=== PATIENT | female | born 1955 | race Caucasian/White ===

== ENCOUNTER 2018-05-18 17:24 | Emergency (ER) | payer OTHER, SELFPAY ==
[2018-05-18] VITALS (13 sets, daily range): BP systolic 116–145; BP diastolic 52–92; PULSE 64–74; RESP 7–20; TEMP 36.7–37.1; O2SAT 92–98
--- NOTE | 2018-05-18 17:39 | DI.RAD_ITS ---
SYMPTOM/DIAGNOSIS: SOB PA AND LATERAL CHEST: Comparison is made with 04/25/17. Heart size and pulmonary vasculature are within normal limits. The lungs are clear and well expanded. No effusions or pneumothoraces are identified. The bones are intact. IMPRESSION: No acute pulmonary process.
--- NOTE | 2018-05-18 18:01 | W.ED.GENAD ---
Discharge Plan Disposition Patient Disposition: HOME Condition: Improving Discharge Details Chief Complaint: SOB Clinical Impression: Bronchitis, Chronic chest pain, Sinus congestion Primary Care Provider: Bela Navas ED Provider: Maria Eugenia Sheets Home Meds and New Rx's Prescriptions: New prednisone 20 mg tablet 20 mg PO DIRECTED Qty: 12 RF: 0 benzonatate [Tessalon Perles] 100 mg capsule 100 mg PO TID PRN (Reason: cough) Qty: 10 RF: 0 doxycycline hyclate 100 mg capsule 100 mg PO BID 5 Days Qty: 10 RF: 0 Continued atorvastatin 40 MG tablet 40 mg PO DAILY RF: 0 chlorthalidone 25 MG tablet 25 mg PO DAILY Qty: 90 RF: 12 isosorbide mononitrate 30 MG tablet extended release 24 hr 30 mg PO DAILY Qty: 30 RF: 0 Hydralazine HCl 10 MG tablet 10 mg PO BID Qty: 60 RF: 0 amlodipine 2.5 MG tablet 5 mg PO DAILY Qty: 30 RF: 12 epinephrine [EpiPen 2-Jorge] 0.3 MG/0.3 ML auto-injector 0.3 mg IJ DAILY PRN PRNQty: 1 RF: 0 aspirin [Aspir-81] 81 MG tablet,delayed release (DR/EC) 81 mg PO DAILY RF: 0 esomeprazole magnesium 40 MG capsule,delayed release(DR/EC) 40 mg PO DAILY RF: 0 metoprolol tartrate 25 MG tablet 25 mg PO DAILY RF: 0 prednisone 20 MG tablet 40 mg PO DAILY Qty: 6 RF: 0 meclizine [Antivert] 25 MG tablet 25 mg PO TID PRNQty: 12 RF: 0 Discharge Instructions Instructions: Sinusitis (ED), Chronic Pain (ED), Acute Bronchitis (ED) Additional Instructions: Drink plenty of fluids and get plenty of rest. Take the antibiotics until finished. Take the cough medicine and albuterol inhaler as needed for coughing and shortness of breath. If your symptoms do not improve or worsen over the next 2 days, he may start the antibiotics. Follow-up with your primary care doctor in 3 days for reevaluation and for referral for stress test if symptoms persist. Return immediately to the emergency department any worsening or new concerning symptoms. Discharge Data Discharge Date/Time-TO BE ENTERED AT DEPARTURE: 05/18/18 19:47 Discharge Physician: Maria Eugenia Sheets Medical Decision Making 62-year-old female with a history of hypertension and hyperlipidemia and an occasional tobacco smoker who presents for sinus congestion for 3 weeks, intermittent shortness of breath and chest pressure for 2 weeks, and dry cough since last night. Denies fever. Denies chest pressure at present. Mainly complaint is cough and pain in throat and head with coughing. Vitals within normal limits. Afebrile. Normal ENT exam. Diminished breath sounds throughout. No wheezing rales or rhonchi. EKG notes a rate of 65, sinus and no acute ST elevation or depression. Presentation appears more consistent with infectious such as bronchitis. Wells score low. Normal heart rate, blood pressure and oxygen saturation making PE less likely and no PE/DVT risk factors. Due to patient's age and history, will do a cardiac workup. Will give an albuterol, prednisone and Toradol and reassess. 1920 --patient feels much better and she is requesting to go home. Lung sounds improved. Labs reviewed and unremarkable. White blood cell count, hemoglobin, troponin within normal limits. Chest x-ray negative. Discussed with patient that her symptoms are likely infectious, due to bronchitis or sinus infection, but with her age and history, can consider an outpatient stress test. Patient states she would rather discuss this with her primary care doctor on reevaluation next week. Will send home with albuterol inhaler, Tessalon Perles, steroid prescription. We will also send home with prescription for antibiotics to take if symptoms not improve or worsen over the next 2 days. She is instructed to return here immediately with any worsening or new concerning symptoms. Medical Records Medical records reviewed: Yes I reviewed the patient's medical records. Imaging Data Radiologic Study: Radiologist's impression: CXR: negative Lab Data Lab results reviewed: Yes I reviewed the patient's lab results. Laboratory Tests Range/Units 05/18/18 05/18/18 18:15 18:15 WBC (4.4-10.8) k/cumm 5.49 RBC (4.00-5.20) m/cumm 4.42 Hgb (12.0-15.5) g/dL 13.8 Hct (36.0-46.0) % 42.4 MCV (80-95) fL 95.9 H MCH (27.0-33.0) pg 31.2 MCHC (32.0-36.0) g/dL 32.5 RDW (11.7-14.6) % 12.9 Plt Count (130-400) x1000/uL 178 MPV (8.0-11.0) fL 10.0 Immature Gran % 0.2 Neutrophils % 72.5 Lymphocytes % 15.1 Monocytes % 9.8 Eosinophils % 2.0 Basophils % 0.4 Absolute Neutrophils (1.2-6.7) k/cumm 3.98 Absolute Lymphocytes (1.2-3.4) k/cumm 0.83 L Absolute Monocytes (0.11-0.7) k/cumm 0.54 Absolute Eosinophils (0.0-0.7) k/cumm 0.11 Absolute Basophils (0.0-0.2) k/cumm 0.02 Sodium (136-145) mmol/L 143 Potassium (3.5-5.1) mmol/L 4.0 Chloride (98-107) mmol/L 107 Carbon Dioxide (21.0-32.0) mmol/L 26.9 Anion Gap (3-11) mmol/L 9.1 BUN (7-18) mg/dL 19 H Creatinine (0.55-1.02) mg/dL 0.85 Estimated GFR/1.73 m2 (mL/min/1.73m2) >= 60.00 Glucose (70-100) mg/dL 85 Calcium (8.5-10.1) mg/dL 8.8 Magnesium (1.8-2.4) mg/dL 2.0 Total Bilirubin (0.2-1.0) mg/dL 0.6 AST (15-37) U/L 18 ALT (12-78) U/L 30 Alkaline Phosphatase (46-116) U/L 93 Troponin I (0.00-0.06) ng/mL < 0.02 Total Protein (6.4-8.2) g/dL 6.2 L Albumin (3.4-5.0) g/dL 3.4 ECG Data Attestation: I personally reviewed and interpreted this ECG (s) as follows: Interpretation: rate 65, sinus, no acute ST depression or elevation. HPI General Mode of arrival: ambulatory. Date/Time Provider Initiated Documentation: 05/18/18 17:29. Limitations to Documentation: no limitations. Information obtained by: patient. HPI Narrative: 62-year-old female with a history of hypertension and hyperlipidemia and an occasional tobacco smoker who presents for sinus congestion and frontal headache for 3 weeks, intermittent shortness of breath and chest pressure for 2 weeks, and dry cough since last night. She also admits to occasional sore throat with coughing and wheezing. 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 She received the flu shot this season. She has been taking tylenol every 4 hours. Denies fever. She denies chest pressure at present. Her main complaint at this time is cough and pain in throat and head with coughing. Related Data Home Medications Medication Instructions Recorded Confirmed epinephrine [EpiPen 2-Jorge] 0.3 mg IJ DAILY PRN PRN #1 packet 12/09/15 11/05/17 aspirin [Aspir-81] 81 mg PO DAILY 04/25/17 11/05/17 esomeprazole magnesium 40 mg PO DAILY 04/25/17 11/05/17 meclizine [Antivert] 25 mg PO TID PRN #12 tab 06/02/17 11/05/17 atorvastatin 40 mg PO DAILY tab-cap 06/22/17 11/05/17 chlorthalidone 25 mg PO DAILY #90 tab 06/28/17 metoprolol tartrate 25 mg PO DAILY 11/05/17 11/05/17 prednisone 40 mg PO DAILY #6 tablet 11/05/17 isosorbide mononitrate 30 mg PO DAILY #30 tab 11/20/17 amlodipine 5 mg PO DAILY #30 tab-cap 11/21/17 benzonatate [Tessalon Perles] 100 mg PO TID PRN #10 cap 05/18/18 doxycycline hyclate 100 mg PO BID 5 Days #10 cap 05/18/18 prednisone 20 mg PO DIRECTED #12 tab 05/18/18 Previous Rx's Medication Instructions Recorded epinephrine [EpiPen 2-Jorge] 0.3 mg IJ DAILY PRN PRN #1 packet 12/09/15 meclizine [Antivert] 25 mg PO TID PRN #12 tab 06/02/17 chlorthalidone 25 mg PO DAILY #90 tab 06/28/17 prednisone 40 mg PO DAILY #6 tablet 11/05/17 isosorbide mononitrate 30 mg PO DAILY #30 tab 11/20/17 amlodipine 5 mg PO DAILY #30 tab-cap 11/21/17 benzonatate [Tessalon Perles] 100 mg PO TID PRN #10 cap 05/18/18 doxycycline hyclate 100 mg PO BID 5 Days #10 cap 05/18/18 prednisone 20 mg PO DIRECTED #12 tab 05/18/18 Allergies Allergy/AdvReac Type Severity Reaction Status Date / Time venom-honey bee Allergy Severe Anaphylaxsi Unverified 05/18/18 17:43 [bee venom (honey bee)] s amitriptyline AdvReac Intermediate Psychosis Unverified 05/18/18 17:43 morphine AdvReac Intermediate Psychosis Unverified 05/18/18 17:43 oxycodone AdvReac Intermediate Psychosis Unverified 05/18/18 17:43 General Stated Complaint: SOB MORA: 2 Review of Systems Review of Systems All systems reviewed & are unremarkable except as noted in HPI and below Constitutional Reports as per HPI, Denies chills and Denies fever(s) Eyes Denies blurry vision ENT Denies dizziness, Reports sore throat and Denies throat swelling Cardiovascular Reports chest pain and Reports dyspnea Respiratory Reports cough, Reports pain with cough, Reports dyspnea and Reports wheezing Gastrointestinal Denies abdominal pain, Denies diarrhea and Denies vomiting Genitourinary Denies hematuria and Denies dysuria Musculoskeletal Denies back pain and Denies numbness Integumentary/Breasts Denies lesions and Denies rash Neurologic Denies dizziness and Denies numbness Allergic/Immunologic Denies throat swelling and Reports wheezing [facility] Medical History Abdominal pain Adenomatous colon polyp Alcohol abuse, in remission Barretts esophagus Chest pain Depression GERD (gastroesophageal reflux disease) Hyperlipidemia Impaired fasting glucose Left ventricular hypertrophy Migraine headache Tobacco dependence Surgical History History of hysterectomy (Chronic) History of knee surgery (Chronic) Hx of cholecystectomy (Chronic) S/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) Social History Smoking/Tobacco Use Status: Current-Occasional alcohol intake: never substance use type: does not use Exam Const General: cooperative, healthy appearing and no acute distress HENMT Head: normal to inspection Ears: hearing grossly normal bilaterally and TM's normal bilaterally General nose exam: external nose normal Face and sinus: normal facial exam and sinuses nontender Mouth: oral mucosae normal Throat: posterior oropharynx normal Eyes General: appearance normal, both eyes and all related structures Pupils: PERRL EOM: EOM intact bilaterally Neck Neck: normal visual inspection and No submandibular swelling Lymphatic: no lymphadenopathy noted Chest Chest: normal inspection of the chest and no tenderness Resp Effort & Inspection: normal respiratory effort, able to speak in complete sentences and cough Quality of cough: other (hoarse voice noted) Auscultation: diminished lung sounds bilaterally, no rhonchi and no wheezes Cardio Rate: regular rate Rhythm: regular rhythm GI Inspection: normal to inspection Palpation: soft, not firm, not rigid and nontender Auscultation: normal bowel sounds Skin General skin exam: no rashes or lesions noted Neuro General: alert, awake and oriented x3 Cognition: normal cognition Speech: speech normal Motor: muscle tone normal throughout Sensory Exam: no sensory deficits noted Extrem General: normal to inspection, full ROM, normal capillary refill, no calf tenderness bilaterally and no edema Psych Appearance: grossly normal Mental Status: mental status grossly normal Speech and Movement: speech and movement normal Affect: normal affect Course Vital Signs Temperature 98.1 F 05/18/18 17:30 Respiratory Rate 20 05/18/18 17:30 Temperature 98.2 F 05/18/18 17:42 Temperature Source Temporal Artery Scan 05/18/18 17:42 Pulse 68 05/18/18 17:42 Respiratory Rate 10 L 05/18/18 17:43 Respiratory Effort 05/18/18 17:43 Respiratory Depth Deep 05/18/18 17:43 Respiratory Pattern Normal 05/18/18 17:43 Blood Pressure 116/92 H 05/18/18 17:42 Pulse Oximetry 95 05/18/18 17:42 Oxygen Delivery Method Room Air 05/18/18 17:42 Oxygen Flow Rate 0 05/18/18 17:42 Pain Level 8 05/18/18 17:40
[2018-05-18] MEDS: Albuterol/Ipratropium 3 ML UPD VIAL UPD (18:12)
[2018-05-18] MEDS: predniSONE 20 MG TAB 60 MG PO (18:12)
[2018-05-18] MEDS: Ketorolac 60 MG/2 ML VIAL IM (18:18)
[2018-05-18 18:32] LABS: Abs Immature Grans 0.01 k/cumm (0.0-0.09); Absolute Basophil Count 0.02 k/cumm (0.0-0.2); Absolute Eosinophil Count 0.11 k/cumm (0.0-0.7); Absolute Lymphocyte Count 0.83 k/cumm (1.2-3.4); Absolute Monocyte Count 0.54 k/cumm (0.11-0.7); Absolute Neutrophil Count 3.98 k/cumm (1.2-6.7); Basophils % 0.4; HCT 42.4 % (36.0-46.0); HGB 13.8 g/dL (12.0-15.5); Immature Grans % 0.2; Lymphocytes % 15.1; Mean Corp. HGB Concentration 32.5 g/dL (32.0-36.0); Mean Corpuscular Hemoglobin 31.2 pg (27.0-33.0); Mean Corpuscular Volume 95.9 fL (80-95); Monocytes % 9.8; Neutrophils % 72.5; Platelet Count 178 x1000/uL (130-400); RBC 4.42 m/cumm (4.00-5.20); RBC Distribution Width 12.9 % (11.7-14.6); White Blood Cell Count 5.49 k/cumm (4.4-10.8)
[2018-05-18 18:44] LABS: ALT 30 U/L (12-78); AST 18 U/L (15-37); Albumin 3.4 g/dL (3.4-5.0); Alkaline Phosphatase 93 U/L (46-116); Anion Gap 9.1 mmol/L (3-11); BUN 19 mg/dL (7-18); Bilirubin, Total 0.6 mg/dL (0.2-1.0); CO2 26.9 mmol/L (21.0-32.0); CREATININE 0.85 mg/dL (0.55-1.02); Calcium 8.8 mg/dL (8.5-10.1); Chloride 107 mmol/L (98-107); Glucose 85 mg/dL (70-100); Sodium 143 mmol/L (136-145); Total Protein 6.2 g/dL (6.4-8.2); Troponin I < 0.02 ng/mL (0.00-0.06)
--- NOTE | 2018-05-18 18:45 | NUR.NOTE ---
patient returned from DI. Nursing Note:
--- NOTE | 2018-05-18 19:05 | DI.VRAD_ITS ---
EXAM: XR Chest, 2 Views EXAM DATE/TIME: 05/18/2018 5:40 PM CLINICAL HISTORY: 62 years old, female; Signs and symptoms; Shortness of breath TECHNIQUE: XR of the chest, 2 views. COMPARISON: CR CHEST 2 VIEWS PA,LAT 04/25/2017 9:23 AM FINDINGS: Lungs: No consolidation. Pleural space: No pleural effusion. No pneumothorax. Heart/Mediastinum: No cardiomegaly. Upper abdomen: Right upper quadrant clips, probable cholecystectomy. Bones/joints: No acute fracture. IMPRESSION: No acute cardiopulmonary pathology. Dictated and Authenticated by: Roya Burt MD. Ordering:CHINYERE Del Cid MD
[2018-05-18] MEDS: Benzonatate 100 MG CAP PO ×2 (19:40)
[2018-05-18] MEDS: Albuterol HFA 8 GM 60 PUFF INH IH (19:40)
== END 2018-05-18 19:47 | disposition home or self-care (01) ==
PROVIDERS: Emergency Provider Physician Assistant; PCP Family Medicine
DX: J40 Bronchitis, not specified as acute or chronic (principal); R07.9 Chest pain, unspecified; R09.81 Nasal congestion; I10 Essential (primary) hypertension; F17.210 Nicotine dependence, cigarettes, uncomplicated
CPT/HCPCS: 36415; 80053; 93005; 94640; 96372; 99285; 71046; 83735; 84484; 85025; 93010; 99284; J1885; J7512; J7620

== ENCOUNTER 2018-06-26 01:23 | Outpatient (CLI) | payer OTHER, SELFPAY ==
--- NOTE | 2018-06-26 16:01 | DI.CT_ITS ---
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 CT Angiography was performed with intravenous infusion of 100 cc's of Omnipaque 350. The examination is compared with [place] [facility] [place]. Left ICA aneurysm clip again noted as described on previous examinations. A multi-lobulated ACOM region aneurysm is again noted. Comparison with the MR Angiogram of 08/09 shows question of more rounded appearance of inferiorly projecting portion of the aneurysm although maximal aneurysm diameter remains about 4 mm. No other significant change identified. The appearance of the aneurysm is essentially unchanged in comparison with CT Angiogram of 07/25/17. CONCLUSION: No gross interval change in maximum dimensions of previously noted ACOM aneurysm.Question interval change in shape but no change in maximum size 4 mm from 08/09/17 MRI. Little or no interval change in appearance or maximum size from [facility] of 07/25/17. Please see above discussion. Follow up CTA or MRA suggested.
[2018-06-26] MEDS: Omnipaque 350 MG/ML 100 ML BTL IJ (16:07)
== END 2018-06-26 01:43 ==
PROVIDERS: PCP Family Medicine; Visit Provider Family Medicine
DX: I67.1 Cerebral aneurysm, nonruptured (principal)
CPT/HCPCS: 70496; J3490

== ENCOUNTER 2018-12-15 19:40 | Emergency (ER) | payer OTHER, SELFPAY ==
[2018-12-15] VITALS (21 sets, daily range): BP systolic 119–157; BP diastolic 44–99; PULSE 67–85; RESP 14–33; TEMP 36.6; O2SAT 95–97
--- NOTE | 2018-12-15 19:55 | ED.GENADUL_ITS ---
Discharge Plan Disposition Patient Disposition: HOME Condition: Stable Discharge Details Chief Complaint: Allergic Clinical Impression: Anaphylaxis Primary Care Provider: Bela Navas ED Provider: Gerard Renee Home Meds and New Rx's Prescriptions: Continued atorvastatin 40 MG tablet 40 mg PO DAILY RF: 0 chlorthalidone 25 MG tablet 25 mg PO DAILY Qty: 90 RF: 12 isosorbide mononitrate 30 MG tablet extended release 24 hr 30 mg PO DAILY Qty: 30 RF: 0 Hydralazine HCl 10 MG tablet 10 mg PO BID Qty: 60 RF: 0 amlodipine 2.5 MG tablet 5 mg PO DAILY Qty: 30 RF: 12 aspirin [Aspir-81] 81 MG tablet,delayed release (DR/EC) 81 mg PO DAILY RF: 0 esomeprazole magnesium 40 MG capsule,delayed release(DR/EC) 40 mg PO DAILY RF: 0 metoprolol tartrate 25 MG tablet 25 mg PO DAILY RF: 0 prednisone 20 MG tablet 40 mg PO DAILY Qty: 6 RF: 0 prednisone 20 mg tablet 20 mg PO DIRECTED Qty: 12 RF: 0 benzonatate [Tessalon Perles] 100 mg capsule 100 mg PO TID PRN (Reason: cough) Qty: 10 RF: 0 epinephrine [EpiPen 2-Jorge] 0.3 MG/0.3 ML auto-injector 0.3 mg IJ DAILY PRN PRNQty: 1 RF: 0 meclizine [Antivert] 25 MG tablet 25 mg PO TID PRNQty: 12 RF: 0 Discharge Instructions Instructions: Anaphylaxis (ED) Additional Instructions: take benadryl as needed for itching and rash, follow dosing on instructions if you have a rash with difficulty breathing, chest pain/pressure, abdominal pain or vomit return to the emergency department after using your epi pen Medical Decision Making 63 yo female who states she has a hx of anaphylaxis to bee stings and was stung by multiple bees just prior to arrival. She has no rash on my exam but states she feels short of breath. She is in no distress speaking in full sentences. Given her hx and symptoms will tx as possible anaphylaxis with IM epi, steroids, benadryl and h2 blockers and monitor pt feeling better, sob improving and remains stable. pt contineus to be stable and no longer having sob. She has pain in the epigastric region and states it feels like her prior gastritis symptoms, she ahs a soft abdomen with no tenderness other than very mild epigastric pain. Will tx with gi cocktail and reaasses pt ambulating without symptoms or respiratory distress. She is requesting d/c and feel this is reasonable given no return of symptoms. Will d/c home Differential Diagnosis allergic reaction, anaphylaxis HPI General Mode of arrival: ambulatory . Date/Time Provider Initiated Documentation: 12/15/18 19:45 . Limitations to Documentation: no limitations . Information obtained by: patient . History of Present Illness 63 year old F presents to the emergency department with the chief complaint of bee stings, described as moderate, Patient started experiencing this hour(s) (1) and it has been constant. No relieving factors improve symptom(s), No exacerbating factors reported . Related Data Home Medications Medication Instructions Recorded Confirmed aspirin [Aspir-81] 81 mg PO DAILY 04/25/17 11/05/17 esomeprazole magnesium 40 mg PO DAILY 04/25/17 11/05/17 meclizine [Antivert] 25 mg PO TID PRN #12 tab 06/02/17 11/05/17 atorvastatin 40 mg PO DAILY tab-cap 06/22/17 11/05/17 chlorthalidone 25 mg PO DAILY #90 tab 06/28/17 metoprolol tartrate 25 mg PO DAILY 11/05/17 11/05/17 prednisone 40 mg PO DAILY #6 tablet 11/05/17 isosorbide mononitrate 30 mg PO DAILY #30 tab 11/20/17 amlodipine 5 mg PO DAILY #30 tab-cap 11/21/17 benzonatate [Tessalon Perles] 100 mg PO TID PRN #10 cap 05/18/18 prednisone 20 mg PO DIRECTED #12 tab 05/18/18 epinephrine [EpiPen 2-Jorge] 0.3 mg IJ DAILY PRN PRN #1 packet 12/15/18 Previous Rx's Medication Instructions Recorded meclizine [Antivert] 25 mg PO TID PRN #12 tab 06/02/17 chlorthalidone 25 mg PO DAILY #90 tab 06/28/17 prednisone 40 mg PO DAILY #6 tablet 11/05/17 isosorbide mononitrate 30 mg PO DAILY #30 tab 11/20/17 amlodipine 5 mg PO DAILY #30 tab-cap 11/21/17 benzonatate [Tessalon Perles] 100 mg PO TID PRN #10 cap 05/18/18 prednisone 20 mg PO DIRECTED #12 tab 05/18/18 epinephrine [EpiPen 2-Jorge] 0.3 mg IJ DAILY PRN PRN #1 packet 12/15/18 Allergies Allergy/AdvReac Type Severity Reaction Status Date / Time venom-honey bee Allergy Severe Anaphylaxsi Unverified 05/18/18 17:43 [bee venom (honey bee)] s amitriptyline AdvReac Intermediate Psychosis Unverified 05/18/18 17:43 morphine AdvReac Intermediate Psychosis Unverified 05/18/18 17:43 oxycodone AdvReac Intermediate Psychosis Unverified 05/18/18 17:43 General Stated Complaint: Allergic MORA: 2 Review of Systems Review of Systems All systems reviewed & are unremarkable except as noted in HPI and below Constitutional Denies chills, Denies fever(s) and Denies weakness Eyes Denies loss of vision ENT Denies change in voice Cardiovascular Denies chest pain Respiratory Denies cough Gastrointestinal Denies abdominal pain, Denies nausea and Denies vomiting Neurologic Denies loss of vision and Denies weakness Psychiatric Denies depression [facility] Medical History Abdominal pain Adenomatous colon polyp Alcohol abuse, in remission Barretts esophagus Chest pain Depression GERD (gastroesophageal reflux disease) Hyperlipidemia Impaired fasting glucose Left ventricular hypertrophy Migraine headache Tobacco dependence Surgical History (Updated 05/21/18 @ 11:07 by Maria Eugenia Sheets DO) History of hysterectomy (Chronic) History of knee surgery (Chronic) Hx of cholecystectomy (Chronic) S/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) Social History Smoking/Tobacco Use Status: Current every day Tobacco Type: cigarettes Smoking cigarettes per day: 3 Alcohol Intake: never Drug use: Never Substance use type: does not use Do you feel safe at home: Yes Do you feel safe in your relationship?: Yes Exam Const General: no acute distress Orientation: alert HENMT Head: normal to inspection Ears: external ears normal General nose exam: external nose normal Mouth: moist mucous membranes Eyes General: appearance normal, both eyes and all related structures Neck Neck: normal visual inspection Resp Effort & Inspection: normal respiratory effort and able to speak in complete sentences Cardio Rate: regular rate Skin General skin exam: no rashes or lesions noted Neuro General: alert and oriented x3 Extrem General: normal to inspection Psych Mental Status: mental status grossly normal Course Vital Signs Temperature 36.6 C 12/15/18 19:42 Pulse 80 12/15/18 19:42 Respiratory Rate 22 12/15/18 19:42 Blood Pressure 138/81 12/15/18 19:42 Pulse Oximetry 96 12/15/18 19:42 Temperature 36.6 C 12/15/18 19:42 Temperature Source Tympanic 12/15/18 19:42 Pulse 80 12/15/18 19:42 Respiratory Rate 22 12/15/18 19:42 Blood Pressure 138/81 12/15/18 19:42 Pulse Oximetry 96 12/15/18 19:42 Oxygen Delivery Method Room Air 12/15/18 19:42 Oxygen Flow Rate 0 12/15/18 19:42 Pain Level 5 12/15/18 19:42 Critical Care Time Critical Care Time: Yes Total Critical Care Time: 45 (minutes) Attestation: time spent monitoring hemodynamics, frequent reassessments and administering IM epi in patient anaphylaxis and potential to deteriorate at any time
[2018-12-15] MEDS: EPINEPHrine 1 MG/ML AMP pres-free 0.3 MG IM (20:01)
[2018-12-15] MEDS: methylPREDNISolone SUCC 125 MG VIAL IVP (20:04)
[2018-12-15] MEDS: Normal Saline 1,000 ML 1000 ML IV (20:09)
== END 2018-12-15 22:05 | disposition home or self-care (01) ==
PROVIDERS: Emergency Provider Emergency Medicine; PCP Family Medicine
DX: R06.02 Shortness of breath (principal); R10.13 Epigastric pain; Z91.030 Bee allergy status
CPT/HCPCS: 36415; 96361; 96365; 96372; 96375; 99284; J0171; J2930

== ENCOUNTER 2019-01-17 10:05 | Outpatient (CLI) | payer OTHER, SELFPAY ==
--- NOTE | 2019-01-17 12:40 | DI.RAD_ITS ---
SYMPTOMS/DIAGNOSIS: RT KNEE PAIN BILATERAL LOWER EXTREMITIES AND LATERAL VIEW RIGHT KNEE: AP images of both lower extremities and a lateral of the right knee are interpreted in conjunction. The AP views of the lower extremities were obtained for leg length determination. There are mild degenerative changes of both hips. There is degenerative changes of the cartilaginous joint space of the medial tibiofemoral joint on the right. Mild hypertrophic spurring noted involving the bones of the right knee. 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
== END 2019-01-17 10:25 ==
PROVIDERS: PCP Family Medicine; Visit Provider Physician Assistant
DX: M25.561 Pain in right knee (principal); M17.11 Unilateral primary osteoarthritis, right knee
CPT/HCPCS: 73560; 77073

== ENCOUNTER 2019-04-09 08:50 | Outpatient (CLI) | payer OTHER, SELFPAY ==
[2019-04-09 15:32] LABS: HCT 43.1 % (36.0-46.0); Mean Corp. HGB Concentration 32.5 g/dL (32.0-36.0); Mean Corpuscular Hemoglobin 30.9 pg (27.0-33.0); Mean Corpuscular Volume 95.1 fL (80-95); Mean Platelet Volume 9.2 fL (8.0-11.0); Platelet Count 320 x1000/uL (130-400); RBC 4.53 m/cumm (4.00-5.20); RBC Distribution Width 12.9 % (11.7-14.6); White Blood Cell Count 12.52 k/cumm (4.4-10.8)
[2019-04-09 16:23] LABS: Anion Gap 8.8 mmol/L (3-11); BUN 20 mg/dL (7-18); CO2 32.2 mmol/L (21.0-32.0); CREATININE 0.81 mg/dL (0.55-1.02); Calcium 9.8 mg/dL (8.5-10.1); Chloride 105 mmol/L (98-107); Glucose 79 mg/dL (74-106); Potassium 4.4 mmol/L (3.5-5.1); Sodium 146 mmol/L (136-145)
--- NOTE | 2019-04-10 10:25 | HPE_ITS ---
Date of service: 04/09/19 Assessment and Plan Assessment and plan (1) Primary osteoarthritis of right knee: Status: Acute Assessment and plan: Right total knee replacement Detaiils of surgery were discussed with patient as well as risks and pertinent anatomy. All questions were answered. History of Present Illness History of Present Illness Chief Complaint: Right knee pain Narrative: Lindsey is a 63 year old female who comes in today for a preop history and physical for a right total knee replacement. She has been dealing with right knee pain for a few years now, and it gets worse when she is ambulating up or down stairs. She also has pain whenever she has to weight bear for a prolong period of time. Uneven ground also increases her pain if she has to navigate it for any length of time. She has tried injection therapy with multiple types of injections, all of which only give her temporary relief. She has had previous surgery on this knee a few years ago, and really has been dealing with pain since the most recent one. X-rays confirm OA with joint space narrowing in both the medial and lateral compartments, as well as bone spurring throughout the knee. She was offered a right total knee replacement, and is anxious to proceed. Pertinent Surgical Information Lindsey has a history of two cerebral aneurism surgeries with coil placement in 2018 and 2019. She has been cleared by her neurologist for her TKA as per a letter scanned into the chart. She has stopped her ASA 325 one week prior to surgery, and will resume after. Patient denies history of NC, angina, asthma, COPD, renal or liver disorders, hepatitis, bleeding disorders, diabetes, immune or thyroid disorders. No complications from anesthesia. Review of Systems Constitutional Constitutional: Denies fever(s) ENT Ears, Nose, Mouth, and Throat: Denies dizziness and Denies sore throat Cardiovascular Cardiovascular: Denies chest pain, Denies palpitations and Denies dyspnea Respiratory Respiratory: Denies cough and Denies dyspnea Gastrointestinal Gastrointestinal: Denies abdominal pain, Denies melena, Denies hematochezia, Denies diarrhea, Denies nausea and Denies vomiting Genitourinary Genitourinary: Denies hematuria and Denies dysuria Neurologic Neurologic: Denies dizziness Endocrine Endocrine: Denies palpitations [facility] Medical History (Updated 04/10/19 @ 10:42 by KRYSTINA Freitas) Abdominal pain Adenomatous colon polyp Alcohol abuse, in remission Barretts esophagus Chest pain Depression GERD (gastroesophageal reflux disease) Hiatal hernia (Chronic) Hyperlipidemia Impaired fasting glucose Left ventricular hypertrophy Migraine headache Tobacco dependence Surgical History History of hysterectomy (Chronic) History of knee surgery (Chronic) Right knee arthroscopy x 2 2015; ~2012 Hx of cholecystectomy (Chronic) S/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) [place] [facility] [place] Social History (Updated 04/10/19 @ 10:45 by KRYSTINA Freitas) Smoking/Tobacco Use Status: Current every day Tobacco Type: cigarettes Alcohol Intake: former Year quit: 1985 Drug use: Never Substance use type: does not use Do you feel safe at home: Yes Do you feel safe in your relationship?: Yes Meds Home Medications and Allergies Home Medications Medication Instructions Recorded Confirmed Type esomeprazole magnesium 40 mg PO DAILY 04/25/17 04/09/19 History atorvastatin 40 mg PO HS tab-cap 06/22/17 04/09/19 History metoprolol tartrate 25 mg PO BID 11/05/17 04/09/19 History epinephrine [EpiPen 2-Jorge] 0.3 mg IJ DAILY PRN PRN #1 packet 12/15/18 04/09/19 Rx amlodipine 2.5 mg PO HS 04/09/19 04/09/19 History aspirin 325 mg tablet 325 mg PO DAILY 04/09/19 04/09/19 History Allergies Allergy/AdvReac Type Severity Reaction Status Date / Time venom-honey bee Allergy Severe Anaphylaxsi Verified 04/09/19 09:02 [bee venom (honey bee)] s amitriptyline AdvReac Intermediate Psychosis Verified 04/09/19 09:02 morphine AdvReac Intermediate Psychosis Verified 04/09/19 09:02 oxycodone AdvReac Intermediate Psychosis Verified 04/09/19 09:02 Exam HENMT Head: normocephalic and atraumatic General nose exam: no nasal discharge Throat: uvula midline and no uvular edema Other: soft palate rises symmetrically, no erythema Eyes Conjunctivae: conjunctivae normal Sclera: sclerae normal Pupils: PERRL Resp Effort & Inspection: normal respiratory effort Auscultation: clear to auscultation bilaterally and no wheezes Cardio Rate: regular rate Rhythm: regular rhythm Heart Sounds: S1 normal, S2 normal and no murmurs GI Palpation: soft, no hepatosplenomegaly and nontender Auscultation: normal bowel sounds Results Labs Result diagrams: 04/09/19 15:05 04/09/19 15:05 Labs: Laboratory Results - last 24 hr 04/09/19 04/09/19 15:05 15:05 WBC 12.52 H RBC 4.53 Hgb 14.0 Hct 43.1 MCV 95.1 H MCH 30.9 MCHC 32.5 RDW 12.9 Plt Count 320 MPV 9.2 Sodium 146 H Potassium 4.4 Chloride 105 Carbon Dioxide 32.2 H Anion Gap 8.8 BUN 20 H Creatinine 0.81 Estimated GFR/1.73 m2 >= 60.00 Glucose 79 Calcium 9.8
== END 2019-04-09 09:10 ==
PROVIDERS: PCP Family Medicine; Visit Provider Student in an Organized Health Care Education/Training Program
DX: M25.561 Pain in right knee (principal); M17.11 Unilateral primary osteoarthritis, right knee; Z01.818 Encounter for other preprocedural examination; Z01.812 Encounter for preprocedural laboratory examination
CPT/HCPCS: 80048; 85027; NC

== ENCOUNTER 2019-04-16 05:55 | Inpatient (IN) | payer OTHER, SELFPAY ==
[2019-04-16] VITALS (13 sets, daily range): BP systolic 94–117; BP diastolic 46–63; PULSE 66–79; RESP 13–18; TEMP 36.3–37.1; O2SAT 92–99
[2019-04-16] MEDS: Celecoxib 200 MG CAP 400 MG PO (06:31)
[2019-04-16] MEDS: Lactated Ringers 1,000 ML 80 ML IV ×3 (06:31→22:21)
[2019-04-16] MEDS: Acetaminophen 500 MG TAB 1000 MG PO ×3 (06:31→19:20)
[2019-04-16] MEDS: Gabapentin 300 MG CAP PO ×2 (06:32→22:13)
[2019-04-16] MEDS: Bupivacaine 0.25% Pres-Free 30 ML VIAL ×2 (07:22→08:55)
[2019-04-16] MEDS: ceFAZolin 2 GM/50 ML BAG IVPB (07:43)
[2019-04-16] MEDS: Ketorolac 30 MG/ML VIAL (08:51)
[2019-04-16] MEDS: Bupivacaine 0.25% Pres-Free 10 ML VIAL (08:53)
[2019-04-16] MEDS: Normal Saline 20 ML VIAL (08:56)
[2019-04-16] MEDS: Bupivacaine LIPOSOME/PF 133 MG/10 ML VIAL IJ ×2 (08:58→09:02)
--- NOTE | 2019-04-16 11:53 | NUR.NOTE ---
Nursing Note: 1058: pt arrives from pacu via pt bed to room 227. pt is alert/oriented x 3. pt has cryo cuff in place, prema wrap dressing with mepilex intact; no s/s of drainage. pt has +pp's bilaterally. pt has giordano draining clear dark yellow urine. pt has patent IV in RH with LR @ 80 cc/hr. pt HR regular, LS clear anterior and posteriorly, positive bowel sounds. pt oriented to call alba/tv remote. pt tolerating crackers and gingerale at this time. SCD to LLE. pillow placed behind pt's right heel. continue to monitor.
[2019-04-16] MEDS: ceFAZolin 1 GM/50 ML BAG IVPB ×2 (12:54→19:19)
--- NOTE | 2019-04-16 13:42 | W.PM.OP ---
Date of service: 04/16/19 Time of Service: 09:42 Operative Note Operative Note DATE OF PROCEDURE: 04/16/19 PRE-OP DIAGNOSIS: Right Knee Osteoarthritis POST-OP DIAGNOSIS: same PROCEDURE: Right Total Knee Replacement SURGEON: Donald Olson PHOTOGRAMMETRIC COMPILATION SPECIALIST: Terri Horton ANESTHESIA: regional and spinal ESTIMATED BLOOD LOSS: 50 PATHOLOGY: none sent TOURNIQUET TIME: 34 COMPLICATIONS: None Patient was transported to: PACU Patient's condition: stable Implants: 1. Depuy Attune Posterior Stabilized Femoral Component, Size 5 narrow 2. Depuy Attune Fixed Platform Tibial Component, Size 3 3. Depuy Attune 5 x 7 fixed, Stabilized Poly 4. Depuy Attune Patellar Component, Size 35 mm Indications: I have seen Lindsey in clinic for symptoms of RIGHT knee arthritis, confirmed with radiographic findings. Lindsey has exhausted nonoperative methods and was having significant limitations in daily function and desired better function and less pain. I discussed the technical details of a knee replacement. I explained the risks of the procedure to include, but not limited to, bleeding, infection, pain, stiffness, fracture, damage to nerves and vessels, damage to muscles and tendons, loosening, need for repeat procedure, blood clot and cardiopulmonary demise. Despite these risks, Lindsey elected to proceed. Findings: There was notable signs of arthritis throughout the knee, focus mostly on the medial tibia and medial, posterior femur. Procedure Description: Lindsey was greeted in the preoperative holding area where the correct side was identified and marked. The consent was reviewed with the patient and signed. The history and physical was updated. All questions were answered. Preoperative mediacations were administered: Acetaminophen 1000mg, Celebrex 400mg, and Gabapentin 300mg. An adductor canal block was then administered by the anesthesia team in the PACU. Lindsey was taken back to the operating room. A spinal anesthestic was then administered. The patient was placed into the supine position on the operating room table. A nonsterile tourniquet was placed high onto the leg but only used for cementing. Posts were placed for positioning during the procedure. All bony prominences were well padded. Prophylactic antibiotics in the form of cefazolin were administered. 1g of Tranxemic Acid was given intravenously within 30 minutes of incision. The right leg was then prepped with Chloraprep and draped in a standard fashion with impervious stockinette. A second prep with Chloraprep was performed prior to application of Iodine impregnated skin protection. A timeout to confirm correct identity, side and site, procedure, allergies, anesthesia, and medical concerns was performed. With the knee in some flexion, a midline incision was made overlying the knee. Full thickness skin flaps were raised once the extensor mechanism was encountered. These were raised medially and laterally. Any bleeding was controlled with electrocautery. Once the extensor mechanism was fully exposed, a medial parapatellar arthrotomy was performed in a flexed position. All bleeding from the arthrotomy and the geniculate arteries was coagulated. A medial subperiosteal peel was performed with electrocautery to the midcoronal plane. The fat pad was removed while keeping the patellar tendon protected. The anterior distal femur synovium was removed for later visualization. The ACL and PCL were resected and the anterior horn of the lateral meniscus was transected. The knee was then flexed with the patella everted. Using a step drill, and based on preoperative templating, the femoral canal was entered. This was done with a step drill without any difficulty. The intramedullary distal femoral cut guide was inserted, set to a 5 degree valgus cut and 9mm cut thickness. The distal femoral cut guide was then held in position and pinned. With the soft tissues protected, the distal cut was performed. This was passed over a few times to ensure a planar cut. I then turned attention to the tibia. The extramedullary guide was placed onto the leg. The distal aspect was slid medial to adjust for position of center of ankle and stay in line with shaft of the tibia. Approximately 3-5 degrees of posterior slope was kept in the proximal cutting guide. The center of the guide was aligned with the PCL. The stylus was used to assess cut thickness. The medial side, most involved side, was set for a 4mm cut. This was then held in position and pinned into place with 2 additional pins and a cross pin for stability. The medial and lateral collateral ligaments were protected and the cut was performed. With this completed, it was assessed and noted to be of appropriate dimensions. The guide was removed. A spacer block was inserted and the knee was brought into extension. The 6mm spacer block provided full extension, without hyperextension and with stability of both the medial and lateral collateral ligaments was assessed. The pins from the femur and the tibia were then removed. The distal femur was then sized. The anterior stylus was placed onto the lateral ridge of the anterior femur. This indicated a size 5 narrow femur. The external rotation of the guide was adjusted to 5 degrees to match the epicondylar axis, perpendicular to Dickinson?s line. The 4-in-1 cutting guide was the placed. The posterior medial femur cut was evaluated and appeared of good thickness. The spacer block was inserted underneath the cutting guide and stability was confirmed in 90 degrees of flexion. An caesar wing was used to confirm appropriate position of the anterior cut to avoid notching. This cutting guide was ensured to be flush on the cut surface and then pinned into place with headed pins. While protecting the soft tissues, quad tendon, and collateral ligaments, the anterior and posterior cuts were performed with a saw. The central two pins were removed and the posterior and anterior chamfers were cut next. The notch-cutting guide was placed. This was pinned to lateralize the femoral component as much as possible while keeping it flush on the cut surface. This was then pinned into position. A reciprocating saw was used to make the notch cut. A rasp smoothed the cut surfaces. A trial posterior stabilized femoral component was then inserted, impacted down to the cut surfaces, and the lug holes were drilled. A provisional trial tibial component was placed and the knee was brought through range of motion. The polyethylene was trialed until there was good flexion and extension with excellent stability to the medial and lateral collaterals. The patella was tracking without thumbs. The tibial cut surface was fully exposed. The medial and lateral menisci were removed. The tibia was then sized as a 3. The tibia had been previously marked during trialing to correspond to the center of the tibial component to help with rotation. The trial was aligned to this floyd, approximately rotated to the medial 1/3rd of the tibial tubercle. The trial was pinned into place. The tibia was prepared with a reamer and a keel punch. The knee was then brought into extension and the patella was measured as 25 mm. Using the patellar clamp and cut guide, this was resected to a flat surface with at least 13mm of thickness remaining. The size 35 patella fit the best. This was oriented and then clamped into position. The lugs were drilled. The trial components were removed. The final components, except for the polyethylene were opened on the back table. The periosteal and capsular tissues, especially posteriorly, around the knee were then systematically injected with a periarticular cocktail consisting of 50cc 0.25% Marcaine, 30mg Ketorolac, 20cc of Exparal and 50cc of injectable saline. The tourniquet was then inflated to 275mmHg. The knee was thoroughly irrigated with a pulse lavage and dried. On the back table, with the implants opened, the cement was mixed. 2 batches of antibiotic laden cement were prepared with vacuum assistance. After the cement was ready a small amount was placed on to the back side of the tibial component at the keel. A small amount was placed onto the posterior flange of the femur. Cement was manual pressurized and impregnated into the cut surface of the tibia. The tibial component was then inserted into the cut surface and impacted into position. Excess cement was removed and the component was reimpacted. Again, excess cement was removed and our attention was then turned to the femur. The femoral cut surface was once again dried and cement was manually impacted into the cut surface. The femoral component was lined with the lug holes and impacted. Excess cement was removed. It was ensured to be down against the cut surface. The trial polyethylene was then inserted and the leg was brought out into full extension for the duration of the cement curing process, approximately 15min. Cement was lastly manually impacted into the cut surface of the patella and the patellar button was clamped into position and held. During this process attention was turned to the gutters of the knee and for all interfaces for any excess cement. While the cement was hardening, the knee was irrigated with Irrisept chlorhexadine solution. This was allowed to sit in the knee for 3 minutes. After the cement had finally cured, approximately 18min, the clamp was removed from the patella and the knee was taken through range of motion. A size 7 mm polyethylene component provided the best range of motion and stability with less than 2mm gapping with medial and lateral stress and full extension without significant hyperextension. The patella was tracking with a no-thumbs technique. The trial poly was removed and once again the knee was checked for any loose, excess, or errant cement. The poly component was then inserted and impacted into position after cleaning and drying the tibial tray. The capsule was then reapproximated with a No. 1 Vicryl at multiple locations. The capsule was finally closed with a No. 2 Stratafix, barbed suture. The tourniquet was then released and the arthrotomy appeared watertight without significant bleeding. The second dosing of 1g TXA was started. Deep tissues were then reapproximated with 0 Vicryl and 2-0 Vicryl. The skin was closed with a running 3-0 Monocryl in a subcuticular fashion. This was reinforced with skin glue. A Mepilex silver dressing was applied along with a [id number] MARLEE wrap. A CryoCuff was applied. Lindsey was transferred to the hospital bed without difficulty an suffering no apparent complication. Lindsey has a good prognosis. Physical therapy will start today and without restrictions, weight-bearing as tolerated. Aspirin 325 mg daily, her home regimen, will be used for DVT prophylaxis.
--- NOTE | 2019-04-16 14:04 | IN_ITS ---
Date of service: 04/16/19 Time of Service: 12:58 PT Notes Visit Reasons: RIGHT KNEE DJD Physical Therapy Inpatient Initial Evaluation Date: 04/16/2019 Referring Doctor: Donald Olson MD PT Orders: PT CONSULT: Status post Ortho surgery. Status post right TKA. Precautions: Fall. Standard. WBAT on right LE. Patient Profile/Admitting Diagnosis: Patient is a 63-year-old female who is status post right total knee arthroplasty on POD 0 due to primary unilateral osteoarthritis of right knee. PMHX: Medical History (Updated 04/10/19 @ 10:42 by KRYSTINA Freitas) Abdominal pain Adenomatous colon polyp Alcohol abuse, in remission Barretts esophagus Chest pain Depression GERD (gastroesophageal reflux disease) Hiatal hernia (Chronic) Hyperlipidemia Impaired fasting glucose Left ventricular hypertrophy Migraine headache Tobacco dependence Surgical History History of hysterectomy (Chronic) History of knee surgery (Chronic) Right knee arthroscopy x 2 2015; ~2012 Hx of cholecystectomy (Chronic) S/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) July 2017 - [facility] [place] October [place] - [place] Social History/Home Situation: Patient lives alone in a 2 floor house with 5 steps to enter and rails on both side. She has a set of stairs to the basement and another set to the second floor of the house. She states however that she she has planned on staying on the main floor of the house which she has previously set up before the surgery. She has 28 cats. 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 She still drives. She is independent with all aspects of ADLs [employer] WORK[employer]. Equipment Owned/DME: Front-wheeled walker, SPC, Subjective: Patient is agreeable to a PT consult. She reports tightness on the back of her right knee at rest 10 with movement. She reports no pain on the surgery site even with ambulation activity. She complained about being mildly lightheaded upon sitting up on the edge of the bed but patient was able to tolerate level surface ambulation without undue difficulty. Objective: General Observation: Patient seen resting in bed. Cryo/Cuff on right knee. Bowen wraps her right knee. TEDS on left leg. IV in right UE. Anti-thromboembolic pumps on left leg. Mental Status: Alert and oriented x4 Pain: 0/10 ROM: Right Upper Extremity: Shoulder Flexion WFL. Shoulder abduction WFL. Elbow flexion WFL. Wrist flexion WFL. Opening and closing of hand WFL. Left Upper Extremity: Shoulder Flexion WFL. Shoulder abduction WFL. Elbow flexion WFL. Wrist flexion WFL. Opening and closing of hand WFL. Right Lower Extremity: Hip flexion WFL. Hip abduction WFL. Knee flexion 0-105. Knee extension -15 degrees. Ankle dorsiflexion WFL. Ankle plantarflexion WFL. Left Lower Extremity: Hip flexion WFL. Hip abduction WFL. Knee flexion WFL. Ankle dorsiflexion WFL. Ankle plantarflexion WFL. Strength: Right Upper Extremity: Shoulder flexors 5/5. Shoulder abductors 5/5. Elbow flexors 5/5. Elbow extensors 5/5. Hogshead Hand strong. Left Upper Extremity: Shoulder flexors 5/5. Shoulder abductors 5/5. Elbow flexors 5/5. Elbow extensors 5/5. Hogshead Hand strong. Right Lower Extremity: Hip flexors 4/5. Hip abductors 4/5. Knee flexors 35. Knee extensors 3-/5. Ankle dorsiflexors 5/5. Ankle plantarflexors 5/5. Left Lower Extremity:Hip flexors 5/5. Hip abductors 5/5. Knee flexors 5/5. Knee extensors 5/5. Ankle dorsiflexors 5/5. Ankle plantarflexors 5/5. Sensation: Intact as to pain and pressure on bilateral lower extremities. Bed Mobility/Transfers: Rolling supervision Supine to sit supervision Sit to supine supervision Sit to stand CGA Stand to sit CGA CGA Bed to chair CGA Chair to bed CGA Gait: Patient tolerated level surface ambulation of 80 feet using front wheeled walker with CGA and wheelchair follow of PT and SBA as well as IV pole manag ement of MANAGER PSYCHOLOGY initially using a step to gait pattern but was able to tolerate step through gait pattern towards the end of the walk. Patient denied any dizziness, chest pain, and headache throughout gait activity. R LE in good alignment. Balance: Static Sitting: Normal Dynamic Sitting: Normal Static Standing: Fair Dynamic Standing: Fair Special Tests: Mobility Limitations Standardized Measure [facility] AM-PAC 6 clicks Basic Mobility Inpatient Short Form: Raw Score: 20 CMS Score: 36% deficit Informed Consent/Education: Patient instructed in purpose of PT consult and plan of care. Education and training provided for hourly performance of gluteal and quadriceps setting exercises x10 as well as ankle pumping exercises x 20 by patient. Assessment: Patient is a 63-year-old female who is status post right total knee arthroplasty on POD 0 due to primary unilateral osteoarthritis of right knee. Patient is pleasant and cooperative. She is motivated to return to her prior level of function and would like to work back full-time whenever medically permissible. Her prognosis for regaining her prior level of function is good. Patient presents with clinical signs and symptoms consistent with current/admitting diagnoses that have resulted to mobility limitations, gait instability, generalized weakness, and impairment of motor control as demonstrated by the following impairment level findings: 1. Decreased strength to R LE major muscle groups 2. Impaired standing balance 3. Impaired activity tolerance 4. Limitation of joint range of motion in right knee Impairments are contributing to the following functional limitations: 1. Increased dependence with transfers 2. Inability to safely ambulate without assistive device and physical assistance 3. Increase completion time for mobility ADL performance 4. Increased fall risk 5. Inability to negotiate steps alone safely Patient is assessed as a 22260 moderate complexity based on the following: History: Patient is a 63-year-old female who is status post right total knee arthroplasty on POD 0 due to primary unilateral osteoarthritis of right knee. Examination: Demonstrable impairment in strength, balance, and range of motion with underlying impairments and functional limitations as documented above Presentation:Evolving Decision Makin moderate complexity Goals: Goals X1 week 1. Supine-Sit independent 2. Sit-Supine independent 3. Sit-Stand independent 4. Stand-Sit independent 5. Bed-Chair independent 6. Chair-Bed independent 7. Independent gait on level surface with use of least restrictive device for at least 300 feet without report of pain nor dyspnea 8. Independent stair negotiation while holding onto bilateral rails for at least 5 steps without report of pain nor dyspnea 9. Independent with home exercise program 10. Good static and dynamic standing balance/tolerance Plan of Care/Treatment Plan: 1-2x/day, 7 days/week x 1 week. Plan of care has been reviewed with the [employer] ST[employer] WORKER providing the service under Physical Therapy direction. Initiate Physical Therapy intervention for strengthening, bed mobility, transfers, gait, stairs, balance training, use of assistive device. DISCHARGE RECOMMENDATIONS: May benefit from skilled physical therapy services according to orthopedic surgeon's timeline recommendations. Patient will be educated and trained on home exercise program per TKA exercise protocol in preparation for outpatient physical therapy services. TREATMENT CODE/TIME: 77785 x 30 minutes, 35799 x 18 minutes beginning at 12:58 PM Thank you very much for this referral. Marsha Armendariz PT, DPT, CLT [facility]
[2019-04-16] MEDS: traMADol 50 MG TAB PO (14:18)
--- NOTE | 2019-04-16 14:30 | CHAPLAIN ---
Lindsey was resting in bed when I visited, and told me about her knee surgery. 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 She had a friend visiting while I was there. I explained my role and offered support.
[2019-04-16] MEDS: HYDROmorphone 2 MG/ML VIAL 0.5 MG IVP ×2 (15:55→22:20)
[2019-04-16] MEDS: Normal Saline Flush 10 ML SYR IV ×2 (15:56→22:21)
[2019-04-16] MEDS: Celecoxib 200 MG CAP PO (19:20)
[2019-04-16] MEDS: Metoprolol 25 MG TAB PO (19:20)
[2019-04-16] MEDS: Atorvastatin 40 MG TAB PO (22:13)
[2019-04-16] MEDS: Aspirin 325 MG TAB PO (22:13)
[2019-04-16] MEDS: amLODIPine 2.5 MG TAB PO (22:14)
[2019-04-17 00:13] VITALS: BP 113/58; PULSE 79; RESP 17; TEMP 36.2; O2SAT 94
[2019-04-17] MEDS: Calcium Carbonate *TUMS* 500 MG CHEW PO (02:04)
[2019-04-17 04:00] VITALS: BP 105/81; PULSE 61; RESP 18; TEMP 36.6; O2SAT 95
[2019-04-17] MEDS: ceFAZolin 1 GM/50 ML BAG IVPB (04:07)
[2019-04-17] MEDS: HYDROmorphone 2 MG/ML VIAL 0.5 MG IVP (07:06)
[2019-04-17] MEDS: Normal Saline Flush 10 ML SYR IV (07:07)
--- NOTE | 2019-04-17 07:19 | DSE_ITS ---
Date of service: 04/17/19 Time of Service: 07:19 DS: Diagnosis Discharge Diagnosis (1) Primary osteoarthritis of right knee: Status: Acute Discharge Plan Disposition Patient Disposition: HOME Condition: Good Discharge Details Reason For Visit: RIGHT KNEE DJD Admit Date/Time: 04/16/19 05:55 Admit Provider: Donald Olson Attending Provider: Donald Olson Primary Care Provider: Bela Navas [facility] Course Hospital Course: Patient was admitted to the medical/surgical floor following the procedure. It was tolerated well without any notable medical, surgical, or anesthetic complications. Mobilization began postoperatively. The giordano catheter was removed and voiding spontaneously. Vitals were stable. Pain medications were trialed until appropriate response without side effects. Physical therapy worked with the patient and was cleared for discharge home. No acute medical issues. Home Meds and New Rx's Prescriptions: New celecoxib 200 mg capsule 200 mg PO BID PRN (Reason: pain) Qty: 60 RF: 1 acetaminophen 500 mg tablet 500 mg PO Q6H PRN PRN (Reason: pain) Qty: 90 RF: 3 gabapentin 300 mg capsule 300 mg PO QHS Qty: 7 RF: 0 hydrocodone-acetaminophen 7.5-325 mg tablet 1 tab PO Q6H PRN (Reason: pain) Qty: 12 RF: 0 Continued aspirin 325 mg tablet 325 mg PO DAILY RF: 0 atorvastatin 40 MG tablet 40 mg PO HS RF: 0 esomeprazole magnesium 40 MG capsule,delayed release(DR/EC) 40 mg PO DAILY RF: 0 metoprolol tartrate 25 MG tablet 25 mg PO BID RF: 0 epinephrine [EpiPen 2-Jorge] 0.3 MG/0.3 ML auto-injector 0.3 mg IJ DAILY PRN PRNQty: 1 RF: 0 amlodipine 2.5 MG tablet 2.5 mg PO HS RF: 0 Discharge Instructions Additional Instructions: Dr. Olson?s Total Knee Discharge Instructions Activity: The most important activity is to walk. You should try to take short walks a few times a day. It is important that when resting you work on keeping the knee straight. Avoid putting a pillow behind the knee as this will encourage flexion. Work on range of motion exercises as provided by Physical Therapy. - Start outpatient physical therapy within 2 weeks. - You should wear the PATTI hose on both legs for 2 weeks. Dressing: Keep the surgical dressing in place for at least one week. After the first week it may be removed and replace with light gauze and tape or nothing. It may get wet after 3 days but avoid soaking the dressing. If it gets wet, ju st lightly pat dry. Medications: - You should take Tylenol and anti-inflammatory Celebrex as your primary pain control medications - You have been prescribed a stronger pain medication Hydrocodone for breakthrough pain, take as needed as prescribed. - You should continue your stomach acid reduction agent Esomeprazole to help reduce stomach acid and reflux. - You will be taking Aspirin 325mg daily for DVT prevention unless instructed otherwise. - If you have constipation you should take Colace or Miralax (both [id number]). It takes most people 3-4 days to have a bowel movement. Follow-up: 2 weeks Referrals: Donald Olson MD [ [facility] STAFF PHYSICIAN] - Activity:: Activity as Tolerated Equipment/Supplies:: Walker Diet:: As Tolerated Discharge Orders Discharge Orders: Discharge Order (Routine); Ordered 04/17/19 Ordered By: Donald Olson DS: Summary Status at Discharge Functional status at discharge: uses cane/walker Overall status at discharge: patient is progressing back to baseline Mental Status: mental status grossly normal Speech and Movement: speech and movement normal Mood: congruent mood Affect: normal affect Exam Psych Mental Status: mental status grossly normal Speech and Movement: speech and movement normal Mood: congruent mood Affect: normal affect DS: Data Vitals/I&O Vitals and I&O: Vital Signs Temperature 36.6 C 04/17/19 04:00 Temperature Source Skin 04/17/19 04:00 Pulse 61 04/17/19 04:00 Pulse Rhythm Regular 04/17/19 04:00 Respiratory Rate 18 04/17/19 04:00 Respiratory Effort Non-Labored 04/17/19 04:00 Respiratory Depth Normal 04/17/19 04:00 Respiratory Pattern Normal 04/17/19 04:00 Blood Pressure 105/81 04/17/19 04:00 Pulse Oximetry 95 04/17/19 04:00 Respiratory End-tidal CO2 33 04/16/19 10:50 Oxygen Delivery Method Room Air 04/17/19 04:00 Oxygen Flow Rate 0 04/17/19 04:00 Pain Level 6 04/17/19 07:06 Comment 04/16/19 11:10 Intake & Output 04/16/19 04/16/19 04/17/19 11:59 23:59 11:59 Intake Total 954 / 2231.333 1277.333 / 2231.333 360 / 360 Output Total 50 / 1200 1150 / 1200 600 / 600 Balance 904 / 1031.333 127.333 / 1031.333 -240 / -240 Weight 63.3 kg Intake: IV 954 / 6641.669 1853.333 / 1990.333 Oral 240 / 240 360 / 360 Output: Urine 50 / 1200 1150 / 1200 600 / 600 Other: Urine Color Light Lakisha Yellow Pale Yellow Urine Appearance Clear Clear Clear Comment urine flow increasing into giordano at this time. pt states she still feels dry. Emesis Description None [facility] Medical History Abdominal pain Adenomatous colon polyp Alcohol abuse, in remission Barretts esophagus Chest pain Depression GERD (gastroesophageal reflux disease) Hiatal hernia (Chronic) Hyperlipidemia Impaired fasting glucose Left ventricular hypertrophy Migraine headache Tobacco dependence Surgical History History of hysterectomy (Chronic) History of knee surgery (Chronic) Right knee arthroscopy x 2 2015; ~2012 Hx of cholecystectomy (Chronic) S/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) July 2017 - [facility] [place] October 2018 - [place] Social History Smoking/Tobacco Use Status: Current every day Tobacco Type: cigarettes Alcohol Intake: former Year quit: 1985 Drug use: Never Substance use type: does not use Do you feel safe at home: Yes Do you feel safe in your relationship?: Yes
[2019-04-17 08:04] VITALS: BP 144/72; PULSE 73; RESP 16; TEMP 36.9; O2SAT 93
[2019-04-17] MEDS: Docusate Sodium 100 MG CAP PO (08:28)
[2019-04-17] MEDS: Acetaminophen 500 MG TAB PO (08:28)
[2019-04-17] MEDS: Metoprolol 25 MG TAB PO (08:28)
[2019-04-17] MEDS: Esomeprazole 40 MG CAPCR PO (08:29)
[2019-04-17] MEDS: Celecoxib 200 MG CAP PO (08:29)
--- NOTE | 2019-04-17 08:51 | PT.INTREAT ---
Date of service: 04/17/19 Time of Service: 08:51 PT Notes Visit Reasons: RIGHT KNEE DJD Inpatient Physical Therapy Treatment Note [facility] Date: 04/17/19 PRECAUTIONS: Fall, WBAT R SUBJECTIVE: Lindsey is agreeable to participating in PT. She states that she has some R knee stiffness and minimal pain at this point. She states that she would like to go home today. OBJECTIVE: PAIN: Patient c/o R knee stiffness BED MOBILITY/TRANSFERS Supine-sit: I with HOB flat Sit-stand: I Stand-sit: I GAIT Assistive Device: FWW Weight bearing: WBAT R Assist: S Distance: 150' Deviation: Step-through THEREX: Patient completed a LE strengthening and stabilization program, in a supine position, as per flow sheet. Patient ends with crypcuff to R knee. STAIRS: Up/down 3x4 and 2x6 using B rails and a step-to pattern, independently; up/down 3x4 and 2x6 using 1 axillary crutch and a step-to pattern with SBA ASSESSMENT: Patient tolerated session well, with minimal c/o R knee pain. She was able to tolerate a progression in gait distance with FWW support and supervision, utilizing a [id number] gait pattern. PLAN: As per primary PT TREATMENT CODE/TIME: 30 minutes; 29301, 60632
--- NOTE | 2019-04-18 09:41 | PT.INDS ---
Date of service: 04/18/19 Time of Service: 09:42 PT Notes Visit Reasons: RIGHT KNEE DJD Inpatient Physical Therapy Discharge Summary Dates: 04/18/2019 Dates of Service: 04/16/2019 and 04/17/2019 This is a clinical summary of care provided on the duration of dates listed above. No charge was made in the completion of this documentation. Referring Doctor: Donald Olson MD PT Orders: PT CONSULT: Status post Ortho surgery. Status post right TKA. Precautions: Fall. Standard. WBAT on right LE. Patient Profile/Admitting Diagnosis: Patient is a 63-year-old female who is status post right total knee arthroplasty on POD 0 due to primary unilateral osteoarthritis of right knee. PMHX: Medical History (Updated 04/10/19 @ 10:42 by KRYSTINA Freitas) Abdominal pain Adenomatous colon polyp Alcohol abuse, in remission Barretts esophagus Chest pain Depression GERD (gastroesophageal reflux disease) Hiatal hernia (Chronic) Hyperlipidemia Impaired fasting glucose Left ventricular hypertrophy Migraine headache Tobacco dependence Surgical History History of hysterectomy (Chronic) History of knee surgery (Chronic) Right knee arthroscopy x 2 2015; ~2012 Hx of cholecystectomy (Chronic) S/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) July 2017 - [facility] [place] Social History/Home Situation: Patient lives alone in a 2 floor house with 5 steps to enter and rails on both side. She has a set of stairs to the basement and another set to the second floor of the house. She states however that she she has planned on staying on the main floor of the house which she has previously set up before the surgery. She has 28 cats. 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 She still drives. She is independent with all aspects of ADLs [employer]. Equipment Owned/DME: Front-wheeled walker, SPC, Subjective: NT. Objective: General Observation: NT Mental Status: NT Pain: NT ROM: Right Upper Extremity: Shoulder Flexion WFL. Shoulder abduction WFL. Elbow flexion WFL. Wrist flexion WFL. Opening and closing of hand WFL. Left Upper Extremity: Shoulder Flexion WFL. Shoulder abduction WFL. Elbow flexion WFL. Wrist flexion WFL. Opening and closing of hand WFL. Right Lower Extremity: Hip flexion WFL. Hip abduction WFL. Knee flexion 0-105. Knee extension -15 degrees. Ankle dorsiflexion WFL. Ankle plantarflexion WFL. Left Lower Extremity: Hip flexion WFL. Hip abduction WFL. Knee flexion WFL. Ankle dorsiflexion WFL. Ankle plantarflexion WFL. Strength: Right Upper Extremity: Shoulder flexors 5/5. Shoulder abductors 5/5. Elbow flexors 5/5. Elbow extensors 5/5. Route Vending Machine Servicer strong. Left Upper Extremity: Shoulder flexors 5/5. Shoulder abductors 5/5. Elbow flexors 5/5. Elbow extensors 5/5. Route Vending Machine Servicer strong. Right Lower Extremity: Hip flexors 4/5. Hip abductors 4/5. Knee flexors 35. Knee extensors 3-/5. Ankle dorsiflexors 5/5. Ankle plantarflexors 5/5. Left Lower Extremity:Hip flexors 5/5. Hip abductors 5/5. Knee flexors 5/5. Knee extensors 5/5. Ankle dorsiflexors 5/5. Ankle plantarflexors 5/5. Sensation: Intact as to pain and pressure on bilateral lower extremities. Bed Mobility/Transfers: Rolling independent Supine to sit independent Sit to supine independent Sit to stand independent Stand to sit independent Bed to chair independent Chair to bed independent Gait: Patient tolerated level surface ambulation of 150 feet using front wheeled walker with supervision with step through pattern. Patient was tammy to tolerate up and down three 4-inch steps and two 6-inch steps with step-to [id number] pattern while holding onto bilateral rails with SBA. Home patient denied any dizziness, chest pain, and headache throughout gait activity. R LE in good alignment. Balance: Static Sitting: Normal Dynamic Sitting: Normal Static Standing: Fair Dynamic Standing: Fair Assessment: Patient is a 63-year-old female who is status post right total knee arthroplasty on POD 0 due to primary unilateral osteoarthritis of right knee. Patient is pleasant and cooperative. She is motivated to return to her prior level of function and would like to work back full-time whenever medically permissible. Her prognosis for regaining her prior level of function is good. Patient continues to present with clinical signs and symptoms consistent with current/admitting diagnoses that have resulted to mobility limitations, gait instability, generalized weakness, and impairment of motor control as demonstrated by the following impairment level findings: 1. Decreased strength to R LE major muscle groups 2. Impaired standing balance 3. Impaired activity tolerance 4. Limitation of joint range of motion in right knee Impairments continuing to contribute to the following functional limitations: 1. Increased dependence with transfers 2. Inability to safely ambulate without assistive device and physical assistance 3. Increase completion time for mobility ADL performance 4. Increased fall risk 5. Inability to negotiate steps alone safely Goals: Goals X1 week 1. Supine-Sit independent MET 2. Sit-Supine independent MET 3. Sit-Stand independent MET 4. Stand-Sit independent MET 5. Bed-Chair independent MET 6. Chair-Bed independent MET 7. Independent gait on level surface with use of least restrictive device for at least 300 feet without report of pain nor dyspnea NOT MET 8. Independent stair negotiation while holding onto bilateral rails for at least 5 steps without report of pain nor dyspnea NOT MET 9. Independent with home exercise program NOT MET 10. Good static and dynamic standing balance/tolerance NOT MET DISCHARGE RECOMMENDATIONS: May benefit from skilled physical therapy services according to orthopedic surgeon's timeline recommendations. Patient will be educated and trained on home exercise program per TKA exercise protocol in preparation for outpatient physical therapy services. TREATMENT CODE/TIME: AL. Thank you very much for this referral. Marsha Armendariz PT, DPT, CLT [facility]
== END 2019-04-17 13:46 | disposition home or self-care (01) | DRG 470 ==
LOC: PDS 05:56 → MS 11:17
PROVIDERS: Admitting Provider Student in an Organized Health Care Education/Training Program; PCP Family Medicine; Visit Provider Student in an Organized Health Care Education/Training Program
PROC: 0SRC0J9 Replacement of Right Knee Joint with Synthetic Substitute, Cemented, Open Approach (ICD-10-PCS; CPT 27447; principal; 2019-04-16 07:30)
DX: M17.11 Unilateral primary osteoarthritis, right knee (principal); M25.561 Pain in right knee; Z96.651 Presence of right artificial knee joint; G89.18 Other acute postprocedural pain; K21.9 Gastro-esophageal reflux disease without esophagitis; E78.5 Hyperlipidemia, unspecified; F32.9 Major depressive disorder, single episode, unspecified; F17.210 Nicotine dependence, cigarettes, uncomplicated
CPT/HCPCS: 27447; 76942; 97110; 97162; 97530; NC; J0690; J1100; J1885; J2250; J2405; J3010

== ENCOUNTER 2019-05-02 11:43 | Outpatient (CLI) | payer OTHER, SELFPAY ==
--- NOTE | 2019-05-02 11:53 | DI.RAD_ITS ---
EXAM: XR STANDING ALIGNMENT CLINICAL HISTORY: 1ST POST OP COMPARISON: XR standing alignment from 01/17/2019 FINDINGS: Bilateral AP views of the lower extremities were obtained using standing alignment protocol. There a re mild degenerative changes of both hips. There is a total knee joint replacement in position on th e right. Moderate degenerative changes of medial tibiofemoral joint noted on the left.
--- NOTE | 2019-05-02 11:57 | DI.RAD_ITS ---
EXAM: XR KNEE RT 1V CLINICAL HISTORY: 1ST POST OP TECHNIQUE: COMPARISON: XR knee RT 2V AP,lat from 01/17/2019 FINDINGS: A single view was obtained and shows a total knee joint replacement in position. No other significan t abnormality seen. IMPRESSION:
== END 2019-05-02 12:03 ==
PROVIDERS: PCP Family Medicine; Visit Provider Student in an Organized Health Care Education/Training Program
DX: Z96.651 Presence of right artificial knee joint (principal); Z47.1 Aftercare following joint replacement surgery; M16.0 Bilateral primary osteoarthritis of hip; M17.12 Unilateral primary osteoarthritis, left knee
CPT/HCPCS: 73560; 77073

== ENCOUNTER 2019-05-03 03:10 | Outpatient (CLI) | payer OTHER, SELFPAY ==
--- NOTE | 2019-05-03 12:52 | DI.US_ITS ---
EXAM: US LOWER EXTREMITY VENOUS RT CLINICAL HISTORY: PAIN ? DVT, S/P RT TKR, Z96.651 TECHNIQUE: Ultrasound performed using standard protocol. COMPARISON: US OR ANESTHESIA from 04/16/2019 FINDINGS: Duplex venous ultrasound was performed according to the usual protocol. The deep veins are freely co mpressible throughout and there is normal flow augmentation with manual calf compression. 2D and Dop pler evaluation are unremarkable. IMPRESSION: No evidence of deep venous thrombosis of the lower extremity
== END 2019-05-03 03:30 ==
PROVIDERS: PCP Family Medicine; Visit Provider Student in an Organized Health Care Education/Training Program
DX: M79.661 Pain in right lower leg (principal); Z96.651 Presence of right artificial knee joint
CPT/HCPCS: 93971

== ENCOUNTER 2019-09-27 03:44 | Outpatient (CLI) | payer OTHER, SELFPAY ==
--- NOTE | 2019-09-27 | DI.MAMMO_ITS ---
EXAM: MG MAMMO SCREENING CLINICAL HISTORY: SCREENING, [facility],Z00.00 TECHNIQUE: Mammograms were interpreted according to the usual protocol including computer analysis w [facility] CAD system, tomosynthesis and C-view imaging. COMPARISON: FINDINGS: Breasts are heterogeneously dense. No dominant mass or clumped microcalcification is identified in e ither breast. The current examination is compared with previous examinations including February 2017 and there has been no gross interval change in appearance in comparison with previous studies. IMPRESSION: No specific evidence of malignancy at this time. Routine screening examinations are suggested at yea rly intervals due to the family history of breast carcinoma. Category: BI-RADS Cat 1 - Negative Breast Density - Category C - Heterogeneously dense
== END 2019-09-27 04:04 ==
PROVIDERS: PCP Family Medicine; Visit Provider Family Medicine
DX: Z12.31 Encounter for screening mammogram for malignant neoplasm of breast (principal); Z00.00 Encounter for general adult medical examination without abnormal findings; Z80.3 Family history of malignant neoplasm of breast
CPT/HCPCS: 77063; 77067

== ENCOUNTER 2020-01-01 10:03 | Outpatient (CLI) | payer MEDICARE, SELFPAY ==
--- NOTE | 2020-01-01 | DI.CT_ITS ---
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 TECHNIQUE: Imaging Protocol: Axial CT angiography was performed with multi-slice acquisition and mu lti-planar and/or 3D reconstructions. CONTRAST MATERIAL: Intravenous: Omnipaque 350 Contrast volume:structured data in ml COMPARISON: CT CT BRAIN CTA from 06/26/2018 FINDINGS: The patient is status post coiling of the previously noted anterior communicating artery aneurysm. A coil is also seen in the left middle cerebral artery aneurysm. The coils create streak artifact. N o new aneurysms are identified. There is no evidence of acute hemorrhage, mass or infarct. No signi ficant vascular stenosis is seen. The ventricles are normal in size. There is no evidence of skull fracture. There is a small mucous retention cyst in left maxillary sinus. The mastoid air cells felecia ear clear. IMPRESSION: Status post anterior communicating artery and left MCA aneurysm coiling. No new aneurysm or signific ant vascular stenosis. RADIATION DOSE DELIVERED: 733.45mGy.cm Total DLP DATA REPOSITORY: All CT scans at this facility are submitted to the National Radiology Data Registry (NRDR) Dose Index Registry (DIR) with the [employer] (ACR). RADIATION OPTIMIZATION: All CT scans at this facility use at least one of these dose optimization te chniques: automated exposure control; mA and/or kV adjustment per patient size (includes targeted exa ms where dose is matched to clinical indication); or iterative reconstruction.
[2020-01-01 18:25] LABS: HCT 46.9 % (36.0-46.0); HGB 14.9 g/dL (11.2-15.7); MCH 30.8 pg (27.0-33.0); MCHC 31.8 % (32.0-36.0); MCV 96.9 fL (80-95); Platelet Count 244 10^3/uL (130-400); RBC 4.84 10^6/uL (3.93-5.22); RDW 12.5 % (11.7-14.6); RDW-SD 44.7 fL; WBC 10.54 10^3/uL (4.4-10.8)
[2020-01-01 18:39] LABS: ALT 31 U/L (14-59); AST 20 U/L (15-37); Albumin 4.1 g/dL (3.4-5.0); Alkaline Phosphatase 95 U/L (46-116); Anion Gap 9.3 mmol/L (3-11); BUN 20 mg/dL (7-18); Bilirubin, Total 0.6 mg/dL (0.2-1.0); CO2 27.7 mmol/L (21.0-32.0); CREATININE 0.82 mg/dL (0.55-1.02); Calcium 9.6 mg/dL (8.5-10.1); Chloride 106 mmol/L (98-107); Glucose 90 mg/dL (74-106); Potassium 4.2 mmol/L (3.5-5.1); Sodium 143 mmol/L (136-145); Total Protein 7.3 g/dL (6.4-8.2)
[2020-01-01] MEDS: Normal Saline - Diluent 50 ML VIAL IV (18:55)
[2020-01-01] MEDS: Omnipaque 350 MG/ML 100 ML BTL IJ (18:56)
--- NOTE | 2020-01-01 19:29 | DI.VRAD_ITS ---
PROCEDURE INFORMATION: Exam: CT Angiography Head Without And With Contrast Exam date and time: 01/01/2020 5:10 PM Age: 64 years old Clinical indication: Pain; Prior surgery; Surgery date: 6+ months; Surgery type: Aneurysm of [place] of [place]-rt anterior communicating artery x2 years ago. ; Patient HX: Headache x 1 week, PT sts hit head about a week and a half ago. TECHNIQUE: Imaging protocol: Computed tomographic angiography of the head without and with intravenous contrast. 3D rendering (Not supervised by radiologist): MIP and/or 3D reconstructed images were created by the technologist. Radiation optimization: All CT scans at this facility use at least one of these dose optimization techniques: automated exposure control; mA and/or kV adjustment per patient size (includes targeted exams where dose is matched to clinical indication); or iterative reconstruction. Contrast material: OMNIPAQUE 350; Contrast volume: 85 ml; Contrast route: INTRAVENOUS (IV); COMPARISON: CT BRAIN CTA 06/26/2018 3:37 PM FINDINGS: ANTERIOR CIRCULATION: Right internal carotid artery: Intracranial segment is patent with no significant stenosis or occlusion. No aneurysm. Right middle cerebral artery: No occlusion or significant stenosis. No aneurysm. Right anterior cerebral artery: No occlusion or significant stenosis. No aneurysm. Left internal carotid artery: Intracranial segment is patent with no significant stenosis. No aneurysm. Left middle cerebral artery: Left MCA aneurysm coil is again noted. 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 POSTERIOR CIRCULATION: Right vertebral artery: No occlusion or significant stenosis. No aneurysm. Left vertebral artery: No occlusion or significant stenosis. No aneurysm. Basilar artery: No occlusion or significant stenosis. No aneurysm. Right posterior cerebral artery: No occlusion or significant stenosis. No aneurysm. Left posterior cerebral artery: No occlusion or significant stenosis. No aneurysm. HEAD: Brain: Age-related involutional changes and chronic microvascular ischemic disease. No evidence for acute transcortical infarct. No mass effect or midline shift. No extra-axial collection. No acute intracranial hemorrhage. Basal cisterns are patent. Cerebral ventricles: Normal. No ventriculomegaly. Bones/joints: Unremarkable. No acute fracture. Paranasal sinuses: Small polyp versus retention cyst within the left maxillary sinus. Mastoid air cells: Visualized mastoids are normal. No mastoid effusion. Soft tissues: Unremarkable. IMPRESSION: 1. Interval coiling of the anterior communicating artery aneurysm. Left MCA aneurysm coil is again noted. 2. No hydrocephalus, acute intracranial hemorrhage, or mass effect. 3. No significant stenosis or aneurysm. Dictated and Authenticated by: Tony Sidhu MD. Ordering:KACEY Mcneal MD
[2020-01-01 19:37] LABS: Hemoglobin A1C 5.9 % (3.8-5.6)
[2020-01-02 04:29] LABS: Vitamin D 25 Total 32.4 ng/ml (30-100)
== END 2020-01-01 10:23 ==
PROVIDERS: PCP Family Medicine; Visit Provider Nurse Practitioner Family
DX: I67.1 Cerebral aneurysm, nonruptured (principal); Z95.828 Presence of other vascular implants and grafts; R42 Dizziness and giddiness; R73.03 Prediabetes; E55.9 Vitamin D deficiency, unspecified
CPT/HCPCS: 70496; 80053; 82306; 85027; 83036; J3490

== ENCOUNTER 2020-01-01 16:25 | Outpatient (REF) | payer MEDICARE, SELFPAY ==
[2020-01-02 17:38] LABS: COVID-19 RT-PCR Result NEGATIVE (Negative)
== END 2020-01-01 16:45 ==
LOC: NCHCN 16:25
PROVIDERS: PCP Family Medicine; Visit Provider Nurse Practitioner Family
DX: I67.1 Cerebral aneurysm, nonruptured (principal); Z20.828 Contact with and (suspected) exposure to other viral communicable diseases
CPT/HCPCS: U0003

== ENCOUNTER 2020-03-12 16:00 | Emergency (ER) | payer MEDICARE, SELFPAY ==
[2020-03-12 16:10] VITALS: BP 172/74; PULSE 66; RESP 16; TEMP 36.7; O2SAT 97
--- NOTE | 2020-03-12 16:30 | DI.CT_ITS ---
EXAM: CT BRAIN NECK CTA CLINICAL HISTORY: headache, prior aneurysm coil, nausea, dizzy. TECHNIQUE: Imaging Protocol: Axial CT angiography was performed with multi-slice acquisition and mu lti-planar and/or 3D reconstructions. CONTRAST MATERIAL: Intravenous: Omnipaque 350 Contrast volume:structured data in ml COMPARISON: CT CT BRAIN CTA from 01/01/2020 FINDINGS: CT angiography of the cervical cranial region was performed according to the usual protocol with intr avenous infusion of 100 cc of Omnipaque 350.. Initial noncontrast scanning of the head is unremarkable except for prior aneurysm clips at the anter ior communicating artery in the left middle cerebral artery. There is no evidence of acute hemorrhag e.. Visualized lung apices are clear. Visualized portions of thoracic aorta and pulmonary arterial circul ation are unremarkable. There is no evidence of a cervical mass or adenopathy. The tracheal laryngeal structures appear intact. There is an approximately 50-70 percent luminal diameter stenosis of the proximal left internal carot id artery calcified plaque at this site. Otherwise the common, internal, and external carotid arteri es are within normal limits in the cervical region with no evidence of aneurysm, stenosis, or dissect ion. The vertebral arteries are unremarkable in appearance in the cervical region with no evidence of aneu rysm, stenosis, or dissection. Intracranial portions of the internal carotid arteries appear normal with no evidence of aneurysm, st enosis, or dissection. Intracranial vertebral arteries appear normal with no evidence of aneurysm, stenosis or dissection. There is mild dilatation of the superior-most aspect of the basilar artery, maximal diameter 3-4 mill imeters, this appears to represent a small aneurysm of the tip of the basilar, no significant interva l change in appearance comparison with examination of December 31. No aneurysm identified in the region of the [id number]. The anterior, middle, and posterior cer ebral arteries and major branches appear intact with no evidence of aneurysm, stenosis, or dissection . No enhancing brain lesion identified. IMPRESSION: No evidence of acute intracranial hemorrhage. Prior aneurysm clips at anterior communicating artery and left MCA. 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 RADIATION DOSE DELIVERED: 1,126.19mGy.cmTotal DLP 1,126.19mGy.cm Total DLP DATA REPOSITORY: All CT scans at this facility are submitted to the National Radiology Data Registry (NRDR) Dose Index Registry (DIR) with the [employer] (ACR). RADIATION OPTIMIZATION: All CT scans at this facility use at least one of these dose optimization te chniques: automated exposure control; mA and/or kV adjustment per patient size (includes targeted exa ms where dose is matched to clinical indication); or iterative reconstruction.
--- NOTE | 2020-03-12 16:38 | W.ED.GENAD ---
Discharge Plan Disposition Patient Disposition: HOME Condition: Stable Discharge Details Clinical Impression: Elevated blood pressure reading, Headache Primary Care Provider: Bela Navas ED Provider: Elieser Kirk Home Meds and New Rx's Prescriptions: Continued aspirin 325 mg tablet 325 mg PO DAILY RF: 0 atorvastatin 40 MG tablet 40 mg PO HS RF: 0 esomeprazole magnesium 40 MG capsule,delayed release(DR/EC) 40 mg PO DAILY RF: 0 metoprolol tartrate 25 MG tablet 25 mg PO BID RF: 0 epinephrine [EpiPen 2-Jorge] 0.3 MG/0.3 ML auto-injector 0.3 mg IJ DAILY PRN PRNQty: 1 RF: 0 acetaminophen 500 mg tablet 1,000 mg PO Q6H PRN PRN (Reason: pain) RF: 0 amoxicillin 500 mg capsule 500 mg PO TID RF: 0 amlodipine 2.5 MG tablet 2.5 mg PO HS RF: 0 Discharge Instructions Instructions: General Headache (ED) Additional Instructions: Monitor your blood pressure daily. . Please follow-up with your primary care physician and neurolic specialist - call tomorrow. Return to the ER immediately for worsening or new concerning symptoms. Referrals: Bela Navas MD [Primary Care Provider] - Discharge Data Discharge Date/Time-TO BE ENTERED AT DEPARTURE: 03/12/20 21:02 Medical Decision Making 64-year-old female with history of cerebral aneurysm status post remote coiling, here with generally not feeling well, headache today, elevated blood pressure. Patient is hypertensive on arrival. Patient did have recent dental extraction. Patient neurologically intact. No signs of infectious process. Headache is moderate but consider leaking intracranial aneurysm. CTA of the head interpreted by radiology: IMPRESSION: 1. No intracranial arterial occlusion or significant stenosis, or evidence of recurrent aneurysm. 2. No acute findings on non-contrast Head CT images. ASPECTS score 10. HEAD: Chronic postoperative changes compatible with prior coiling of anterior communicating artery and anterior left posterior communicating artery aneurysms. No intracranial hemorrhage or extra-axial fluid collection. No evidence of mass effect or midline shift. Del Valle-white matter differentiation is intact. No ventriculomegaly. CTA of the neck interpreted by radiology: IMPRESSION: 1. No occlusion or severe stenosis in the arteries of the neck. 2. Approximately 55% stenosis of the proximal left ICA. Labs reviewed and nondiagnostic. Troponin negative. Screening ECG was reviewed and interpreted by me: Please see report, nondiagnostic. Patient was given Tylenol and she was reassessed. Patient remains neurologically intact and feeling better. Blood pressure improved. Disposition decision was made weighing the risks and benefits of hospitalization versus outpatient treatment, the risk for further decompensation, and the patient's wishes. The patient was stable and requested discharge. Prior to discharge, my usual and customary return precautions were reviewed with her - this included follow-up instructions and reason to return to the emergency department if condition worsens, does not improve as expected, or other new concerns arise. Lab Data Lab results reviewed: Yes I reviewed the patient's lab results. HPI General Mode of arrival: ambulatory. Date/Time Provider Initiated Documentation: 03/12/20 16:10. Limitations to Documentation: no limitations. Information obtained by: patient. HPI Narrative: 64-year-old female with history of hypertension, intracranial aneurysm status post coil embolization x2, here with chief complaint of headache. Patient notes that she had a dental extraction performed a few days ago. Mouth has been healing well but she does continue to have some discomfort post extraction. She states that over the past day she generally has been feeling well. She states that she was sweaty at home and developed headache. Headache is frontal, moderate, gradual onset and persistent since this morning. No focal numbness or weakness. No visual changes. No loss of consciousness. Related Data Home Medications Medication Instructions Recorded Confirmed esomeprazole magnesium 40 mg PO DAILY 04/25/17 03/12/20 atorvastatin 40 mg PO HS tab-cap 06/22/17 03/12/20 metoprolol tartrate 25 mg PO BID 11/05/17 03/12/20 epinephrine [EpiPen 2-Jorge] 0.3 mg IJ DAILY PRN PRN #1 packet 12/15/18 03/12/20 amlodipine 2.5 mg PO HS 04/09/19 03/12/20 aspirin 325 mg tablet 325 mg PO DAILY 04/09/19 03/12/20 acetaminophen 1,000 mg PO Q6H PRN PRN 03/12/20 03/12/20 amoxicillin 500 mg PO TID 03/12/20 03/12/20 Previous Rx's Medication Instructions Recorded epinephrine [EpiPen 2-Jorge] 0.3 mg IJ DAILY PRN PRN #1 packet 12/15/18 Allergies Allergy/AdvReac Type Severity Reaction Status Date / Time venom-honey bee Allergy Severe Anaphylaxsi Verified 03/12/20 16:15 [bee venom (honey bee)] s amitriptyline AdvReac Intermediate Psychosis Verified 03/12/20 16:15 morphine AdvReac Intermediate Psychosis Verified 03/12/20 16:15 oxycodone AdvReac Intermediate Psychosis Verified 03/12/20 16:15 General Stated Complaint: GenMedical MORA: 3 Review of Systems All systems reviewed & are unremarkable except as noted in HPI and below Constitutional Constitutional: Reports body ache(s) (Low back pain) and Denies fever(s) Respiratory Respiratory: Denies cough Gastrointestinal Gastrointestinal: Denies abdominal pain and Denies vomiting [facility] Medical History Abdominal pain Adenomatous colon polyp Alcohol abuse, in remission Barretts esophagus Chest pain Depression GERD (gastroesophageal reflux disease) Hiatal hernia Hyperlipidemia Impaired fasting glucose Left ventricular hypertrophy Migraine headache Tobacco dependence Trochanteric bursitis, right hip Injection: 07/08/2019 Surgical History History of hysterectomy History of knee surgery Right knee arthroscopy x 2 2015; ~2012 Hx of cholecystectomy S/P coil embolization of cerebral aneurysm July 2017 - [facility] [place] October 2018 - [place] Status post total right knee replacement (04/16/19) Social History Smoking/Tobacco Use Status: Current every day Tobacco Type: cigarettes Smoking risk assessment performed?: Yes Alcohol Intake: former Year quit: 1985 Drug use: Never Substance use type: does not use Current gender identity: female Do you feel safe at home: Yes Do you feel safe in your relationship?: Yes Exam Const General: cooperative and no acute distress [facility] Head: normocephalic and atraumatic Mouth: moist mucous membranes Eyes Conjunctivae: normal conjunctivae Sclera: normal sclerae EOM: EOM intact bilaterally Neck Neck: full ROM, trachea midline and supple Resp Auscultation: clear to auscultation bilaterally, no rales, no rhonchi and no wheezes Cardio Jugular venous pressure: no JVD Rate: regular rate and not tachycardic Rhythm: regular rhythm GI Palpation: soft, not firm, no guarding, no masses, not rigid and nontender Skin General skin exam: no rashes or lesions noted Neuro General: patient alert, patient awake, patient oriented x3 and tone normal Extrem General: no edema Psych Appearance: grossly normal Mental Status: mental status grossly normal Speech and Movement: speech and movement normal Course Vital Signs Vital signs: Vital Signs Temperature 36.7 C 03/12/20 16:10 Pulse 66 03/12/20 16:10 Respiratory Rate 16 03/12/20 16:10 Blood Pressure 172/74 H 03/12/20 16:10 Pulse Oximetry 97 03/12/20 16:10 Temperature 36.7 C 03/12/20 16:10 Temperature Source Skin 03/12/20 16:10 Pulse 66 03/12/20 16:10 Respiratory Rate 16 03/12/20 16:10 Respiratory Effort 03/12/20 16:16 Blood Pressure 172/74 H 03/12/20 16:10 Blood Pressure Position Sitting 03/12/20 16:10 Pulse Oximetry 97 03/12/20 16:10 Oxygen Delivery Method Room Air 03/12/20 16:10 Oxygen Flow Rate 0 03/12/20 16:10 Pain Level 7 03/12/20 16:10 Comment hx HTN - takes medication 03/12/20 16:10
--- NOTE | 2020-03-12 17:00 | RT.EKG_ITS ---
APPROVED REPORT Exam: Resting ECG Patient Location: E HR:55 bpm ECG Measurements Heart Rate 55 AXIS GA 142 P 57 QRSd 75 QRS 24 QT 427 T 54 QTc 410 Conclusion Sinus bradycardia...rate< 60 no stemi
[2020-03-12 17:06] LABS: Abs Immature Grans 0.03 10^3/uL (0.0-0.06); Absolute Basophil Count 0.02 10^3/uL (0.0-0.2); Absolute Eosinophil Count 0.14 10^3/uL (0.0-0.7); Absolute Lymphocyte Count 1.89 10^3/uL (1.2-3.4); Absolute Monocyte Count 0.81 10^3/uL (0.1-0.8); Basophils % 0.2; Eosinophils % 1.5; HCT 43.4 % (36.0-46.0); HGB 14.2 g/dL (11.2-15.7); Immature Grans % 0.3; Lymphocytes % 20.8; MCH 31.1 pg (27.0-33.0); MCHC 32.7 % (32.0-36.0); MCV 95.2 fL (80-95); MPV 9.9 fL (8.0-11.0); Monocytes % 8.9; Neutrophils % 68.3; Nucleated RBC 0 %; Platelet Count 212 10^3/uL (130-400); RBC 4.56 10^6/uL (3.93-5.22); RDW 12.9 % (11.7-14.6); RDW-SD 45.5 fL; WBC 9.09 10^3/uL (4.4-10.8)
[2020-03-12 17:10] LABS: Bilirubin Negative (Negative); Blood Negative (Negative); Clarity Clear (Clear); Glucose Negative (Negative); Ketones Negative (Negative); Leukocyte Esterase Negative (Negative); Nitrite Negative (Negative); Specific Gravity 1.025 (1.005-1.025); Urobilinogen 0.2 EU/dL (Up TO 0.2)
[2020-03-12 17:24] LABS: ALT 32 U/L (14-59); AST 22 U/L (15-37); Albumin 3.8 g/dL (3.4-5.0); Alkaline Phosphatase 96 U/L (46-116); Anion Gap 6.1 mmol/L (3-11); BUN 25 mg/dL (7-18); Bilirubin, Total 0.5 mg/dL (0.2-1.0); CO2 28.9 mmol/L (21.0-32.0); Calcium 9.8 mg/dL (8.5-10.1); Chloride 105 mmol/L (98-107); Glucose 96 mg/dL (74-106); Potassium 4.1 mmol/L (3.5-5.1); Sodium 140 mmol/L (136-145); Total Protein 7.1 g/dL (6.4-8.2)
[2020-03-12 17:28] LABS: Troponin I < 0.05 ng/mL (<0.06)
[2020-03-12] MEDS: Omnipaque 350 MG/ML 100 ML BTL IJ (17:41)
[2020-03-12] MEDS: Normal Saline - Diluent 50 ML VIAL IV (17:41)
--- NOTE | 2020-03-12 18:16 | DI.VRAD_ITS ---
PROCEDURE INFORMATION: Exam: CT Angiography Head Without And With Contrast Exam date and time: 03/12/2020 4:38 PM Age: 64 years old Clinical indication: Headache; Prior surgery TECHNIQUE: Imaging protocol: Computed tomographic angiography of the head without and with intravenous contrast. 3D rendering (Not supervised by radiologist): MIP and/or 3D reconstructed images were created by the technologist. COMPARISON: CT BRAIN CTA 01/01/2020 6:56 PM FINDINGS: ANTERIOR CIRCULATION: Right internal carotid artery: Intracranial segment is patent with no evidence of hemodynamically significant stenosis. No aneurysm. Right middle cerebral artery: No occlusion or significant stenosis. No aneurysm. Right anterior cerebral artery: No occlusion or significant stenosis. No aneurysm. Anterior communicating artery: Left internal carotid artery: Intracranial segment is patent with no evidence of hemodynamically significant stenosis. No aneurysm. Left middle cerebral artery: No occlusion or significant stenosis. No aneurysm. Left anterior cerebral artery: No occlusion or significant stenosis. No aneurysm. POSTERIOR CIRCULATION: Right vertebral artery: No occlusion or significant stenosis. No aneurysm. Left vertebral artery: No occlusion or significant stenosis. No aneurysm. Basilar artery: No occlusion or significant stenosis. No aneurysm. Right posterior cerebral artery: No occlusion or significant stenosis. No aneurysm. Left posterior cerebral artery: No occlusion or significant stenosis. No aneurysm. HEAD: Chronic postoperative changes compatible with prior coiling of anterior communicating artery and anterior left posterior communicating artery aneurysms. No intracranial hemorrhage or extra-axial fluid collection. No evidence of mass effect or midline shift. Del Valle-white matter differentiation is intact. No ventriculomegaly. IMPRESSION: 1. No intracranial arterial occlusion or significant stenosis, or evidence of recurrent aneurysm. 2. No acute findings on non-contrast Head CT images. ASPECTS score 10. PROCEDURE INFORMATION: Exam: CT Angiography Neck With Contrast Exam date and time: 03/12/2020 4:38 PM Age: 64 years old Clinical indication: Headache; Prior surgery TECHNIQUE: Imaging protocol: Computed tomography angiography of the neck with intravenous contrast. 3D rendering (Not supervised by radiologist): MIP and/or 3D reconstructed images were created by the technologist. COMPARISON: CT BRAIN CTA 01/01/2020 6:56 PM FINDINGS: Right common carotid artery: No significant stenosis. No dissection or occlusion. Right internal carotid artery: Atherosclerotic plaques involving the proximal extracranial right internal carotid artery without evidence of hemodynamically significant stenosis (0% stenosis by NASCET criteria). Right external carotid artery: No occlusion or significant stenosis. Right vertebral artery: No significant stenosis. No dissection or occlusion. Left common carotid artery: No significant stenosis. No dissection or occlusion. Left internal carotid artery: Atherosclerotic plaques within the proximal extracranial left internal carotid artery cause approximately 55 % stenosis by NASCET criteria. Remaining portions of the extracranial left ICA are patent. Left external carotid artery: No occlusion or significant stenosis. Left vertebral artery: No significant stenosis. No dissection or occlusion. Bones/joints: No acute fracture. Soft tissues: Unremarkable. IMPRESSION: 1. No occlusion or severe stenosis in the arteries of the neck. 2. Approximately 55% stenosis of the proximal left ICA. REFERENCES: NASCET CRITERIA. The degree of internal carotid artery stenosis is based on NASCET criteria. Normal is no stenosis. Mild is less than 50% stenosis. Moderate is 50-69% stenosis. Severe is 70% to 99% stenosis. Total occlusion is no detectable patent lumen. Dictated and Authenticated by: Franco Aguilar MD. Ordering:THEO Mon MD
[2020-03-12 18:25] VITALS: RESP 18
--- NOTE | 2020-03-12 19:15 | RT.EKG_ITS ---
APPROVED REPORT Exam: Resting ECG Patient Location: E HR:60 bpm ECG Measurements Heart Rate 60 AXIS NC 152 P 70 QRSd 80 QRS 40 QT 422 T 61 QTc 421 Conclusion Sinus rhythm...normal P axis, V-rate 60- 99
[2020-03-12 19:40] VITALS: BP 123/61; PULSE 59; RESP 16; O2SAT 96
[2020-03-12] MEDS: Acetaminophen 325 MG TAB 650 MG PO (20:05)
[2020-03-12 20:06] LABS: Troponin I < 0.05 ng/mL (<0.06)
[2020-03-12 20:40] VITALS: BP 144/60; PULSE 61; RESP 14; TEMP 36.5; O2SAT 97
== END 2020-03-12 21:02 | disposition home or self-care (01) ==
PROVIDERS: Emergency Provider Student in an Organized Health Care Education/Training Program; PCP Family Medicine
DX: R03.0 Elevated blood-pressure reading, without diagnosis of hypertension (principal); R51.9 Headache, unspecified; Z98.818 Other dental procedure status; Z86.79 Personal history of other diseases of the circulatory system
CPT/HCPCS: 70496; 70498; 80053; 93005; 99285; 81003; 84484; 85025; 93010; 99284; J3490

== ENCOUNTER 2020-03-26 01:25 | Outpatient (CLI) | payer MEDICARE, SELFPAY ==
--- NOTE | 2020-03-26 | DI.DEXA_ITS ---
EXAM: XR DEXA BONE DENSITY W/WO JOANNA CLINICAL HISTORY: SCREENING FOR OSTEOPOROSIS,Z13.820,OSTEOPOROSIS, M81.0 TECHNIQUE: COMPARISON: No exams were available for comparison FINDINGS: Lateral Spine Image: Unremarkable. No compression deformities identified. Left hip: Total T-Score: -0.7 Total Z-Score: 0.6 T- and Z-scores: Within normal limits. Lumbar Spine: Total T-Score: 0.6 Total Z-Score: 2.5 T- and Z-scores: Within normal limits. IMPRESSION: No evidence of osteoporosis.
== END 2020-03-26 01:45 ==
PROVIDERS: PCP Family Medicine; Visit Provider Family Medicine
DX: M81.0 Age-related osteoporosis without current pathological fracture
CPT/HCPCS: 77080

== ENCOUNTER 2020-04-20 13:05 | Outpatient (CLI) | payer MEDICARE, SELFPAY ==
--- NOTE | 2020-04-20 13:00 | DI.RAD_ITS ---
EXAM: XR KNEE RT 2V AP,LAT CLINICAL HISTORY: annual f/u. TECHNIQUE: 2D digital imaging was performed. COMPARISON: CR XR KNEE RT 1V from 05/02/2019 FINDINGS: Component of the prosthesis remain stable position alignment. No fracture or loosening. No radiogra phic evidence of osteomyelitis. IMPRESSION: Satisfactory appearance. DATA REPOSITORY: RADIATION DOSE DELIVERED:
== END 2020-04-20 13:25 ==
PROVIDERS: PCP Family Medicine; Referring Provider Family Medicine; Visit Provider Student in an Organized Health Care Education/Training Program
DX: Z96.651 Presence of right artificial knee joint; Z47.1 Aftercare following joint replacement surgery
CPT/HCPCS: 99213; 73560

== ENCOUNTER 2020-08-01 03:13 | Emergency (ER) | payer MEDICARE, SELFPAY ==
[2020-08-01 03:26] VITALS: BP 145/73; PULSE 57; RESP 16; TEMP 36.7; O2SAT 97
--- NOTE | 2020-08-01 03:35 | W.ED.GENAD ---
Discharge Plan Disposition Patient Disposition: HOME Condition: Stable Discharge Details Clinical Impression: Fall down stairs, Hematoma of frontal scalp, Contusion of hand, right, Neck strain Primary Care Provider: Bela Navas ED Provider: Elieser Kirk Home Meds and New Rx's Prescriptions: Continued aspirin 325 mg tablet 325 mg PO DAILY RF: 0 atorvastatin 40 MG tablet 40 mg PO HS RF: 0 esomeprazole magnesium 40 MG capsule,delayed release(DR/EC) 40 mg PO DAILY RF: 0 metoprolol tartrate 25 MG tablet 25 mg PO BID RF: 0 epinephrine [EpiPen 2-Jorge] 0.3 MG/0.3 ML auto-injector 0.3 mg IJ DAILY PRN PRNQty: 1 RF: 0 acetaminophen 500 mg tablet 1,000 mg PO Q6H PRN PRN (Reason: pain) RF: 0 amlodipine 2.5 MG tablet 2.5 mg PO HS RF: 0 Discharge Instructions Instructions: Cervical Strain (ED), Contusion in Adults (ED), Fall Prevention (ED), Hematoma (ED) Additional Instructions: Please take acetaminophen (tylenol) - 650mg every 6 hours by mouth as needed for pain. Please contact your primary care physician to arrange follow-up. Return to the ER for any worsening or new concerning symptoms. Referrals: eBla Navas MD [Primary Care Provider] - Medical Decision Making 3:40 AM??65-year-old female presents with an hour and a half after stumbled and fell down 8 stairs hitting her head, has persistent headache, dizziness and nausea with left frontal hematoma. Lungs clear to auscultation with no chest pain. Abdominal exam benign. Patient also with some left lateral cervical tenderness, no midline tenderness or deformity, left low back tenderness and discomfort, and tenderness right second MCP. Plan to obtain CT of the head to assess for acute traumatic hemorrhage, CT of the cervical spine to assess for fracture, x-ray of the hand to assess for fracture, and screening pelvic x-ray. C-collar was placed to protect her neck while awaiting imaging. 5:05 AM --CT the head was interpreted by radiology:IMPRESSION: 1. Minimal left lateral forehead soft tissue swelling. 2. No acute intracranial finding. CT of the cervical spine was interpreted by radiology: No acute process X-ray of the pelvis was interpreted by radiology: No fracture X-ray of the right hand was interpreted by radiology: No fracture Patient was reassessed and has remained stable here. C-spine was cleared and collar removed. Patient was provided Tylenol 650 mg p.o. for discomfort. All results were discussed with the patient. Usual customary discharge instructions were reviewed with the patient. I did provide specific instructions on fall prevention. HPI General Mode of arrival: ambulatory. Date/Time Provider Initiated Documentation: 08/01/20 03:22. Limitations to Documentation: no limitations. Information obtained by: patient. HPI Narrative: 65-year-old female presents with chief complaint of headache. Patient notes she got up to go the bathroom and she tumbled down about 8 steps. She hit her head during the fall. She has moderate headache with associated dizziness and nausea. Fall happened about an hour and a half ago when symptoms have persisted. She notes that she generally feels achy all over. She has some associated pain in her left lower back. No abdominal pain. No chest pain or shortness of breath. Patient is not sure if she lost consciousness during the fall. Related Data Home Medications Medication Instructions Recorded Confirmed esomeprazole magnesium 40 mg PO DAILY 04/25/17 08/01/20 atorvastatin 40 mg PO HS tab-cap 06/22/17 08/01/20 metoprolol tartrate 25 mg PO BID 11/05/17 08/01/20 epinephrine [EpiPen 2-Jorge] 0.3 mg IJ DAILY PRN PRN #1 packet 12/15/18 08/01/20 amlodipine 2.5 mg PO HS 04/09/19 08/01/20 aspirin 325 mg tablet 325 mg PO DAILY 04/09/19 08/01/20 acetaminophen 1,000 mg PO Q6H PRN PRN 03/12/20 08/01/20 Previous Rx's Medication Instructions Recorded epinephrine [EpiPen 2-Jorge] 0.3 mg IJ DAILY PRN PRN #1 packet 12/15/18 Allergies Allergy/AdvReac Type Severity Reaction Status Date / Time venom-honey bee Allergy Severe Anaphylaxsi Verified 06/24/20 13:57 [bee venom (honey bee)] s amitriptyline AdvReac Intermediate Psychosis Verified 06/24/20 13:57 morphine AdvReac Intermediate Psychosis Verified 06/24/20 13:57 oxycodone AdvReac Intermediate Psychosis Verified 06/24/20 13:57 General MORA: 3 Review of Systems All systems reviewed & are unremarkable except as noted in HPI and below Cardiovascular Cardiovascular: Denies chest pain Neurologic Neurologic: Reports as per HPI [facility] Medical History Abdominal pain Adenomatous colon polyp Alcohol abuse, in remission Barretts esophagus Chest pain Depression GERD (gastroesophageal reflux disease) Hiatal hernia Hyperlipidemia Impaired fasting glucose Left ventricular hypertrophy Migraine headache Tobacco dependence Trochanteric bursitis, right hip Injection: 07/08/2019 Surgical History History of hysterectomy History of knee surgery Right knee arthroscopy x 2 2015; ~2012 Hx of cholecystectomy S/P coil embolization of cerebral aneurysm July 2017 - [facility] [place] October 2018 - [employer] Status post total right knee replacement (04/16/19) Social History Smoking/Tobacco Use Status: Current every day Tobacco Type: cigarettes Smoking risk assessment performed?: Yes Alcohol Intake: former Year quit: 1985 Drug use: Never Substance use type: does not use Current gender identity: female Do you feel safe at home: Yes Do you feel safe in your relationship?: Yes Exam Const General: cooperative and no acute distress HENMT Head: hematoma left frontal, no lacerations, no raccoon eyes and No periorbital ecchymosis Ears: external ears normal and TM's normal bilaterally General nose exam: external nose normal Face and sinus: normal facial exam Mouth: moist mucous membranes Eyes Pupils: PERRL EOM: EOM intact bilaterally Neck Neck: trachea midline and supple Resp Auscultation: clear to auscultation bilaterally, no rales, no rhonchi and no wheezes Cardio Rate: regular rate and not tachycardic Rhythm: regular rhythm GI Palpation: soft, not firm, no guarding, no masses, not rigid and nontender Back/Spine/Pelvis Cervical Spine: cervical muscular tenderness (Left posterior), pain with cervical ROM (Left posterior neck), No cervical spinal tenderness and No step off deformity Thoracic/Lumbar Spine: No thoracic spinal tenderness and No lumbar spinal tenderness Pelvis: no unilateral elevation of iliac crest Other: Mild tenderness left lower back over illium, no bruising or deformity Skin General skin exam: no rashes or lesions noted Neuro General: patient alert, patient awake, patient oriented x3 and tone normal Extrem General: no edema Right upper extremity: wrist Details: normal to inspection and hand Details: neurosensory exam normal and tenderness Location: of the 2nd digit Location: at the MCP joint Psych Appearance: grossly normal Mental Status: mental status grossly normal Speech and Movement: speech and movement normal
--- NOTE | 2020-08-01 04:03 | DI.RAD_ITS ---
EXAM: XR PELVIS AP CLINICAL HISTORY: fall down stairs, pain left posterior. TECHNIQUE: 2D digital imaging was performed. COMPARISON: CR PELVIS AP from 10/05/2016 FINDINGS: There is no evidence of pelvic nor hip fractures. Sacroiliac joints and symphysis pubis appear unrem arkable. No obvious degenerative changes in the hips. IMPRESSION: No fracture evident DATA REPOSITORY: RADIATION DOSE DELIVERED:
--- NOTE | 2020-08-01 04:03 | DI.RAD_ITS ---
EXAM: XR HAND RT COMPLETE CLINICAL HISTORY: fall down stairs, pain 2nd mcp. TECHNIQUE: 2D digital imaging was performed. COMPARISON: CR LEFT HAND COMPLETE from 01/08/2013 FINDINGS: There is no evidence of acute fracture or dislocation. 1 millimeter calcific density seen off the me dial aspect of the proximal interphalangeal joint of the middle-3rd finger. This apparently not the area of tenderness. Incidental finding. No other significant focal findings. No radiopaque foreign body. IMPRESSION: DATA REPOSITORY: RADIATION DOSE DELIVERED:
--- NOTE | 2020-08-01 04:12 | DI.CT_ITS ---
EXAM: CT HEAD CERVICAL SPINE WO CLINICAL HISTORY: fall down stairs, BUCK, left frontal hematoma, dizzy. TECHNIQUE: Imaging Protocol: Axial computed tomography images with coronal and sagittal reformatted images were created and reviewed COMPARISON: CT CT BRAIN NECK CTA from 03/12/2020 FINDINGS: BRAIN: There is a left lateral forehead hematoma. No subjacent fracture. There are no skull fractures nor fluid in the visualized paranasal sinuses. Small post inflammatory retention cysts seen in the posterior aspect of the left maxillary sinus, not associated with fluid l evel. There are again noted aneurysm clips at the level of the anterior communicating artery and left MCA, unchanged position from the prior CT scan of 03/12/2020 There is no evidence of intracranial hemorrhage, mass effect, or shift of midline structures. There are no extra-axial fluid collections. The ventricles are not enlarged or shifted and there is no blo od within the ventricular system nor within the basal cisterns. CERVICAL SPINE: There is no evidence of fracture nor listhesis. No significant prevertebral soft tissue swelling. T here is chronic degenerative disc space narrowing at C5-6 and C6-7 levels. Also bilateral Luschka jaren int osteophytes at C5-6 and C6-7 levels, larger at C5-6. There are degenerative changes in the facet joints but no facet malalignment evident. No significant osseous lesions evident. IMPRESSION: No acute intracranial findings on this noninfused CT scan of the brain.Two aneurysm clips again noted which are not changed position from prior study listed above. No evidence of cervical spine fracture, malalignment, nor acute compromise of the cervical spinal can al. Multilevel chronic degenerative disc disease and degenerative facet joint arthropathy is noted. RADIATION DOSE DELIVERED: 1,406.28mGy.cm Total DLP DATA REPOSITORY: All CT scans at this facility are submitted to the National Radiology Data Registry (NRDR) Dose Index Registry (DIR) with the [employer] ([employer]). RADIATION OPTIMIZATION: All CT scans at this facility use at least one of these dose optimization te chniques: automated exposure control; mA and/or kV adjustment per patient size (includes targeted exa ms where dose is matched to clinical indication); or iterative reconstruction.
--- NOTE | 2020-08-01 04:31 | DI.VRAD_ITS ---
PROCEDURE INFORMATION: Exam: XR Pelvis Exam date and time: 08/01/2020 4:03 AM Age: 65 years old Clinical indication: Injury or trauma; Blunt trauma (contusions or hematomas); Bilateral; Pelvic region; Injury date: 08/01/20; Injury details: Fall down stairs, pain, left posterior TECHNIQUE: Imaging protocol: XR pelvis. Views: 1 or 2 view. COMPARISON: CT ABD PELVIS WITH CONTRAST 05/01/2017 10:10 AM FINDINGS: Bones/joints: Unremarkable. No acute fracture. Soft tissues: Unremarkable. IMPRESSION: No acute findings. Dictated and Authenticated by: Gerard Bernard MD. Ordering:THEO Mon MD
--- NOTE | 2020-08-01 04:33 | DI.VRAD_ITS ---
PROCEDURE INFORMATION: Exam: XR Right Hand Exam date and time: 08/01/2020 4:03 AM Age: 65 years old Clinical indication: Injury or trauma; Blunt trauma (contusions or hematomas); Hand; Right; Injury date: 08/01/20; Injury details: Fall down stairs, pain 2nd mcp TECHNIQUE: Imaging protocol: XR Right hand. Views: 3 or more views. COMPARISON: No relevant prior studies available. FINDINGS: Bones/joints: No acute fracture. Soft tissues: Normal. IMPRESSION: No acute findings. Dictated and Authenticated by: Gerard Bernard MD. Ordering:THEO Mon MD
--- NOTE | 2020-08-01 04:34 | DI.VRAD_ITS ---
PROCEDURE INFORMATION: Exam: CT Head Without Contrast Exam date and time: 08/01/2020 4:12 AM Age: 65 years old Clinical indication: Injury or trauma; Blunt trauma (contusions or hematomas); Consciousness not specified; Injury date: 08/01/20; Injury details: Fall down stairs, BUCK, left frontal hematoma, dizzy. HX aneurysm x2 a couple years ago TECHNIQUE: Imaging protocol: Computed tomography of the head without contrast. Radiation optimization: All CT scans at this facility use at least one of these dose optimization techniques: automated exposure control; mA and/or kV adjustment per patient size (includes targeted exams where dose is matched to clinical indication); or iterative reconstruction. COMPARISON: CT BRAIN NECK CTA 03/12/2020 5:42 PM FINDINGS: Brain: Normal. No hemorrhage. Unremarkable white matter. No mass effect. Cerebral ventricles: No ventriculomegaly. Bones/joints: Unremarkable. No acute fracture. Paranasal sinuses: Visualized sinuses are unremarkable. No fluid levels. Mastoid air cells: Visualized mastoid air cells are well aerated. Soft tissues: Minimal left lateral forehead soft tissue swelling. IMPRESSION: 1. Minimal left lateral forehead soft tissue swelling. 2. No acute intracranial finding. PROCEDURE INFORMATION: Exam: CT Cervical Spine Without Contrast Exam date and time: 08/01/2020 4:12 AM Age: 65 years old Clinical indication: Injury or trauma; Blunt trauma (contusions or hematomas); Consciousness not specified; Injury date: 08/01/20; Injury details: Fall down stairs, BUCK, left frontal hematoma, dizzy. HX aneurysm x2 a couple years ago TECHNIQUE: Imaging protocol: Computed tomography images of the cervical spine without contrast. Radiation optimization: All CT scans at this facility use at least one of these dose optimization techniques: automated exposure control; mA and/or kV adjustment per patient size (includes targeted exams where dose is matched to clinical indication); or iterative reconstruction. COMPARISON: CT BRAIN NECK CTA 03/12/2020 5:42 PM FINDINGS: Vertebrae: No acute fracture. Normal alignment. Multilevel degenerative disk disease and facet arthropathy with neuroforaminal and canal stenosis.. Soft tissues: Unremarkable. Lungs: Lung apices are normal. IMPRESSION: No acute findings. Dictated and Authenticated by: Gerard Bernard MD. Ordering:THEO Mon MD
--- NOTE | 2020-08-01 04:55 | NUR.NOTE ---
Nursing Note: C-Collar removed by Dr. Kirk.
[2020-08-01] MEDS: Acetaminophen 325 MG TAB 650 MG PO (05:03)
== END 2020-08-01 05:20 | disposition home or self-care (01) ==
PROVIDERS: Emergency Provider Student in an Organized Health Care Education/Training Program; PCP Family Medicine
DX: S00.03XA Contusion of scalp, initial encounter (principal); S60.221A Contusion of right hand, initial encounter; S16.1XXA Strain of muscle, fascia and tendon at neck level, initial encounter; R51.9 Headache, unspecified; M54.5 Low back pain; W10.8XXA Fall (on) (from) other stairs and steps, initial encounter
CPT/HCPCS: 99284; 70450; 72125; 72170; 73130; 99285

== ENCOUNTER 2020-11-13 13:54 | Outpatient (REF) | payer MEDICARE, SELFPAY ==
[2020-11-13 20:58] LABS: Anion Gap 9.2 mmol/L (3-11); BUN 16 mg/dL (7-18); CO2 27.8 mmol/L (21.0-32.0); Calcium 9.7 mg/dL (8.5-10.1); Chloride 105 mmol/L (98-107); Glucose 118 mg/dL (74-106); Potassium 4.6 mmol/L (3.5-5.1); Sodium 142 mmol/L (136-145)
[2020-11-14 01:18] LABS: COVID-19 RT-PCR UVMMC Result Negative (Negative)
== END 2020-11-13 13:55 | disposition home or self-care (01) ==
LOC: NCHCN 13:54
PROVIDERS: PCP Family Medicine; Visit Provider Physician Assistant Medical
DX: J06.9 Acute upper respiratory infection, unspecified; Z20.822 Contact with and (suspected) exposure to COVID-19
CPT/HCPCS: 80048; U0003; U0005; 87086

== ENCOUNTER 2020-11-20 10:58 | Outpatient (CLI) | payer MEDICARE, SELFPAY ==
--- NOTE | 2020-11-20 10:30 | DI.RAD_ITS ---
Exam(s) XR SHOULDER LT COMPLETE 2+V EXAM: XR SHOULDER LT COMPLETE 2+V CLINICAL HISTORY: L shoulder injury. TECHNIQUE: 2D digital imaging was performed. COMPARISON: No exams were available for comparison FINDINGS: BONES: No acute fracture is present. No bony destructive lesion is seen. JOINTS: No dislocation present. Mild spurring AC joint and glenoid. Glenohumeral joint space well m aintained. SOFT TISSUE: Normal. IMPRESSION: Mild degenerative changes. DATA REPOSITORY: RADIATION DOSE DELIVERED:
== END 2020-11-20 10:59 | disposition home or self-care (01) ==
LOC: DIORS 10:58
PROVIDERS: PCP Family Medicine; Referring Provider Family Medicine; Visit Provider Student in an Organized Health Care Education/Training Program
DX: M75.82 Other shoulder lesions, left shoulder (principal); S49.92XA Unspecified injury of left shoulder and upper arm, initial encounter; M54.5 Low back pain; W10.8XXA Fall (on) (from) other stairs and steps, initial encounter
CPT/HCPCS: 20610; 99213; 73030; J1040

== ENCOUNTER → 2021-01-05 12:53 | Outpatient (BNVA) | payer MEDICARE, SELFPAY | PROVIDERS: PCP Family Medicine; Referring Provider Family Medicine; Visit Provider Surgery | DX: K22.70 Barrett's esophagus without dysplasia (principal); Z12.11 Encounter for screening for malignant neoplasm of colon; Z86.010 Personal history of colon polyps | CPT/HCPCS: 99202; 99213 ==

== ENCOUNTER 2021-01-22 03:18 | Outpatient (CLI) | payer MEDICARE, SELFPAY | END 2021-01-22 03:19 | disposition home or self-care (01) | LOC: LBO 03:19 | PROVIDERS: PCP Family Medicine; Visit Provider Surgery | DX: Z20.822 Contact with and (suspected) exposure to COVID-19 (principal) | CPT/HCPCS: 87635 ==

== ENCOUNTER 2021-01-25 08:25 | Day surgery (SDC) | payer MEDICARE, SELFPAY ==
[2021-01-22 11:42] LABS: Source Nasal/Nares
[2021-01-22 15:14] LABS: COVID-19 PCR Negative (Negative)
--- NOTE | 2021-01-25 06:44 | ENDO_ITS ---
Date of service: 01/25/21 Time of Service: 09:44 Endoscopy Report DATE OF PROCEDURE: 01/25/21 PRE-OP DIAGNOSIS: Hx of polyps and Leo's POST-OP DIAGNOSIS: same (polyps, hiatal hernia and gastritis) PROCEDURE: 1. EGD with biopsies 2. Colonoscopy with polypectomy SURGEON: Abida Alvarado ANESTHESIA TYPE: General:No Airway (Tad Hadley, EDGAR) ESTIMATED BLOOD LOSS: 5 PATHOLOGY: other (duodenal bx, antrum bx, GE junction bx, ascending colon polyps x2) COMPLICATIONS: None DISPOSITION: same day INDICATIONS: Ms Lo is a pleasant 65-year-old female who is here today to discuss a screening colonoscopy. Her last colonoscopy was in 2014 at [facility] at which point she was noted to have a tubular adenoma. She has had some constipation over the last 3 to 4 months as well as some unintentional weight loss. She denies any melena or hematochezia or family history of colon cancer. We discussed the colonoscopy in detail as well as its risks and complications. Risks, benefits and complications have been reviewed. Complications include but are not limited to bleeding, pain, perforation, missed small lesion/polyp, sore throat, aspiration and adverse reaction to the medications. Questions were entertained and answered to their satisfaction and they wished to proceed. No guarantees were given or implied. Colonoscopy under sedation (2) Leo's esophagus determined by endoscopy: Ms Lo is a 65-year-old female with a history of Leo's esophagitis. She has recently had to change her reflux medication from Nexium 40 mg daily to [id number] omeprazole 20 mg daily. This unfortunately has not controlled her reflux and she has had episodes of vomiting acid. She is also now having some dysphagia issues. I will order some 40 mg of omeprazole daily hopefully Medicare will pay for this. If not we will do a preop. In the meantime she can take to the [id number] ones. Because of her history of Leo's she is due for another upper endoscopy. We reviewed the procedure as well as its risks and benefits. Risks, benefits and complications have been reviewed. Complications include but are not limited to bleeding, pain, perforation, sore throat, aspiration, and adverse reaction to the medications. Questions were entertained and answered to their satisfaction and they wished to proceed. No guarantees were given or implied. Proceed with EGD under sedation PREP: Miralax/Dulcolax PROCEDURE START TIME: 09:44 PROCEDURE END TIME: 10:12 COLONOSCOPY RETRACTION TIME: 10 minutes FINDINGS: Inflammation of the small bowel and stomach, Hiatal hernia and Leo's 2 sessile polyps PROCEDURE DESCRIPTION: After informed consent was obtained the patient was take to the procedure room and placed in a supine position. Monitors were applied and a time out was done. The patients name, date of , procedure type, allergies to medications and metal in their body was reviewed. A bite block was placed and the patient was sedated. Once sedated and comfortable the gastroscope was advanced through the oropharynx which was grossly normal into the esophagus. The proximal and mid- esophagus were normal. In the distal esophagus there was inflammation noted. The scope was advanced into the stomach and through the pylorus into the 3rd portion of the duodenum. The 2nd and 3rd portion of the duodenum was noted to be normal. There was mild inflammation in the 1st portion of the duodenum and biopsies were done. The scope was retracted back into the stomach. There was mild inflammation noted in the antrum. Biopsies were done to rule out H. pylori. There were no ulcers. The scope was retro-flexed. The cardia and fundus were noted to be normal. There was a 5 cm hiatal hernia noted. The scope was retracted back into the esophagus and biopsies were done of the GE junction to rule out Leo's. The Z line was regular. The GE junction was at 30 cm. While the patient was still sedated they were placed in a left decubitous position. A rectal exam was done. External exam was normal. Internal exam revealed a decreased sphincter tone and no palpable masses. The scope was then introduced and retro-flexed. No internal hemorrhoids, masses or polyps were identified on retroflexion. The scope was then advanced to the cecum without difficulty. The ileocecal valve and appendiceal orifice were identified. The prep was good. The scope was then slowly retracted over 10 minutes back into the rectum. Polyps were removed with hot snare in the ascending colon and with cold forceps in the ascending colon. There was no diverticulosis noted. The scope was removed and the patient was woken up and taken back to Same day surgery in stable condition. The patient tolerated the procedure well and there were no immediate complications. Follow up: 3-5 years
--- NOTE | 2021-01-25 06:45 | W.PM.DSUDISC ---
Discharge Plan Disposition Patient Disposition: HOME Condition: Good Discharge Details Reason For Visit: Gilbert/EGD Attending Provider: Abida Alvarado Primary Care Provider: Bela Navas Home Meds and New Rx's Prescriptions: Continued aspirin 325 mg tablet 325 mg PO DAILY RF: 0 omeprazole 40 mg capsule,delayed release(DR/EC) 40 mg PO DAILY Qty: 30 RF: 0 atorvastatin 40 MG tablet 40 mg PO HS RF: 0 metoprolol tartrate 25 MG tablet 25 mg PO BID RF: 0 epinephrine [EpiPen 2-Jorge] 0.3 MG/0.3 ML auto-injector 0.3 mg IJ DAILY PRN PRNQty: 1 RF: 0 acetaminophen 500 mg tablet 1,000 mg PO Q6H PRN PRN (Reason: pain) RF: 0 amlodipine 2.5 MG tablet 2.5 mg PO HS RF: 0 Discontinued polyethylene glycol 3350 17 gram powder in packet 255 g PO DAILY Qty: 15 RF: 0 bisacodyl [Dulcolax (bisacodyl)] 5 mg tablet,delayed release (DR/EC) 5 mg PO ONCE Qty: 4 RF: 0 Discharge Instructions Instructions: Colorectal Polyps (DC), Diet for Stomach Ulcers and Gastritis (ED), Gastritis (DC), Hiatal Hernia (DC) Additional Instructions: Findings: Small Hiatal Hernia Inflammation of the stomach and esophagus Colorectal polyps Follow up: 3-5 years Please call if you develop: fevers >101.5 Nausea or Vomiting Abdominal pain that is not transient Rectal bleeding that is more then a tbsp A hard abdomen and inability to pass gas DAY SURGERY UNIT POST ENDOSCOPY INSTRUCTIONS Instructions for everyone who is given Anesthesia: For your safety, please do the following for the next 24 Hours: a. Do not drive or operate dangerous equipment b. Do not drink alcohol beverages or use any recreational drugs for the first 24 hours or while taking pain medications. The medications in your body may have a reaction that can be dangerous. c. Do not make any important decisions or sign any important papers 1. Generally there are no restrictions on your activity after a day or so has gone by, but you may feel a bit fatigued for a few days. 2. After you arrive home you may have a light meal and return to a normal diet as you can tolerate it without feeling sick to your stomach. 3. After surgery, you may feel pain or discomfort. This should be only transient, but if it persists please contact your doctor. 4. If there are any questions regarding the findings of your procedure, please feel free to contact your doctor. 6. If you are unable to contact your doctor with a problem, contact the hospital at [phone]. 7. Continue all your regular medications unless directed otherwise. I understand the above instructions and have no questions. Signature of Patient or Responsible Adult Escort Date/Time Name of Responsible Adult Escort Signature of Nurse Date/Time Activity:: Activity as Tolerated Diet:: As Tolerated Discharge Orders Discharge Orders: Discharge Order (Routine); Ordered 01/25/21 Ordered By: Abida Alvarado
[2021-01-25 08:40] VITALS: BP 129/80; PULSE 82; RESP 16; TEMP 36.6; O2SAT 98
--- NOTE | 2021-01-25 08:57 | W.ANESPRE ---
General Info Date of Service Date Performed: 01/25/21 Height: 5 ft 2 in Weight: 58.2 kg Body Mass Index (BMI): 23.4 Surgical Procedure: Operation Date: 01/25/21 09:50 Proposed Procedures Side Surgeon p Colonoscopy/Gastroscopy Abida Alvarado MD Meds Allergies and Home Medications Allergies Allergy/AdvReac Type Severity Reaction Status Date / Time venom-honey bee Allergy Severe Anaphylaxsi Verified 01/25/21 08:45 [bee venom (honey bee)] s losartan Allergy Intermediate facial Verified 01/25/21 08:45 swelling isosorbide AdvReac Severe headaches Verified 01/25/21 08:45 amitriptyline AdvReac Intermediate Psychosis Verified 01/25/21 08:45 morphine AdvReac Intermediate Psychosis Verified 01/25/21 08:45 oxycodone AdvReac Intermediate Psychosis Verified 01/25/21 08:45 Home Medication Medication Instructions Recorded atorvastatin 40 mg PO HS tab-cap 06/22/17 metoprolol tartrate 25 mg PO BID 11/05/17 epinephrine [EpiPen 2-Jorge] 0.3 mg IJ DAILY PRN PRN #1 packet 12/15/18 amlodipine 2.5 mg PO HS 04/09/19 aspirin 325 mg tablet 325 mg PO DAILY 04/09/19 acetaminophen 1,000 mg PO Q6H PRN PRN 03/12/20 bisacodyl 5 mg tablet,delayed 5 mg PO ONCE #4 tab 01/05/21 release omeprazole 40 mg capsule,delayed 40 mg PO DAILY #30 cap 01/05/21 release polyethylene glycol 3350 17 gram 255 g PO DAILY #15 ea 01/05/21 oral powder packet Current Visit Medications: Current Medications Generic Name Dose Route Start Last Admin Trade Name Freq PRN Reason Stop Dose Admin Hyoscyamine Sulfate 0.125 mg 01/25/21 06:46 Hyoscyamine 0.125 Mg Sl/Oral/Chew SL DIRECTED PRN Ringer's Solution 1,000 mls @ 80 mls/hr 01/25/21 06:00 IV 02/21/21 23:59 INFUSION [facility] [place] IV Miscellaneous Supplies 1 each 01/25/21 06:00 Iv Access IV 02/21/21 23:59 DIRECTED CHANDAN Ondansetron HCl 4 mg 01/25/21 06:46 Ondansetron 4 Mg/2 Ml Vial IVP Q4H PRN PRN Nausea / Vomiting Sodium Chloride 0 ml 01/25/21 06:00 Normal Saline Flush 10 Ml Syr IV 02/21/21 23:59 PRN PRN Sodium Chloride 0 ml 01/25/21 06:00 Normal Saline 10 Ml Vial IJ 02/21/21 23:59 DIRECTED PRN Sterile Water 0 ml 01/25/21 06:00 Water,Injection,Sterile 10 Ml Vial IJ 02/21/21 23:59 DIRECTED PRN PFSH Active Problems Active Problems: Problem Status Onset Code cp HTN (hypertension) I10 Smoker F17.200 Hyperlipidemia E78.5 gerd Vertigo R42 Jaw pain R68.84 Discharge planning issues Z02.9 Tobacco abuse Z72.0 Encounter for screening for other viral diseases Z11.59 Fall down stairs W10.8XXA Hematoma of frontal scalp S00.03XA Contusion of hand, right S60.221A Neck strain S16.1XXA Screening for colon cancer Z12.11 Leo's esophagus determined by endoscopy K22.70 Prediabetes R73.03 Osteoarthritis M19.90 Decreased hearing of left ear H91.92 Tendonitis of left rotator cuff M75.82 Trochanteric bursitis, right hip M70.61 Status post total right knee replacement 04/16/19 Z96.651 S/P coil embolization of cerebral aneurysm Z98.890 Medical History Medical History Abdominal pain Adenomatous colon polyp Alcohol abuse, in remission [place] [facility] [place] 08[place]2013 Chest pain pt. states 3+ years ago-resolved Decreased hearing of left ear Depression GERD (gastroesophageal reflux disease) Hiatal hernia Hyperlipidemia Impaired fasting glucose Left ventricular hypertrophy pt. is unaware of this. Migraine headache Osteoarthritis Prediabetes Tendonitis of left rotator cuff Subacromial steroid injection: 11/20/2020 Tobacco dependence Trochanteric bursitis, right hip Injection: 07/08/2019 Surgical History Surgical History History of hysterectomy History of knee surgery Right knee arthroscopy x 2 2015; ~2012 Hx of cholecystectomy S/P [place] of [place] [facility] [place] Status post total right knee replacement (04/16/19) Tobacco Smoking/Tobacco Use Status: Current every day Tobacco Type: cigarettes Smoking cigarettes per day: 5 Alcohol Alcohol Intake: former Year quit: 1985 Substance Use Substance use: Never Substance use type: does not use Vital Signs and Lab Results Vital Signs Most Recent Vital Signs in EMR: Most Recent Vital Signs Temp Pulse Resp BP Pulse Ox 36.6 C 82 16 129/80 98 01/25/21 08:40 01/25/21 08:40 01/25/21 08:40 01/25/21 08:40 01/25/21 08:40 Lab Results Blood Type / Crossmatch: No Data to Display Complete Blood Count: No Data to Display Complete Metabolic Panel: No Data to Display Liver Function Panel: No Data to Display Coagulation Panel: No Data to Display Cardiac Panel: No Data to Display Arterial Blood Gas: No Data to Display Venous Blood Gas: No Data to Display Pancreas Panel: No Data to Display Thyroid Panel: No Data to Display Infectious Disease: Coronavirus (COVID-19)(PCR) Negative (Negative) 01/22/21 08:40 01/22/21 Coronavirus 2019 Source Nasal/Nares 01/22/21 08:40 01/22/21 Blood Cultures: No Data to Display Toxicology Panel: No Data to Display Anesthesia Assessment and Plan Anesthesia History Personal History: No History of Anesthesia Complications Family History: No Family History of Anesthesia Complications Exercise Tolerance Exercise Tolerance: Metabolic Equivalents>4 Cardiac & Pulmonary Exam Cardiac Exam: Normal S1/S2 Heart Sounds Pulmonary Exam: Clear Bilateral Breath Sounds Airway Exam Known Difficult Airway: No Mallampati Class: 2 Mouth Opening: Normal (> 3cm) Thyromental Distance: Greater than 3 cm Neck Range of Motion: Full ROM Neck Circumference: Normal Teeth Condition: Normal Dentition ASA Classification ASA Score: ASA 2 Emergency Case?: No NPO Status NPO Status: NPO Clears >2 hours, Solids >8 hours Anesthesia Plan Resuscitation Status: Full Code Anesthesia Technique: General Anesthesia Airway Planned: Natural Airway Monitors Used: Standard Monitors Preoperative Comments:: 65 yo female for colo/egd for screening and hx of tubular adenoma and hx of barretts. Sig PMHX: somker, barretts/GERD, MCA/CHALINO coiling. Previous mac 3 grade 1.
[2021-01-25] MEDS: Lactated Ringers 1,000 ML 80 ML IV (09:00)
[2021-01-25 09:03] VITALS: BMI 23.4
--- NOTE | 2021-01-25 09:47 | BOWEL_PTH ---
PATIENT: Lindsey Lo LOC: [facility] U#:[id number] AGE/SX: 65/F ROOM: RE01/25/[address]: Abida Alvarado MD : 1955 BED: DIS: 01/25/2021 SPEC #: [id number] RECD: 01/25/21 12:50 STATUS: RADHA REQ #: [id number] DAMIAN: 01/25/21 09:[address]: Abida Alvarado DEPT: Surgical Specimen RECD BY: Deborah Rivero ENTERED: 01/25/21 12:53 SP TYPE: Bowel OTHR DR: Bela Navas Tissues: 1 - BIOPSY BOWEL 2 - STOMACH BIOPSY 3 - ESOPHAGUS BIOPSY 4 - BIOPSY BOWEL 5 - BIOPSY BOWEL Procedures: GROSS AND MICRO LEVEL 4 Comments: [id number]
[2021-01-25 10:21] VITALS: BP 122/68; PULSE 61; RESP 16; TEMP 36; O2SAT 97
[2021-01-25 10:51] VITALS: BP 138/73; PULSE 60; RESP 16; TEMP 36.2; O2SAT 99
--- NOTE | 2021-01-25 11:14 | W.ANESPOSTOP ---
Postoperative Evaluation Date, Time and Location Date Performed: 01/25/21 Time Performed: 11:15 Patient Location: Day Surgery Unit Vital Signs Most Recent Imported Vital Signs: Most Recent Vital Signs Temp Pulse Resp BP Pulse Ox 36.6 C 82 16 129/80 98 01/25/21 08:40 01/25/21 08:40 01/25/21 08:40 01/25/21 08:40 01/25/21 08:40 Pain Score Most Recent Pain Score: Most Recent Pain Score Pain Level 0 01/25/21 08:40 Assessment Mental Status: Awake (Alert & Oriented to Patient Baseline) Airway and Respiratory Function: Patent airway with normal (patient baseline) respiratory exam Cardiovascular Function: Hemodynamically Stable Hydration Status: Adequately Hydrated Nausea & Vomiting: No Nausea or Vomiting Pain: Pt. Denies Any Pain Peripheral Nerve Block: Patient did not receive a nerve block
== END 2021-01-25 11:05 | disposition home or self-care (01) ==
LOC: SUR 08:25
PROVIDERS: PCP Family Medicine; Visit Provider Surgery
PROC: (CPT 45385; principal; 2021-01-25 09:45)
DX: Z12.11 Encounter for screening for malignant neoplasm of colon (principal); K22.711 Barrett's esophagus with high grade dysplasia; K29.70 Gastritis, unspecified, without bleeding; K31.89 Other diseases of stomach and duodenum; D12.2 Benign neoplasm of ascending colon; K21.00 Gastro-esophageal reflux disease with esophagitis, without bleeding; K44.9 Diaphragmatic hernia without obstruction or gangrene; Z86.010 Personal history of colon polyps
CPT/HCPCS: 45385; 45380; 43239; 88305; J2001

== ENCOUNTER 2021-02-01 16:20 | Outpatient (REF) | payer MEDICARE, SELFPAY ==
[2021-02-01 14:35] LABS: Abs Immature Grans 0.07 10^3/uL (0.0-0.06); Absolute Basophil Count 0.04 10^3/uL (0.0-0.2); Absolute Eosinophil Count 0.36 10^3/uL (0.0-0.7); Absolute Lymphocyte Count 2.65 10^3/uL (1.2-3.4); Absolute Monocyte Count 0.61 10^3/uL (0.1-0.8); Absolute Neutrophil Count 6.69 10^3/uL (1.2-6.7); Basophils % 0.4; Eosinophils % 3.5; HCT 47.7 % (36.0-46.0); Immature Grans % 0.7; Lymphocytes % 25.4; MCH 31.1 pg (27.0-33.0); MCHC 31.4 % (32.0-36.0); MCV 98.8 fL (80-95); MPV 10.5 fL (8.0-11.0); Monocytes % 5.9; Neutrophils % 64.1; Nucleated RBC 0 %; Platelet Count 237 10^3/uL (130-400); RBC 4.83 10^6/uL (3.93-5.22); RDW 12.6 % (11.7-14.6); RDW-SD 45.6 fL; WBC 10.42 10^3/uL (4.4-10.8)
[2021-02-01 14:59] LABS: Anion Gap 9.2 mmol/L (3-11); BUN 20 mg/dL (7-18); CO2 29.8 mmol/L (21.0-32.0); CREATININE 0.9 mg/dL (0.55-1.02); Calcium 9.9 mg/dL (8.5-10.1); Calculated LDL 117 mg/dL (<100); Chloride 107 mmol/L (98-107); Cholesterol 215 mg/dL (<200); Glucose 103 mg/dL (74-106); HDL Cholesterol 75 mg/dL (40-60); Potassium 5.6 mmol/L (3.5-5.1); Sodium 146 mmol/L (136-145); TSH (W/Ref FT4) 0.97 uIU/mL (0.36-3.74); Triglyceride 116 mg/dL (<150)
[2021-02-01 15:20] LABS: Vitamin D 25 Total 24.3 ng/mL (30-100)
== END 2021-02-01 16:21 | disposition home or self-care (01) ==
LOC: NCHCN 16:20
PROVIDERS: PCP Family Medicine; Referring Provider Family Medicine; Visit Provider Family Medicine
DX: E55.9 Vitamin D deficiency, unspecified (principal); R73.03 Prediabetes; E78.5 Hyperlipidemia, unspecified; R53.83 Other fatigue; I10 Essential (primary) hypertension
CPT/HCPCS: 36415; 80048; 80061; 82306; 83036; 84443; 85025

== ENCOUNTER 2021-03-22 03:27 | Outpatient (CLI) | payer MEDICARE, SELFPAY ==
[2021-03-22 10:29] LABS: Source Nasal/Nares
[2021-03-22 13:39] LABS: COVID-19 PCR Negative (Negative)
== END 2021-03-22 03:28 | disposition home or self-care (01) ==
LOC: LBO 03:27
PROVIDERS: PCP Family Medicine; Visit Provider Physician Assistant Surgical
DX: Z20.822 Contact with and (suspected) exposure to COVID-19 (principal); Z01.818 Encounter for other preprocedural examination
CPT/HCPCS: 87635

== ENCOUNTER 2021-07-28 19:00 | Outpatient (REF) | payer MEDICARE, SELFPAY ==
[2021-07-28 15:02] LABS: BUN 32 mg/dL (7-18); CREATININE 1.3 mg/dL (0.55-1.02); Calcium 9.2 mg/dL (8.5-10.1); Estimated GFR 40.73 (mL/min/1.73m2); Glucose 152 mg/dL (74-106)
[2021-07-28 15:03] LABS: Anion Gap 8.3 mmol/L (3-11); CO2 25.7 mmol/L (21.0-32.0); Chloride 105 mmol/L (98-107); Potassium 3.9 mmol/L (3.5-5.1); Sodium 139 mmol/L (136-145)
== END 2021-07-28 19:01 | disposition home or self-care (01) ==
LOC: NCHCN 19:00
PROVIDERS: PCP Family Medicine; Visit Provider Family Medicine
DX: E87.5 Hyperkalemia (principal); E87.0 Hyperosmolality and hypernatremia
CPT/HCPCS: 80048

== ENCOUNTER 2021-08-26 14:02 | Emergency (ER) | payer MEDICARE, SELFPAY ==
[2021-08-26] VITALS (26 sets, daily range): BP systolic 131–154; BP diastolic 56–82; PULSE 57–77; RESP 15–28; TEMP 37; O2SAT 91–98
--- NOTE | 2021-08-26 14:00 | RT.EKG_ITS ---
APPROVED REPORT Exam: Resting ECG Reason for Exam: CHEST PAIN Patient Location: E HR:62 bpm ECG Measurements Heart Rate 62 AXIS NJ 144 P 57 QRSd 74 QRS 26 QT 406 T 41 QTc 414 Conclusion Sinus rhythm...normal P axis, V-rate 60- 99 Low voltage, extremity leads...all extremity leads <0.5mV. Sinus. Normal axis. No STEMI. I have reviewed and interpreted ECG and agree with software generated interpretation.
--- NOTE | 2021-08-26 14:00 | RT.EKG_ITS ---
APPROVED REPORT Exam: Resting ECG Reason for Exam: CHEST PAIN Patient Location: E HR:61 bpm ECG Measurements Heart Rate 61 AXIS ND 140 P 51 QRSd 75 QRS 25 QT 407 T 38 QTc 410 Conclusion Sinus rhythm...normal P axis, V-rate 60- 99 sinus rhythm, normal axis, normal intervals, non ischemic
--- NOTE | 2021-08-26 14:30 | DI.CT_ITS ---
Exam(s) CT CHEST/ABD/PEL W EXAM: CT CHEST/ABD/PEL W CLINICAL HISTORY: S/P Endoscopy, Chest Pain, R/O Perforation TECHNIQUE: CT examination of the chest, abdomen, and pelvis was performed with intravenous infusion of 100 cc of Omnipaque 350. COMPARISON: CT CT BRAIN CTA from 08/26/2021 FINDINGS: The lungs are clear. There is no pleural effusion seen. There is no mediastinal or hilar adenopathy. Pulmonary arteries are unremarkable with no evidence of pulmonary embolic disease. Thoracic aorta and major branches appear intact with no evidence of aneurysm or dissection. No bony abnormality seen in the thorax. Patient reportedly had endoscopy today. There is moderate-sized hiatal hernia. There is probable mi ld wall thickening distal esophagus with probable folds of the distal esophagus, small quantity of in tramural gas cannot be excluded. There is no extra esophageal gas in the mediastinum to suggest a pe rforation. No free air in the peritoneal cavity. Unremarkable appearance stomach, small bowel, and colon with n o evidence of obstruction. The liver is normal appearance. Gallbladder has been surgically removed, bile ducts are CT normal. No abnormality seen involving the spleen. Pancreas appears intact. The adrenals are unremarkable in appearance. The kidneys appear intact with no evidence of hydroneph rosis or nephrolithiasis. Abdominal aorta and major visceral branches appear intact. No significant abdominal wall hernia seen. No significant abdominal or pelvic adenopathy. No focal bowel pathology. No evidence of appendicitis or diverticulitis. IMPRESSION: No evidence of visceral perforation in a patient who is reportedly post endoscopy.. Deformity of the visualized gas-filled lumen of the esophagus is noted, probably folding of the dista l esophagus, however the possibility of a contained mural tear is not excluded. Please correlate wit h endoscopic findings. RADIATION DOSE DELIVERED: 1,010.55mGy.cm Total DLP 1,010.55mGy.cm Total DLP !Error CTDIvol
--- NOTE | 2021-08-26 14:42 | ED.GENADUL_ITS ---
Discharge Plan Disposition Patient Disposition: HOME Condition: Stable Discharge Details Clinical Impression: Acute epigastric pain Primary Care Provider: Bela Navas ED Provider: Deborah Luo Home Meds and New Rx's Prescriptions: New sucralfate [Carafate] 1 gram tablet 1 g PO BID Qty: 30 0RF famotidine [Pepcid AC] 20 mg tablet 20 mg PO BID Qty: 14 0RF No Action aspirin 325 mg tablet 325 mg PO DAILY 0RF Label Comments: 04/09/19 Pt states she takes 12pm (works 3-11pm) PG atorvastatin 40 MG tablet 40 mg PO HS 0RF Label Comments: 04/09/19 Pt states she takes 12am (works 3-11pm) PG metoprolol tartrate 25 MG tablet 25 mg PO BID 0RF Label Comments: 04/09/19 Pt states she takes 12pm, 12am (works 3-11pm) PG 7/10/18- 25mg PO BID per . epinephrine [EpiPen 2-Jorge] 0.3 MG/0.3 ML auto-injector 0.3 mg IJ DAILY PRN PRNQty: 1 0RF acetaminophen 500 mg tablet 1,000 mg PO Q6H PRN PRN (Reason: pain) 0RF omeprazole 40 mg capsule,delayed release(DR/EC) 40 mg PO BID 0RF amlodipine 2.5 MG tablet 2.5 mg PO HS 0RF Label Comments: 04/09/19 Pt states she takes 12am (works 3-11pm) PG Discharge Instructions Additional Instructions: return to ER with fever, chills worsening pain begin new medications follow-up with GI tomorrow with persistent pain Referrals: Bela Navas MD [Primary Care Provider] - Discharge Data Discharge Date/Time-TO BE ENTERED AT DEPARTURE: 08/26/21 18:59 Medical Decision Making 66-year-old female presents to the ER with chief complaint of midepigastric abdominal/chest pain. Patient is status post endoscopy for Leo's esophagus with [place] [facility] [place] Marie occurred yesterday. She reports that since this morning she has had spasming type midepigastric abdominal pain, nausea, headache. She reports that she called and spoke with Dr. Marie's nurse who was going to call in some sort of lozenges to decrease the pain. She also did call her PCP who instructed her to be evaluated in the ER. Patient has a past medical history of hiatal hernia, TIA,cerebral aneurysms with coil embolization, Leo's esophagus, hyperlipidemia, hypertension, smoker. Cardiac work-up ordered. CT head, CT chest abdomen pelvis to rule out perforation, GI cocktail ordered. Slight leukocytosis white blood cell count of 15.04, absolute neutrophils 11.26, CMP largely within normal limits. Glucose 109 initial troponin within normal limits. EKG was reviewed by [Dr. Maria Eugenia Sheets ER attending, please see her official report. Care is to be handed off to oncoming provider Deborah Luo pending CT head chest abdomen pelvis rule out perforation or CVA. Patient alert and oriented hemodynamically stable at the time of this dictation. Discussed patient case and details with her she verbalizes understanding. If initial work-up negative no need for serial troponin, may consider prescri montse GI cocktail as a prescription. LB 1600 [facility] scan and reassessment CT scan shows possible mural tear, this was discussed with gastroenterology on- call for [facility], they do not see any concerning abnormalities on CT and agree with conservative management with Pepcid, Carafate, continuing Protonix Patient is resting comfortably in room at time of reassessment and feels comfortable discharge home She is given a small amount of opiate analgesia to take should she need it She is asked to call GI at [facility] should her symptoms worsen, however the on- call wet sander did not believe that her symptoms were necessarily related to incidental finding on patient CT scan and her symptoms are likely related to the recent ablation secondary to Leo's esophagus on her endoscopy Patient feels comfortable discharge home at this time She appears symptomatically improved and is resting comfortably at time of reassessment She is given low threshold to return should she have new or worsening complaints We did recheck a troponin and EKG both of which were negative and did not show acute abnormality Patient's exam would be a very atypical presentation for coronary artery disease and my suspicion is quite low for this finding other pain is mostly in the epigastrium and reproducible in nature She will need close outpatient follow-up regardless, she is instructed to call her PCP tomorrow and [facility] GI tomorrow Medical Records Medical records reviewed: Yes I reviewed the patient's medical records. Lab Data Lab results reviewed: Yes I reviewed the patient's lab results. HPI General Mode of arrival: ambulatory . Date/Time Provider Initiated Documentation: 08/26/21 14:05 . Limitations to Documentation: no limitations . Information obtained by: patient, RN notes reviewed and old records reviewed . HPI Narrative: 66-year-old female presents to the ER with chief complaint of midepigastric abdominal/chest pain. Patient is status post endoscopy for Leo's esophagus with biopsies [place] [facility] [place]. Marie occurred yesterday. She reports that since this morning she has had spasming type midepigastric abdominal pain, nausea, headache. She reports that she called and spoke with Dr. Marie's nurse who was going to call in some sort of lozenges to decrease the pain. She also did call her PCP who instructed her to be evaluated in the ER. Patient has a past medical history of hiatal hernia, TIA,cerebral aneurysms with coil embolization, Leo's esophagus, hyperlipidemia, hypertension, smoker. Related Data Home Medications Medication Instructions Recorded Confirmed atorvastatin 40 mg tablet 40 mg PO HS tab-cap 06/22/17 08/26/21 metoprolol tartrate 25 mg tablet 25 mg PO BID 11/05/17 08/26/21 epinephrine 0.3 mg/0.3 mL 0.3 mg (0.3 mL) IJ DAILY PRN PRN 12/15/18 08/26/21 injection, auto-injector (EpiPen #1 packet 2-Jorge) amlodipine 2.5 mg tablet 2.5 mg PO HS 04/09/19 08/26/21 aspirin 325 mg tablet 325 mg PO DAILY 04/09/19 08/26/21 acetaminophen 500 mg tablet 1,000 mg PO Q6H PRN PRN 03/12/20 08/26/21 famotidine 20 mg tablet (Pepcid AC) 20 mg PO BID #14 tab 08/26/21 omeprazole 40 mg capsule,delayed 40 mg PO BID 08/26/21 08/26/21 release sucralfate 1 gram tablet (Carafate) 1 g PO BID #30 tab 08/26/21 Previous Rx's Medication Instructions Recorded epinephrine 0.3 mg/0.3 mL 0.3 mg (0.3 mL) IJ DAILY PRN PRN 12/15/18 injection, auto-injector (EpiPen #1 packet 2-Jorge) famotidine 20 mg tablet (Pepcid AC) 20 mg PO BID #14 tab 08/26/21 sucralfate 1 gram tablet (Carafate) 1 g PO BID #30 tab 08/26/21 Allergies Allergy/AdvReac Type Severity Reaction Status Date / Time venom-honey bee Allergy Severe Anaphylaxsi Verified 08/26/21 15:36 [bee venom (honey bee)] s losartan Allergy Intermediate facial Verified 08/26/21 15:36 swelling isosorbide AdvReac Severe headaches Verified 08/26/21 15:36 amitriptyline AdvReac Intermediate Psychosis Verified 08/26/21 15:36 morphine AdvReac Intermediate Psychosis Verified 08/26/21 15:36 oxycodone AdvReac Intermediate Psychosis Verified 08/26/21 15:36 General Stated Complaint: Chest Pain MORA: 3 Review of Systems All systems reviewed & are unremarkable except as noted in HPI and below Constitutional Constitutional: Denies fever(s), Reports headache(s) and Reports poor appetite ENT Ears, Nose, Mouth, and Throat: Reports headache(s) Cardiovascular Cardiovascular: Reports chest pain Gastrointestinal Gastrointestinal: Reports as per HPI, Reports abdominal pain, Denies melena, Denies hematochezia, Denies coffee ground emesis and Reports nausea Neurologic Neurologic: Reports headache(s) PFSH All Active Problems Acute epigastric pain (Acute) Leo's esophagus with high grade dysplasia (Acute) Tubular adenoma of colon (Acute) cp (Acute) HTN (hypertension) (Acute) Smoker (Acute) Hyperlipidemia (Acute) gerd (Acute) Vertigo (Acute) Jaw pain (Acute) Discharge planning issues (Acute) Tobacco abuse (Acute) Encounter for screening for other viral diseases (Acute) Fall down stairs (Acute) Hematoma of frontal scalp (Acute) Contusion of hand, right (Acute) Neck strain (Acute) Screening for colon cancer (Acute) Leo's esophagus determined by endoscopy (Acute) Prediabetes (Acute) Osteoarthritis (Chronic) Decreased hearing of left ear (Acute) Tendonitis of left rotator cuff (Acute) Subacromial steroid injection: 11/20/2020 Status post total right knee replacement (Chronic 04/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 states 3+ years ago-resolved Depression GERD (gastroesophageal reflux disease) Hiatal hernia Hyperlipidemia Impaired fasting glucose Left ventricular hypertrophy pt. is unaware of this. Migraine headache Tobacco dependence Surgical History History of colonoscopy (~01/2021) History of esophagogastroduodenoscopy (EGD) (~01/2021) History of hysterectomy History of knee surgery Right knee arthroscopy x 2 2015; ~2012 Hx of cholecystectomy Social History Smoking/Tobacco Use Status: Current every day Tobacco Type: cigarettes Smoking risk assessment performed?: Yes Alcohol Intake: former Year quit: 1985 Drug use: Never Substance use type: does not use Current gender identity: female Do you feel safe at home: Yes Do you feel safe in your relationship?: Yes Exam Narrative Exam Narrative: Constitutional: Alert and oriented x3. Appears stated age. Normal body habitus. Head: Normocephalic, no trauma. Eyes: Pupils PERRL, Red reflex noted, EOM's intact. Eyelids symmetrical without lesions, discharge, or swelling. ENT: Bilateral TM's WNL, External ear normal to inspection, no mastoid TTP, swelling, or erythema, Nasal turbinates WNL, no nasal discharge. Normal dentition, Posterior pharynx WNL, no exudate. Chest: RRR, Normal S1, S2, distal pulses intact. Resp: Lungs clear to auscultation bilaterally, no wheezes, rales, or rhonchi. Abdomen: Soft, non-distended, Normoactive bowel sounds all 4 quads. Colicky intermittent and epigastric pain. Musculoskeletal: Normal gait, 5/5 strength to all four extremities. Skin: No suspicious rashes or lesions. Capillary refill less than 2 sec. Neurologic: Cranial nerves II-XII intact. Alert and oriented x 3. Motor: No deficits noted. Sensory: Intact bilaterally all 4 extremities. Reflexes: DTR's intact bilaterally.. Hematologic/Lymphatic: No ecchymosis, no lymphadenopathy. Const General: cooperative, comfortable and no acute distress Eyes Sclera: sclerae normal Resp Effort & Inspection: normal respiratory effort Auscultation: clear to auscultation bilaterally Cardio Rate: regular rate Rhythm: regular rhythm Course Vital Signs Vital signs: Vital Signs Temperature 37 C 08/26/21 14:15 Pulse 61 08/26/21 14:15 Respiratory Rate 18 08/26/21 14:15 Blood Pressure 150/67 H 08/26/21 14:15 Pulse Oximetry 97 08/26/21 14:15 Temperature 37 C 08/26/21 14:15 Temperature Source Temporal Artery Scan 08/26/21 14:15 Pulse 61 08/26/21 14:15 Respiratory Rate 18 08/26/21 14:15 Blood Pressure 150/67 H 08/26/21 14:15 Pulse Oximetry 97 08/26/21 14:15 Oxygen Delivery Method Room Air 08/26/21 14:15 Oxygen Flow Rate 0 08/26/21 14:15 Sign Out Sign Out Data: Sign Out Comment: Pending CTA Head, Chest Abd Pelvis. Was given GI cocktail. Status post endoscopy and biopsy for Leo's esophagus with Dr. Tyler [place] [facility] [place]. Last updated by Nadine Morgan at 08/26/21 15:45
[2021-08-26 15:17] LABS: Abs Immature Grans 0.06 10^3/uL (0.0-0.06); Absolute Basophil Count 0.05 10^3/uL (0.0-0.2); Absolute Eosinophil Count 0.18 10^3/uL (0.0-0.7); Absolute Lymphocyte Count 2.47 10^3/uL (1.2-3.4); Absolute Monocyte Count 1.02 10^3/uL (0.1-0.8); Absolute Neutrophil Count 11.26 10^3/uL (1.2-6.7); Basophils % 0.3; Eosinophils % 1.2; HCT 43.6 % (36.0-46.0); HGB 14.4 g/dL (11.2-15.7); Immature Grans % 0.4; Lymphocytes % 16.4; MCH 31.5 pg (27.0-33.0); MCV 95.4 fL (80-95); MPV 9.8 fL (8.0-11.0); Monocytes % 6.8; Neutrophils % 74.9; Platelet Count 209 10^3/uL (130-400); RBC 4.57 10^6/uL (3.93-5.22); RDW 12.4 % (11.7-14.6); RDW-SD 44.4 fL; WBC 15.04 10^3/uL (4.4-10.8)
[2021-08-26] MEDS: Normal Saline Flush 10 ML SYR IVP ×3 (15:17→17:41)
--- NOTE | 2021-08-26 15:30 | DI.CT_ITS ---
Exam(s) CT BRAIN CTA EXAM: CT BRAIN CTA CLINICAL HISTORY: Hx Aneurysyms TECHNIQUE: COMPARISON: CT CT BRAIN NECK CTA from 03/12/[address] HEAD CERVICAL SPINE WO from 08/01/2020 FINDINGS: Preliminary noncontrast CT of the head shows no evidence of intracranial hemorrhage, mass effect, or midline shift. Following intravenous infusion of 100 cc of Omnipaque 350, the imaging of the intracr anial circulation again shows aneurysm clips at CHALINO and left middle cerebral artery. No change in ap pearance comparison with prior examination. There is mild fusiform dilatation at the junction of bas ilar and posterior cerebral arteries, maximal diameter about 4 millimeters, unchanged from prior exam inations. This has an appearance consistent with tip of the basilar and aneurysm. No new aneurysm, stenosis, or occlusion in the intracranial circulation. Post contrast 5 minutes delayed imaging shows no evidence of enhancing lesion or mass lesion. IMPRESSION: Stable appearance of intracranial circulation post aneurysm clipping. 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 No evidence of acute intracranial hemorrhage RADIATION DOSE DELIVERED: 801.36 mGy.cm Total DLP !Error CTDIvol RADIATION OPTIMIZATION: All CT scans at this facility use at least one of these dose optimization te chniques: automated exposure control; mA and/or kV adjustment per patient size (includes targeted exa ms where dose is matched to clinical indication); or iterative reconstruction.
[2021-08-26 15:33] LABS: ALT 28 U/L (14-59); AST 16 U/L (15-37); Albumin 3.6 g/dL (3.4-5.0); Alkaline Phosphatase 101 U/L (46-116); Anion Gap 9.6 mmol/L (3-11); BUN 15 mg/dL (7-18); Bilirubin, Total 0.7 mg/dL (0.2-1.0); CO2 25.4 mmol/L (21.0-32.0); CREATININE 0.7 mg/dL (0.55-1.02); Calcium 9.2 mg/dL (8.5-10.1); Chloride 105 mmol/L (98-107); Glucose 109 mg/dL (74-106); Magnesium 2.1 mg/dL (1.8-2.4); Potassium 3.9 mmol/L (3.5-5.1); Sodium 140 mmol/L (136-145); Troponin I < 50 ng/L (<or=60)
[2021-08-26] MEDS: Omnipaque 350 MG/ML 100 ML BTL IJ ×2 (16:14→16:38)
[2021-08-26] MEDS: Famotidine 20 MG/2 ML VIAL IVP (17:21)
[2021-08-26] MEDS: Sucralfate 1 GM TAB PO (17:21)
[2021-08-26] MEDS: Normal Saline 50 ML 200 ML (17:22)
--- NOTE | 2021-08-26 17:30 | RT.EKG_ITS ---
APPROVED REPORT Exam: Resting ECG Reason for Exam: CHEST PAIN Patient Location: E HR:62 bpm ECG Measurements Heart Rate 62 AXIS TX 144 P 57 QRSd 74 QRS 26 QT 406 T 41 QTc 414 Conclusion Sinus rhythm...normal P axis, V-rate 60- 99 Low voltage, extremity leads...all extremity leads <0.5mV. Sinus. Normal axis. No STEMI. I have reviewed and interpreted ECG and agree with software generated interpretation.
[2021-08-26 17:39] LABS: Troponin I < 50 ng/L (<or=60)
[2021-08-26] MEDS: fentaNYL 100 MCG/2 ML VIAL 50 MCG IVP (17:41)
== END 2021-08-26 18:59 | disposition home or self-care (01) ==
PROVIDERS: Registered Nurse Emergency; Emergency Provider Physician Assistant; PCP Family Medicine
DX: R10.13 Epigastric pain (principal); R07.89 Other chest pain; R51.9 Headache, unspecified; Z86.79 Personal history of other diseases of the circulatory system; F17.210 Nicotine dependence, cigarettes, uncomplicated
CPT/HCPCS: 36415; 70496; 74177; 80053; 93005; 96374; 96375; 99285; 71260; 83735; 84484; 85025; 85610; 93010; 99284; J3010; J3490

== ENCOUNTER → 2021-12-08 15:36 | Outpatient (CLI) | payer MEDICARE, SELFPAY ==
--- NOTE | 2021-12-08 | DI.RAD_ITS ---
Exam(s) XR SHOULDER RT COMPLETE 2+V EXAM: XR SHOULDER RT COMPLETE 2+V CLINICAL HISTORY: PAIN RT SHOULDER M25.511. TECHNIQUE: 2D digital imaging was performed of the right shoulder. Five images were obtained. AP, Grashey, Y-view and axillary views were obtained. COMPARISON: CR RIGHT SHOULDER COMPLETE from 09/17/2009 FINDINGS: BONES: No acute fracture is present. No bony destructive lesion is seen. JOINTS: No dislocation present. SOFT TISSUE: Normal. IMPRESSION: Unremarkable radiographs of the right shoulder. DATA REPOSITORY: RADIATION DOSE DELIVERED:
--- NOTE | 2021-12-08 16:13 | DI.VRAD_ITS ---
PROCEDURE INFORMATION: Exam: XR Right Shoulder Exam date and time: 12/08/2021 3:34 PM Age: 66 years old Clinical indication: Other: RT shoulder pain TECHNIQUE: Imaging protocol: Radiologic exam of the Right shoulder. Views: 2 or more views. COMPARISON: CT CHEST/ABD/PEL W 08/26/2021 4:37 PM FINDINGS: Bones/joints: No acute fracture or malalignment. No significant degenerative change of the right shoulder. Degenerative change of the included portions of the cervical and thoracic spine. Small subchondral cyst of the humeral head, better visualized on the August 26, [address] No agressive bone destruction. Soft tissues: Unremarkable. IMPRESSION: 1. No acute findings. 2. If clinical concern for occult fracture, consider followup radiographs in 7-10 days. Dictated and Authenticated by: Luana Coleman MD. Ordering:PAVAN Landin MD
== END ==
PROVIDERS: PCP Family Medicine; Visit Provider Physician Assistant Medical
DX: M25.511 Pain in right shoulder (principal)
CPT/HCPCS: 73030

== ENCOUNTER 2021-12-24 15:02 | Outpatient (REF) | payer MEDICARE, SELFPAY ==
[2021-12-24 14:12] LABS: Abs Immature Grans 0.05 10^3/uL (0.0-0.06); Absolute Basophil Count 0.04 10^3/uL (0.0-0.2); Absolute Lymphocyte Count 2.47 10^3/uL (1.2-3.4); Absolute Monocyte Count 0.57 10^3/uL (0.1-0.8); Absolute Neutrophil Count 5.12 10^3/uL (1.2-6.7); Basophils % 0.5; Eosinophils % 2.4; HCT 46.3 % (36.0-46.0); HGB 15.1 g/dL (11.2-15.7); Immature Grans % 0.6; Lymphocytes % 29.2; MCH 31.3 pg (27.0-33.0); MCHC 32.6 % (32.0-36.0); MCV 96 fL (80-95); MPV 10.2 fL (8.0-11.0); Monocytes % 6.7; Neutrophils % 60.6; Platelet Count 222 10^3/uL (130-400); RBC 4.83 10^6/uL (3.93-5.22); RDW 12.8 % (11.7-14.6); RDW-SD 45.9 fL; WBC 8.45 10^3/uL (4.4-10.8)
[2021-12-24 14:23] LABS: ALT 40 U/L (14-59); AST 27 U/L (15-37); Albumin 3.9 g/dL (3.4-5.0); Alkaline Phosphatase 103 U/L (46-116); Anion Gap 8.1 mmol/L (3-11); BUN 15 mg/dL (7-18); Bilirubin, Total 0.7 mg/dL (0.2-1.0); CO2 29.9 mmol/L (21.0-32.0); CREATININE 0.8 mg/dL (0.55-1.02); Calcium 9.5 mg/dL (8.5-10.1); Chloride 106 mmol/L (98-107); Glucose 101 mg/dL (74-106); Potassium 4.7 mmol/L (3.5-5.1); Sodium 144 mmol/L (136-145); Total Protein 6.9 g/dL (6.4-8.2)
[2021-12-24 14:38] LABS: Troponin I < 50 ng/L (<or=60)
== END 2021-12-24 15:03 | disposition home or self-care (01) ==
LOC: LBN 15:02
PROVIDERS: PCP Family Medicine; Visit Provider Physician Assistant
DX: I10 Essential (primary) hypertension (principal); R07.9 Chest pain, unspecified
CPT/HCPCS: 80053; 84484; 85025

== ENCOUNTER 2022-02-01 22:21 | Outpatient (REF) | payer MEDICARE, SELFPAY ==
[2022-02-01 19:32] LABS: Hemoglobin A1C 6.2 % (<5.7)
[2022-02-01 19:36] LABS: Anion Gap 7.8 mmol/L (3-11); BUN 13 mg/dL (7-18); CO2 30.2 mmol/L (21.0-32.0); CREATININE 0.9 mg/dL (0.55-1.02); Calcium 9.8 mg/dL (8.5-10.1); Chloride 103 mmol/L (98-107); Estimated GFR 69.64 (mL/min/1.73m2); Glucose 89 mg/dL (74-106); Potassium 4.3 mmol/L (3.5-5.1); Sodium 141 mmol/L (136-145)
[2022-02-02 17:48] LABS: Albumin, Ur < 0.6 mg/dL (See Note); Creatinine, Ur 43.4 mg/dL (See Note)
== END 2022-02-01 22:22 | disposition home or self-care (01) ==
LOC: NCHCN 22:21
PROVIDERS: PCP Family Medicine; Visit Provider Family Medicine
DX: R73.03 Prediabetes (principal); I10 Essential (primary) hypertension
CPT/HCPCS: 80048; 82043; 82570; 83036

== ENCOUNTER → 2022-02-16 01:42 | Outpatient (CLI) | payer MEDICARE, SELFPAY ==
--- NOTE | 2022-02-16 15:00 | DI.MAMMO_ITS ---
Exam(s) MAMMO SCREENING EXAM: MAMMO SCREENING CLINICAL HISTORY: SCREENING, Z12.39 TECHNIQUE: Mammograms were interpreted according to the usual protocol including computer analysis w [employer] CAD system, tomosynthesis and C-view imaging. COMPARISON: 2012 through 2019 FINDINGS: The breasts are composed of heterogeneously dense fibroglandular densities, Breast Density category C . No suspicious masses or suspicious microcalcifications are seen. No skin thickening or abnormal axillary lymph nodes are seen. There has been no significant change from prior exams. IMPRESSION: BI-RADS Category 1, Negative mammogram. Yearly screening mammography is recommended. Breast Density Category C, heterogeneously Dense. The mammogram demonstrates the patient's breast tissue is dense. Dense breast tissue is very common a nd is not abnormal but dense breast tissue can make it harder to find cancer on a mammogram. Also, de nse breast tissue may increase breast cancer risk. This information about the result of the mammogram report was provided to the patient to raise their awareness. Use this report when you speak with the patient about their risks for breast cancer, which includes their family history. At that time, you may recommend additional screening tests (Ultrasound or MRI) as they might be useful based on their r isk. A negative radiographic report should not delay biopsy if a dominant or clinically suspicious mass is present. Up to ten percent of cancers are not identified on mammography. A negative report may reinforce clinical impression. Adenosis and dense breasts may obscure an underlying neoplasm. False positive reports average 6 to 10%.
== END ==
PROVIDERS: PCP Family Medicine; Visit Provider Family Medicine
DX: Z12.31 Encounter for screening mammogram for malignant neoplasm of breast (principal)
CPT/HCPCS: 77063; 77067

== ENCOUNTER → 2022-03-21 11:06 | Outpatient (BNVA) | payer MEDICARE, SELFPAY | PROVIDERS: PCP Family Medicine; Referring Provider Family Medicine; Visit Provider Student in an Organized Health Care Education/Training Program | DX: M75.81 Other shoulder lesions, right shoulder (principal); M75.21 Bicipital tendinitis, right shoulder; M75.51 Bursitis of right shoulder | CPT/HCPCS: 20610; J1040 ==

== ENCOUNTER 2022-06-24 12:29 | Outpatient (CLI) | payer MEDICARE, SELFPAY ==
--- NOTE | 2022-06-24 | DI.RAD_ITS ---
Exam(s) XR LUMBAR SPINE COMPLETE EXAM: XR LUMBAR SPINE COMPLETE CLINICAL HISTORY: CHRONIC LOW BACK PAIN M54.59. TECHNIQUE: 2D digital imaging was performed of the lumbar spine. Five images were obtained. AP, la teral, right oblique, left oblique and L5-S1 spot views were obtained. COMPARISON: No exams were available for comparison FINDINGS: BONES: No fracture or destructive lesion. Endplate osteophytes are seen at multiple levels of the lum bar spine. The findings are most marked at L1-L2. There are degenerative changes of the facets at L5 -S1. DISKS: There is disc space narrowing at L1-L2. ALIGNMENT: There is grade 1 pseudo spondylolisthesis. No spondylolysis. SOFT TISSUE: Atherosclerosis is present. Surgical clips are seen in the right upper quadrant suggest ing prior cholecystectomy. IMPRESSION: Degenerative changes in the lumbar spine. No acute abnormality. DATA REPOSITORY: RADIATION DOSE DELIVERED:
== END 2022-06-24 12:49 ==
LOC: DI 12:31
PROVIDERS: PCP Family Medicine; Visit Provider Family Medicine
DX: M47.816 Spondylosis without myelopathy or radiculopathy, lumbar region (principal)
CPT/HCPCS: 72110

== ENCOUNTER 2022-08-22 13:25 | Outpatient (REF) | payer MEDICARE, SELFPAY ==
[2022-08-22 12:48] LABS: Ferritin 31 ng/mL (8-252); Vitamin B12 363 pg/mL (193-986)
[2022-08-22 13:24] LABS: Vitamin D 25 Total 23.4 ng/mL (30-100)
== END 2022-08-22 13:26 | disposition home or self-care (01) ==
LOC: LBN 13:25
PROVIDERS: PCP Family Medicine; Visit Provider Internal Medicine Sleep Medicine
DX: M25.561 Pain in right knee (principal); E55.9 Vitamin D deficiency, unspecified; R53.83 Other fatigue; R06.83 Snoring
CPT/HCPCS: 82306; 82607; 82728

== ENCOUNTER → 2023-01-24 10:55 | Outpatient (BNVA) | payer MEDICARE, SELFPAY | PROVIDERS: PCP Family Medicine; Referring Provider Family Medicine; Visit Provider Surgery | DX: K22.70 Barrett's esophagus without dysplasia (principal); Z87.19 Personal history of other diseases of the digestive system; Z98.890 Other specified postprocedural states | CPT/HCPCS: 99212; 99213 ==

== ENCOUNTER 2023-05-17 06:15 | Day surgery (SDC) | payer MEDICARE, SELFPAY ==
--- NOTE | 2023-05-16 20:03 | W.PREOPHP ---
Assessment and Plan Assessment and plan (1) History of Leo's esophagus: Status: Acute Assessment and plan: we reviewed the plan for surveillance EGD today, as well sa the risks and benefits. I think she has a great understanding of the procedure and we can proceed as planned. History of Present Illness History of Present Illness Chief Complaint: Barretts esophagus Narrative: She was diagnosed with Leo's esophagitis with high grade dysplasia in 2020. She was seen down at [facility] and underwent an ablation of her Leo's. She did not have a good experience down to [facility] so wanted to have her surveillance done up here. She denies any dysphagia at this time. She does have some sharp pain in the midsternum that wakes her up at night. She states that she is a night eater as she gets off of work at around 11 PM. She continues to take omeprazole 40 mg daily to control her reflux. Her past medical history is significant for hyperlipidemia, hypertension, history of brain aneurysm status post coiling and more recently sinus infections. She has had 3 sinus infections in the last year. Last one was 4 months ago. She denies any shortness of breath with activity. She denies any chest pain or palpitations. She has not had any MIs or stroke. Since her last office visit, she has been dealing with some upper respiratory tract infection. She has been tested for COVID and flu. Both of those are negative. Her symptoms are starting to improve. She denies any shortness of breath. [facility] All Active Problems History of Leo's esophagus (Acute) Biceps tendonitis on right (Acute) Bursitis of right shoulder (Acute) Right rotator cuff tendonitis (Acute) DEPO 03/21/22 Leo's esophagus with high grade dysplasia (Acute) Tubular adenoma of colon (Acute) Leo's esophagus determined by endoscopy (Acute) Tendonitis of left rotator cuff (Acute) Subacromial steroid injection: 11/20/2020 Decreased hearing of left ear (Acute) Osteoarthritis (Chronic) Prediabetes (Acute) Screening for colon cancer (Acute) Neck strain (Acute) Contusion of hand, right (Acute) Hematoma of frontal scalp (Acute) Fall down stairs (Acute) Encounter for screening for other viral diseases (Acute) 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 states 3+ years ago-resolved Abdominal pain Barretts esophagus [facility] [place] Normal path in 08/2013 GERD (gastroesophageal reflux disease) Alcohol abuse, in remission Adenomatous colon polyp Impaired fasting glucose Left ventricular hypertrophy pt. is unaware of this. Hyperlipidemia Migraine headache Depression Tobacco dependence Surgical History S/P coil embolization of cerebral aneurysm unruptured 2018 x2 Hx of prior ablation treatment esophageal ablation for Leo's with high grade displacia History of esophagogastroduodenoscopy (EGD) (~01/2021) History of colonoscopy (~01/2021) History of hysterectomy History of knee surgery Right knee arthroscopy x 2 2015; ~2012 2023: pt. reports R TKA Hx of cholecystectomy Social History Smoking/Tobacco Use Status: Current every day Tobacco Type: cigarettes Smoking risk assessment performed?: Yes Alcohol Intake: former Year quit: 1985 Drug use: Never Substance use type: does not use Details: alcohol: 38 years ago Housing: house Current gender identity: female Do you feel safe at home: Yes Do you feel safe in your relationship?: Yes Meds Allergies and Home Medications Allergies Allergy/AdvReac Type Severity Reaction Status Date / Time venom-honey bee Allergy Severe Anaphylaxsi Verified 05/17/23 06:37 [bee venom (honey bee)] s losartan Allergy Intermediate facial Verified 05/17/23 06:37 swelling amoxicillin Allergy Verified 05/17/23 06:37 isosorbide AdvReac Severe headaches Verified 05/17/23 06:37 amitriptyline AdvReac Intermediate Psychosis Verified 05/17/23 06:37 morphine AdvReac Intermediate Psychosis Verified 05/17/23 06:37 oxycodone AdvReac Intermediate Psychosis Verified 05/17/23 06:37 Home Medications Medication Instructions Recorded Confirmed Type atorvastatin 40 mg tablet 40 mg PO HS 06/22/17 05/17/23 History metoprolol tartrate 25 mg tablet 25 mg PO BID 11/05/17 05/17/23 History epinephrine 0.3 mg/0.3 mL 0.3 mg (0.3 mL) IJ DAILY PRN PRN 12/15/18 05/17/23 Rx injection, auto-injector (EpiPen #1 packet 2-Jorge) amlodipine 2.5 mg tablet 2.5 mg PO HS 04/09/19 05/17/23 History acetaminophen 500 mg tablet 1,000 mg PO Q6H PRN PRN pain 03/12/20 05/17/23 History omeprazole 40 mg capsule,delayed 40 mg PO DAILY 03/21/22 05/17/23 History release cholecalciferol (vitamin D3) 50 50 mcg PO DAILY 10/04/22 05/17/23 History mcg (2,000 unit) capsule epinephrine 0.3 mg/0.3 mL 0.3 mg IM ONCE 01/20/23 05/17/23 History injection, auto-injector (EpiPen) aspirin 81 mg tablet,delayed 81 mg PO DAILY 03/09/23 05/17/23 History release Exam Const General: cooperative, healthy appearing and not in acute distress Neck Neck: normal visual inspection, no lymphadenopathy and supple Resp Effort & Inspection: normal respiratory effort Auscultation: clear to auscultation bilaterally Cardio Jugular venous pressure: no JVD Rate: regular rate Rhythm: regular rhythm Heart Sounds: S1 normal and S2 normal GI Inspection: normal to inspection Palpation: soft, no guarding, no hernias and nontender Percussion: normal to percussion Auscultation: normal bowel sounds Neuro General: patient alert, patient awake and patient oriented x3 Psych Appearance: grossly normal
--- NOTE | 2023-05-16 20:12 | W.PM.DSUDISC ---
Date of service: 05/17/23 Time of Service: 08:00 Discharge Plan Disposition Patient Disposition: Home Condition: Good Discharge Details Reason For Visit: surveillance EGD for Barretts esophagus Attending Provider: Rc Paz Primary Care Provider: Bela Navas Home Meds and New Rx's Prescriptions: Continued epinephrine [EpiPen] 0.3 mg/0.3 mL auto-injector 0.3 mg IM ONCE Rx Instructions: as a single dose; may repeat once atorvastatin 40 MG tablet 40 mg PO HS Patient Comments: 04/09/19 Pt states she takes 12am (works 3-11pm) PG cholecalciferol (vitamin D3) 50 mcg (2,000 unit) capsule 50 mcg PO DAILY aspirin 81 mg tablet,delayed release (DR/EC) 81 mg PO DAILY metoprolol tartrate 25 MG tablet 25 mg PO BID Patient Comments: 04/09/19 Pt states she takes 12pm, 12am (works 3-11pm) PG 7/10/18- 25mg PO BID per . epinephrine [EpiPen 2-Jorge] 0.3 MG/0.3 ML auto-injector 0.3 mg IJ DAILY PRN PRNQty: 1 0RF acetaminophen 500 mg tablet 1,000 mg PO Q6H PRN PRN (Reason: pain) omeprazole 40 mg capsule,delayed release(DR/EC) 40 mg PO DAILY amlodipine 2.5 MG tablet 2.5 mg PO HS Patient Comments: 04/09/19 Pt states she takes 12am (works 3-11pm) PG Discharge Instructions Instructions: Leo Esophagus (GEN) Additional Instructions: Lindsey, we were able to complete your upper endoscopy today without any difficulty. I did see evidence of short segment Leo's esophagus. To the naked eye, there was nothing particularly worrisome. I did perform biopsies all throughout the area. Similar to your previous experience, we will send these to the pathologist, and that we will analyze them for the presence of any metaplasia or dysplasia. If we find evidence of that, we can talk about different treatment options. 1. If tolerated, consume a soft, low fiber diet for 1-2 days. 2[address] Do not drive, drink alcohol, operate machinery, make critical decisions, or do activities that require coordination or balance for 24 hours. 3. You may experience a sore throat for 24 to 48 hours. You may use throat lozenges or gargle with warm salt water to relieve the discomfort. 4. Because air was put into your stomach during the procedure, you may experience some belching. 5. Go directly to the emergency room if you notice any of the following: Develop chills (warm to touch), or if you have a thermometer and your temperature is above 101 Difficulty breathing or difficultly swallowing Persistent vomiting Severe abdominal pain, other than gas cramps Severe chest pain Black, tarry stools Any bleeding ? exceeding one tablespoon 6. Call your physician if the site where your intravenous was started becomes red, swollen, painful, and warm to touch. 7. Your physician has reviewed your pre-procedure medications. Please continue to take those medications as previously ordered. You will be given specific information/education regarding any changes to your medications before leaving. Stand Alone Forms: Anesthesia Discharge Inst., DSU Post EGD Instructions, Connor Hoff (DSU) Activity:: Activity as Tolerated Diet:: As Tolerated Discharge Orders Discharge Orders: Discharge Order (Routine); Ordered 05/16/23 Ordered By: Rc Paz DS: Diagnosis Discharge Diagnosis (1) History of Leo's esophagus: Status: Acute Asessment and Plan: Follow-up on biopsy results
--- NOTE | 2023-05-16 20:15 | W.PM.ENDDOP ---
Date of service: 05/17/23 Time of Service: 08:01 Endoscopy Report DATE OF PROCEDURE: 05/17/23 PRE-OP DIAGNOSIS: Barrets esophagus POST-OP DIAGNOSIS: same PROCEDURE: EGD with biopsies SURGEON: Rc Paz ANESTHESIA TYPE: MAC ESTIMATED BLOOD LOSS: 10 PATHOLOGY: other (GE junction biopsies from 28 cm from the incisors to 30 cm from the incisors) COMPLICATIONS: None DISPOSITION: same day INDICATIONS: She was diagnosed with Leo's esophagitis with high grade dysplasia in 2020. She was seen down at [facility] and underwent an ablation of her Leo's. She did not have a good experience down to [facility] so wanted to have her surveillance done up here. She denies any dysphagia at this time. She does have some sharp pain in the midsternum that wakes her up at night. She states that she is a night eater as she gets off of work at around 11 PM. She continues to take omeprazole 40 mg daily to control her reflux. PROCEDURE START TIME: 07:33 PROCEDURE END TIME: 07:40 FINDINGS: Short segment Leo's esophagus extending from 28 cm at the incisors to 30 cm from the incisors PROCEDURE DESCRIPTION: After the initiation of monitored anesthetic care, and with the assistance of a bite block, I advanced a standard gastroscope through the mouth past the hypopharynx and into the esophagus.? Under the direct vision of the scope, I advanced down the esophagus into the stomach.? The upper and mid portions of the esophagus were normal. A majority of the lower portion of the esophagus was normal. There was irregularity of the Z-line beginning around 28 cm from the incisors down to the GE junction which measured at 30 cm from the incisors. Narrowband imaging was used to help with analysis. There were clinical features consistent with Leo's esophagus. I was able to pass the scope down through the GE junction without any difficulty at all. The stomach was insufflated until the gastric rugae were completely obliterated. I performed retroflexion. I was not able to appreciate any significant hiatal hernia. The gastric cardia, body, antrum and pylorus were all normal-appearing. I was able to navigate across the pylorus without any difficulty. The duodenal bulb was normal. The first and second portions of the duodenum were normal. I then emptied the duodenum and brought the camera back into the stomach. It was examined 1 last time. Again, no significant abnormalities were encountered. I emptied the stomach, and brought the camera up to the GE junction 1 more time. Given the short segment Leo's esophagus, I did perform four-quadrant biopsies at 30 cm, as well as 28 cm from the incisors. Cold forceps were used and there was minimal bleeding. I irrigated the area clean, and evacuated the lower esophagus. The camera was then brought out along the length of the esophagus 1 last time. There were no other abnormalities appreciated.
--- NOTE | 2023-05-17 06:21 | ANES.PREOP_ITS ---
General Info Date of Service Date Performed: 05/17/23 Height: 5 ft 2 in Weight: 63.503 kg Body Mass Index (BMI): 25.6 Surgical Procedure: Operation Date: 05/17/23 07:35 Proposed Procedure Side Surgeon p Gastroscopy Rc Paz MD Meds Allergies and Home Medications Allergies Allergy/AdvReac Type Severity Reaction Status Date / Time venom-honey bee Allergy Severe Anaphylaxsi Verified 05/17/23 06:37 [bee venom (honey bee)] s losartan Allergy Intermediate facial Verified 05/17/23 06:37 swelling amoxicillin Allergy Verified 05/17/23 06:37 isosorbide AdvReac Severe headaches Verified 05/17/23 06:37 amitriptyline AdvReac Intermediate Psychosis Verified 05/17/23 06:37 morphine AdvReac Intermediate Psychosis Verified 05/17/23 06:37 oxycodone AdvReac Intermediate Psychosis Verified 05/17/23 06:37 Home Medication Medication Instructions Recorded atorvastatin 40 mg tablet 40 mg PO HS 06/22/17 metoprolol tartrate 25 mg tablet 25 mg PO BID 11/05/17 epinephrine 0.3 mg/0.3 mL 0.3 mg (0.3 mL) IJ DAILY PRN PRN 12/15/18 injection, auto-injector (EpiPen #1 packet 2-Jorge) amlodipine 2.5 mg tablet 2.5 mg PO HS 04/09/19 acetaminophen 500 mg tablet 1,000 mg PO Q6H PRN PRN pain 03/12/20 omeprazole 40 mg capsule,delayed 40 mg PO DAILY 03/21/22 release cholecalciferol (vitamin D3) 50 50 mcg PO DAILY 10/04/22 mcg (2,000 unit) capsule epinephrine 0.3 mg/0.3 mL 0.3 mg IM ONCE 01/20/23 injection, auto-injector (EpiPen) aspirin 81 mg tablet,delayed 81 mg PO DAILY 03/09/23 release Current Visit Medications: Current Medications Generic Name Dose Route Start Last Admin Trade Name Freq PRN Reason Stop Dose Admin Hyoscyamine Sulfate 0.125 mg 05/16/23 20:19 Hyoscyamine 0.125 Mg Sl/Oral/Chew SL 06/15/23 20:18 DIRECTED PRN Ringer's Solution 1,000 mls @ 80 mls/hr 05/17/23 06:00 IV 05/17/23 23:59 INFUSION [facility] IV Miscellaneous Supplies 1 each 05/17/23 06:00 Iv Access IV 05/17/23 23:59 DIRECTED CHANDAN Ondansetron HCl 4 mg 05/16/23 20:19 Ondansetron 4 Mg/2 Ml Vial IVP 06/15/23 20:18 Q4H PRN PRN Nausea / Vomiting Sodium Chloride 0 ml 05/17/23 06:00 Normal Saline Flush 10 Ml Syr IV 05/17/23 23:59 PRN PRN Sodium Chloride 0 ml 05/17/23 06:00 Normal Saline 10 Ml Vial IJ 05/17/23 23:59 DIRECTED PRN Sterile Water 0 ml 05/17/23 06:00 Water,Injection,Sterile 10 Ml Vial IJ 05/17/23 23:59 DIRECTED PRN PFSH Active Problems Active Problems: Problem Status Onset Code History of Leo's esophagus Z87.19 Biceps tendonitis on right M75.21 Bursitis of right shoulder M75.51 Right rotator cuff tendonitis M75.81 Leo's esophagus with high grade dysplasia K22.711 Tubular adenoma of colon D12.6 Leo's esophagus determined by endoscopy K22.70 Tendonitis of left rotator cuff M75.82 Decreased hearing of left ear H91.92 Osteoarthritis M19.90 Prediabetes R73.03 Screening for colon cancer Z12.11 Neck strain S16.1XXA Contusion of hand, right S60.221A Hematoma of frontal scalp S00.03XA Fall down stairs W10.8XXA Encounter for screening for other viral diseases Z11.59 Trochanteric bursitis, right hip M70.61 Status post total right knee replacement 04/16/19 Z96.651 S/P coil embolization of cerebral aneurysm Z98.890 Tobacco abuse Z72.0 Discharge planning issues Z02.9 Jaw pain R68.84 Vertigo R42 gerd Hyperlipidemia E78.5 Smoker F17.200 HTN (hypertension) I10 cp Medical History Medical History Hx of arterial aneurysm Low back pain Chronic fatigue Decreased hearing of right ear Hiatal hernia Chest pain pt. states 3+ years ago-resolved Abdominal pain Barretts esophagus [facility] 2006 Normal path in 08/2013 GERD (gastroesophageal reflux disease) Alcohol abuse, in remission Adenomatous colon polyp Impaired fasting glucose Left ventricular hypertrophy pt. is unaware of this. Hyperlipidemia Migraine headache Depression Tobacco dependence Surgical History Surgical History S/P coil embolization of cerebral aneurysm unruptured 2019 x2 Hx of prior ablation treatment esophageal ablation for Leo's with high grade displacia History of esophagogastroduodenoscopy (EGD) (~01/2021) History of colonoscopy (~01/2021) History of hysterectomy History of knee surgery Right knee arthroscopy x 2 2015; ~2013 Hx of cholecystectomy Tobacco Smoking/Tobacco Use Status: Current every day Tobacco Type: cigarettes Smoking cigarettes per day: 5 Alcohol Alcohol Intake: former Year quit: 1985 Substance Use Substance use: Never Substance use type: does not use Vital Signs and Lab Results Vital Signs Most Recent Vital Signs in EMR: Temp 36.6 C 05/17/23 06:34 Temp Pulse Resp BP Pulse Ox 36.6 C 72 18 141/67 H 97 05/17/23 06:34 05/17/23 06:34 05/17/23 06:34 05/17/23 06:34 05/17/23 06:34 Lab Results Blood Type / Crossmatch: No Data to Display Complete Blood Count: No Data to Display Complete Metabolic Panel: No Data to Display Liver Function Panel: No Data to Display Coagulation Panel: No Data to Display Cardiac Panel: No Data to Display Arterial Blood Gas: No Data to Display Venous Blood Gas: No Data to Display Pancreas Panel: No Data to Display Thyroid Panel: No Data to Display Infectious Disease: No Data to Display Blood Cultures: No Data to Display Toxicology Panel: No Data to Display Imaging and Studies Imaging and Studies Study information below may be from another EMR and interpreted by another provider. Please see original notes in EMR for more complete details. EKG Summary: 09/03: sinus. Stress Test Summary: 04/30: normal study after maximal exercise. Anesthesia Assessment and Plan Anesthesia History Personal History: No History of Anesthesia Complications Family History: No Family History of Anesthesia Complications Exercise Tolerance Exercise Tolerance: Metabolic Equivalents>4 Cardiac & Pulmonary Exam Cardiac Exam: Normal S1/S2 Heart Sounds Pulmonary Exam: Clear Bilateral Breath Sounds Implantable Cardiac Device Does patient have a Pacemaker or an ICD?: No Airway Exam Known Difficult Airway: No Mallampati Class: 2 Mouth Opening: Normal (> 3cm) Thyromental Distance: Greater than 3 cm Neck Range of Motion: Full ROM Neck Circumference: Normal Teeth Condition: Normal Dentition ASA Classification ASA Score: ASA 2 Emergency Case?: No NPO Status NPO Status: NPO Clears >2 hours, Solids >8 hours Anesthesia Plan Resuscitation Status: Full Code Anesthesia Technique: General Anesthesia Airway Planned: Natural Airway Monitors Used: Standard Monitors Preoperative Comments:: 67 yo female for EGD. Sig PMHx: barretts/GERD, depression, s/p cerebral aneurysm coiling MCA/CHALINO, smoker, former EtOH. Previous Anes: - colo/egd, prop, natural airway, no issues. - TKA, spinal, prop sedation, no issues. - Knee scope, mac 3 grade 1, no issues.
[2023-05-17 06:27] VITALS: BMI 25.6
[2023-05-17 06:34] VITALS: BP 141/67; PULSE 72; RESP 18; TEMP 36.6; O2SAT 97
[2023-05-17] MEDS: Lactated Ringers 1,000 ML 80 ML IV (07:15)
--- NOTE | 2023-05-17 07:36 | ESO_PTH ---
PATIENT: Lindsey Lo LOC: [facility] U#:[id number] AGE/SX: 67/F ROOM: RE05/17/[address]: Rc Paz MD : [id number] BED: DIS: 05/17/2023 SPEC #: [id number] RECD: 05/17/23 11:32 STATUS: RADHA REQ #: [id number] DAMIAN: 05/17/23 07:[address]: Rc Paz DEPT: Surgical Specimen RECD BY: Deborah Rivero ENTERED: 05/17/23 11:32 SP TYPE: Eso SAMUEL DR: Bela Navas Tissues: 1 - ESOPHAGUS BIOPSY Procedures: GROSS AND MICRO LEVEL 4 Comments: [id number]
[2023-05-17 07:45] VITALS: BP 107/50; PULSE 70; RESP 18; TEMP 36.3; O2SAT 94
[2023-05-17 08:15] VITALS: BP 109/50; PULSE 66; RESP 18; TEMP 36.6; O2SAT 96
--- NOTE | 2023-05-17 10:13 | W.ANESPOSTOP ---
Postoperative Evaluation Date, Time and Location Date Performed: 05/17/23 Time Performed: 10:13 Patient Location: Day Surgery Unit Vital Signs Most Recent Imported Vital Signs: Most Recent Vital Signs Temp Pulse Resp BP Pulse Ox 36.6 C 66 18 109/50 L 96 05/17/23 08:15 05/17/23 08:15 05/17/23 08:15 05/17/23 08:15 05/17/23 08:15 Pain Score Most Recent Pain Score: Most Recent Pain Score Pain Level 0 05/17/23 08:15 Assessment Mental Status: Awake (Alert & Oriented to Patient Baseline) Airway and Respiratory Function: Patent airway with normal (patient baseline) respiratory exam Cardiovascular Function: Hemodynamically Stable Hydration Status: Adequately Hydrated Nausea & Vomiting: No Nausea or Vomiting Pain: Pt. Denies Any Pain Peripheral Nerve Block: Patient did not receive a nerve block
== END 2023-05-17 08:55 | disposition home or self-care (01) ==
LOC: SUR 06:15
PROVIDERS: PCP Family Medicine; Visit Provider Surgery
PROC: 0DJ68ZZ Inspection of Stomach, Via Natural or Artificial Opening Endoscopic (ICD-10-PCS; CPT 43235; principal; 2023-05-17 07:30)
DX: K22.711 Barrett's esophagus with high grade dysplasia (principal); F17.200 Nicotine dependence, unspecified, uncomplicated; I10 Essential (primary) hypertension; Z86.79 Personal history of other diseases of the circulatory system; Z81.1 Family history of alcohol abuse and dependence
CPT/HCPCS: 43239; 88305; J1920; J2704

== ENCOUNTER 2023-06-25 10:30 | Emergency (ER) | payer MEDICARE, SELFPAY ==
[2023-06-25 10:34] VITALS: BP 132/75; PULSE 70; RESP 18; TEMP 37.2; O2SAT 98
--- NOTE | 2023-06-25 10:47 | ED.GENADUL_ITS ---
HPI General Date/Time Provider Initiated Documentation: 06/25/23 10:47 . Limitations to Documentation: no limitations . Information obtained by: patient and RN notes reviewed . History of Present Illness 67 year old F presents to the emergency department with the chief complaint of abdominal pain, nausea, vomiting, diarrhea, described as moderate, with intensity rated at 6. Quality is described as aching, and is localized to the abdomen. Patient reports no radiation. Patient started experiencing this day(s) and it has been constant. No relieving factors improve symptom(s), No exacerbating factors reported . Patient notes no other symptoms.. Patient did receive the following treatments prior to arrival, none Related Data Home Medications Medication Instructions Recorded Confirmed atorvastatin 40 mg tablet 40 mg PO HS 06/22/17 06/25/23 metoprolol tartrate 25 mg tablet 25 mg PO BID 11/05/17 06/25/23 epinephrine 0.3 mg/0.3 mL 0.3 mg (0.3 mL) IJ DAILY PRN PRN 12/15/18 06/25/23 injection, auto-injector (EpiPen #1 packet 2-Jorge) amlodipine 2.5 mg tablet 2.5 mg PO HS 04/09/19 06/25/23 acetaminophen 500 mg tablet 1,000 mg PO Q6H PRN PRN pain 03/12/20 06/25/23 omeprazole 40 mg capsule,delayed 40 mg PO DAILY 03/21/22 06/25/23 release cholecalciferol (vitamin D3) 50 50 mcg PO DAILY 10/04/22 06/25/23 mcg (2,000 unit) capsule epinephrine 0.3 mg/0.3 mL 0.3 mg IM ONCE 01/20/23 06/25/23 injection, auto-injector (EpiPen) aspirin 81 mg tablet,delayed 81 mg PO DAILY 03/09/23 06/25/23 release ondansetron 4 mg disintegrating 4 mg PO Q6H PRN nausea and 06/25/23 tablet vomiting #10 tabs Previous Rx's Medication Instructions Recorded epinephrine 0.3 mg/0.3 mL 0.3 mg (0.3 mL) IJ DAILY PRN PRN 12/15/18 injection, auto-injector (EpiPen #1 packet 2-Jorge) ondansetron 4 mg disintegrating 4 mg PO Q6H PRN nausea and 06/25/23 tablet vomiting #10 tabs Allergies Allergy/AdvReac Type Severity Reaction Status Date / Time venom-honey bee Allergy Severe Anaphylaxsi Verified 06/25/23 10:36 [bee venom (honey bee)] s losartan Allergy Intermediate facial Verified 06/25/23 10:36 swelling amoxicillin Allergy Unknown Other (See Verified 06/25/23 10:36 Comment) isosorbide AdvReac Severe headaches Verified 06/25/23 10:36 amitriptyline AdvReac Intermediate Psychosis Verified 06/25/23 10:36 morphine AdvReac Intermediate Psychosis Verified 06/25/23 10:36 oxycodone AdvReac Intermediate Psychosis Verified 06/25/23 10:36 General Stated Complaint: Nausea/Vomit/Diar MORA: 3 Review of Systems Constitutional Constitutional: Reports as per HPI, Denies chills, Denies fatigue, Denies fever(s) and Denies headache(s) ENT Ears, Nose, Mouth, and Throat: Denies headache(s) Cardiovascular Cardiovascular: Reports as per HPI, Denies chest pain and Denies dyspnea Respiratory Respiratory: Reports as per HPI, Denies cough and Denies dyspnea Gastrointestinal Gastrointestinal: Reports as per HPI Musculoskeletal Musculoskeletal: Reports as per HPI and Denies back pain Integumentary/Breasts Skin/Breast: Reports as per HPI and Denies rash Neurologic Neurologic: Reports as per HPI and Denies headache(s) Endocrine Endocrine: Denies fatigue Exam Const General: cooperative, healthy appearing, comfortable, no acute distress and well developed Nutritional Appearance: average body habitus and well nourished Orientation: alert and awake Resp Effort & Inspection: normal respiratory effort, able to speak in complete sentences and no respiratory distress Auscultation: clear to auscultation bilaterally, no rales, no rhonchi and no wheezes Cardio Rate: regular rate Rhythm: regular rhythm Heart Sounds: S1 normal and S2 normal GI Inspection: normal to inspection Palpation: soft, no hepatosplenomegaly, no guarding, tender in the RUQ; with no rebound tenderness and No ascites Percussion: normal to percussion Auscultation: hypoactive bowel sounds Back/Spine/Pelvis Back: no CVA tenderness Skin General skin exam: no rashes or lesions noted Trauma: no lacerations or abrasions Neuro General: patient alert and patient awake Cognition: normal cognition Speech: speech normal Gait: normal gait Course Vital Signs Vital signs: Vital Signs Temperature 37.2 C 06/25/23 10:34 Pulse 70 06/25/23 10:34 Respiratory Rate 18 06/25/23 10:34 Blood Pressure 132/75 06/25/23 10:34 Pulse Oximetry 98 06/25/23 10:34 Temperature 37.2 C 06/25/23 10:34 Temperature Source Skin 06/25/23 10:34 Pulse 70 06/25/23 10:34 Respiratory Rate 18 06/25/23 10:34 Blood Pressure 132/75 06/25/23 10:34 Blood Pressure Position Sitting 06/25/23 10:34 Pulse Oximetry 98 06/25/23 10:34 Oxygen Delivery Method Room Air 06/25/23 10:34 Oxygen Flow Rate 0 06/25/23 10:34 Pain Level 6 06/25/23 10:34 Medical Decision Making Patient is a pleasant 67-year-old female with past medical history significant for Hiatal hernia, Leo's esophagus, GERD, alcohol abuse in remission, hyperlipidemia, presenting today with chief complaint of nausea, vomiting, diarrhea, abdominal pain. She reports this began about 2 days ago. Has not been able to keep much down although she states she had some sips of tea and some crackers yesterday. No blood in the emesis or stool. Has been around sick contacts. Pain has been constantly along the right side of her abdomen, states it feels similar to when she had acute cholecystitis in the past with patient is status postcholecystectomy. States that she is felt sweaty and clammy but no known fevers. Past surgical hx also signficant for EGD. On exam, patient appears uncomfortable, holding right side of abdomen. lungs are clear. Normal cardiac exam, she denies any CP. No CVA tenderness. Pain with palpation fairly diffusely but worse along the RUQ. No peritoneal findings. Hypoactive bowel sounds. Will give Zofran, fluids. Will assess electrolytes. With the severity of the RUQ pain and continuous nature, will obtain CT. Discussed plan with patient who is in agreement. Labs reviewed, potassium low, will replenish. No leukocytosis. Negative flu/covid. Patient has mild BUCK, will give APAP. Waiting for read on CT FINDINGS: Liver: Fatty infiltration of the liver. Gallbladder and bile ducts: Cholecystectomy. Pancreas: Normal. No ductal dilation. Spleen: Normal. No splenomegaly. Adrenal glands: Normal. No mass. Kidneys and ureters: Subcentimeter left renal cortical hypodensities. Too small to characterize. No nephrolithiasis or hydronephrosis. Stomach and bowel: No large or small bowel dilatation. No bowel obstruction. Appendix: The appendix is not identified. No secondary signs of appendicitis. Intraperitoneal space: Unremarkable. No free air. No significant fluid collection. Vasculature: Prominent right lower lobe pulmonary veins. No change from prior study. Lymph nodes: Unremarkable. No enlarged lymph nodes. Urinary bladder: No urinary bladder calculi. Reproductive: Unremarkable as visualized.Bones/joints: Unremarkable. No acute fracture. Soft tissues: Unremarkable. IMPRESSION: No acute findings. Patient feeling improved. Advised likely viral illness. She is eating ice chips, does not want more at this time. Received IV hydration, IV K+. Discussed findings. She has had no BM or emesis since being here. Advised she f/u with PCP next week. Strict return precautions discussed. All of her questions and concerns were addressed, she is in agreement with this plan. Quality:SDOH Health Related Social Needs: No Data to Display [facility] All Active Problems (Updated 06/25/23 @ 14:00 by KRYSTINA Amador) Hypokalemia (Acute) Nausea vomiting and diarrhea (Acute) History of Leo's esophagus (Acute) Biceps tendonitis on right (Acute) Bursitis of right shoulder (Acute) Right rotator cuff tendonitis (Acute) DEPO 03/21/22 Leo's esophagus with high grade dysplasia (Acute) Tubular adenoma of colon (Acute) Leo's esophagus determined by endoscopy (Acute) Tendonitis of left rotator cuff (Acute) Subacromial steroid injection: 11/20/2020 Decreased hearing of left ear (Acute) Osteoarthritis (Chronic) Prediabetes (Acute) Screening for colon cancer (Acute) Neck strain (Acute) Contusion of hand, right (Acute) Hematoma of frontal scalp (Acute) Fall down stairs (Acute) Encounter for screening for other viral diseases (Acute) Status post total right knee replacement (Chronic 04/16/19) S/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[place] [facility] [place] Tobacco abuse (Acute) Discharge planning issues (Acute) Jaw pain (Acute) Vertigo (Acute) gerd (Acute) Hyperlipidemia (Acute) Smoker (Acute) HTN (hypertension) (Acute) cp (Acute) Medical History (Updated 06/25/23 @ 14:00 by KRYSTINA Amador) Hx of arterial aneurysm Low back pain Chronic fatigue Decreased hearing of right ear Hiatal hernia Chest pain pt. states 3+ years ago-resolved Abdominal pain [place]retts esophagus [facility] [place] GERD (gastroesophageal reflux disease) Alcohol abuse, in remission Adenomatous colon polyp Impaired fasting glucose Left ventricular hypertrophy pt. is unaware of this. Hyperlipidemia Migraine headache Depression Tobacco dependence Surgical History (Updated 05/19/23 @ 11:19 by Mackenzie Phillips) S/P coil embolization of cerebral aneurysm unruptured 2018 x2 Hx of prior ablation treatment esophageal ablation for Leo's with high grade displacia History of esophagogastroduodenoscopy (EGD) (~05/2023) path sent History of colonoscopy (~01/2021) History of hysterectomy History of knee surgery Right knee arthroscopy x 2 2015; ~2012 2023: pt. reports R TKA Hx of cholecystectomy Social History Smoking/Tobacco Use Status: Current every day Tobacco Type: cigarettes Smoking risk assessment performed?: Yes Alcohol Intake: former Year quit: 1985 Drug use: Never Substance use type: does not use Details: alcohol: 38 years ago Housing: house Current gender identity: female Do you feel safe at home: Yes Do you feel safe in your relationship?: Yes Discharge Plan Disposition Patient Disposition: Home Condition: Improving Discharge Details Clinical Impression: Nausea vomiting and diarrhea, Hypokalemia Primary Care Provider: Bela Navas ED Provider: France Sandoval Home Meds and New Rx's Prescriptions: New ondansetron 4 mg tablet,disintegrating 4 mg PO Q6H PRN (Reason: nausea and vomiting) Qty: 10 0RF Continued epinephrine [EpiPen] 0.3 mg/0.3 mL auto-injector 0.3 mg IM ONCE Rx Instructions: as a single dose; may repeat once atorvastatin 40 MG tablet 40 mg PO HS Patient Comments: 04/09/19 Pt states she takes 12am (works 3-11pm) PG cholecalciferol (vitamin D3) 50 mcg (2,000 unit) capsule 50 mcg PO DAILY aspirin 81 mg tablet,delayed release (DR/EC) 81 mg PO DAILY metoprolol tartrate 25 MG tablet 25 mg PO BID Patient Comments: 04/09/19 Pt states she takes 12pm, 12am (works 3-11pm) PG 11/21/18- 25mg PO BID per . epinephrine [EpiPen 2-Jorge] 0.3 MG/0.3 ML auto-injector 0.3 mg IJ DAILY PRN PRNQty: 1 0RF acetaminophen 500 mg tablet 1,000 mg PO Q6H PRN PRN (Reason: pain) omeprazole 40 mg capsule,delayed release(DR/EC) 40 mg PO DAILY amlodipine 2.5 MG tablet 2.5 mg PO HS Patient Comments: 04/09/19 Pt states she takes 12am (works 3-11pm) PG Discharge Instructions Instructions: Hypokalemia (ED), Acute Nausea and Vomiting (ED) Additional Instructions: Your imaging is reassuring here today. Your labs were concerning for low potassium. You were given some here through the IV, please enocurage potassium rich foods. Encouarge frequent sips of fluids. If you are unable to stay hydrated, develop fevers/chills, increased pain or other new/worsening symptoms, please seek care urgently once again. Please follow up with primary care this week for reevaluation. Referrals: Bela Navas MD [Primary Care Provider] - Discharge Data Discharge Date/Time-TO BE ENTERED AT DEPARTURE: 06/25/23 14:44
[2023-06-25] MEDS: Ondansetron 4 MG/2 ML VIAL IVP (10:58)
[2023-06-25] MEDS: Lactated Ringers 1,000 ML 1000 ML IV (10:59)
[2023-06-25 11:02] LABS: Abs Immature Grans 0.02 10^3/uL (0.0-0.06); Absolute Basophil Count 0.03 10^3/uL (0.0-0.2); Absolute Eosinophil Count 0.07 10^3/uL (0.0-0.7); Absolute Lymphocyte Count 1.43 10^3/uL (1.2-3.4); Absolute Monocyte Count 0.65 10^3/uL (0.1-0.8); Basophils % 0.4; Eosinophils % 0.9; HCT 44.7 % (36.0-46.0); HGB 14.8 g/dL (11.2-15.7); Immature Grans % 0.3; Lymphocytes % 18.6; MCH 31.4 pg (27.0-33.0); MCHC 33.1 % (32.0-36.0); MCV 95 fL (80-95); MPV 9.9 fL (8.0-11.0); Monocytes % 8.4; Neutrophils % 71.4; Platelet Count 188 10^3/uL (130-400); RBC 4.71 10^6/uL (3.93-5.22); RDW 12.3 % (11.7-14.6); RDW-SD 43.5 fL
[2023-06-25 11:25] LABS: ALT 46 U/L (14-59); AST 32 U/L (15-37); Albumin 3.7 g/dL (3.4-5.0); Alkaline Phosphatase 89 U/L (46-116); BUN 18 mg/dL (7-18); Bilirubin, Total 0.8 mg/dL (0.2-1.0); Calcium 9.4 mg/dL (8.5-10.1); Chloride 104 mmol/L (98-107); Estimated GFR 60.98 (mL/min/1.73m2); Glucose 116 mg/dL (74-106); Lipase 25 U/L (16-77); Magnesium 1.8 mg/dL (1.8-2.4); Potassium 3.2 mmol/L (3.5-5.1); Sodium 144 mmol/L (136-145); Total Protein 7.2 g/dL (6.4-8.2)
[2023-06-25 11:46] LABS: COVID-19 PCR Negative (Negative); Influenza A PCR Negative (Negative); Influenza B PCR Negative (Negative); RSV PCR Negative (Negative)
[2023-06-25 11:49] LABS: Source Nasopharynx
[2023-06-25] MEDS: POTASSIUM CHLORIDE 20 MEQ/100 ML BAG 50 MEQ IVPB (12:02)
--- NOTE | 2023-06-25 12:45 | DI.CT_ITS ---
Exam(s) CT ABDOMEN PELVIS W EXAM: CT ABDOMEN PELVIS W CLINICAL HISTORY: right sided abdominal pain, N/V/D. TECHNIQUE: Imaging Protocol: Axial computed tomography images with coronal and sagittal reformatted images were created and reviewed CONTRAST MATERIAL: Intravenous: Omnipaque 350 Contrast volume:100 ml Oral: no COMPARISON: CT CT CHEST/ABD/PEL W from 08/26/2021 FINDINGS: ABDOMEN and PELVIS: Lung Bases: No acute findings. Question tiny hiatal hernia. Aberrant pulmonary vein the medial le ft lower lobe. Liver: Normal density. No measurable mass. Gallbladder and biliary tract: Cholecystectomy.No radiodense calculus or dilation. Pancreas: Normal density. No abnormal calcifications or inflammatory process. No evidence of mass. Spleen: Normal. Kidneys: Normal size, contour and axis. No radiodense stones. No obstructive uropathy. No suspicious masses seen. Adrenal glands: No masses seen. Vasculature: Abdominal aorta non-dilated. Atherosclerotic changes. Soft tissues: Unremarkable. Bladder: No gross wall thickening. No calculi.No focal mass. Bowel: Small amount of stool. No obstruction. No bowel wall thickening. Appendix normal. Peritoneal cavity: No ascites. No focal collection or mesenteric inflammatory response. Bones: Degenerative changes greatest at L4-5. Reproductive organs: Within normal limits. Lymph nodes: Unremarkable. IMPRESSION:: No acute abnormality in the abdomen and pelvis. RADIATION DOSE DELIVERED: Total DLP DATA REPOSITORY: All CT scans at this facility are submitted to the National Radiology Data Registry (NRDR) Dose Index Registry (DIR) with the [employer] (ACR). RADIATION OPTIMIZATION: All CT scans at this facility use at least one of these dose optimization te chniques: automated exposure control; mA and/or kV adjustment per patient size (includes targeted exa ms where dose is matched to clinical indication); or iterative reconstruction.
[2023-06-25] MEDS: Normal Saline - Diluent 50 ML VIAL IJ (13:12)
[2023-06-25] MEDS: Omnipaque 350 MG/ML 100 ML BTL IJ (13:13)
[2023-06-25] MEDS: ACETAMINOPHEN 1,000 MG/100 ML BTL 400 MG IVPB (13:25)
--- NOTE | 2023-06-25 13:41 | DI.[facility]_ITS ---
PROCEDURE INFORMATION: Exam: CT Abdomen And Pelvis With Contrast Exam date and time: 06/25/2023 1:06 PM Age: 67 years old Clinical indication: Other: Nausea, vomitting, diarrhea, right sided abdominal pain TECHNIQUE: Imaging protocol: Computed tomography of the abdomen and pelvis with contrast. Radiation optimization: All CT scans at this facility use at least one of these dose optimization techniques: automated exposure control; mA and/or kV adjustment per patient size (includes targeted exams where dose is matched to clinical indication); or iterative reconstruction. Contrast material: OMNI 350; Contrast volume: 100 ml; Contrast route: INTRAVENOUS (IV); COMPARISON: CT CHEST/ABD/PEL W 08/26/2021 4:37 PM FINDINGS: Liver: Fatty infiltration of the liver. Gallbladder and bile ducts: Cholecystectomy. Pancreas: Normal. No ductal dilation. Spleen: Normal. No splenomegaly. Adrenal glands: Normal. No mass. Kidneys and ureters: Subcentimeter left renal cortical hypodensities. Too small to characterize. No nephrolithiasis or hydronephrosis. Stomach and bowel: No large or small bowel dilatation. No bowel obstruction. Appendix: The appendix is not identified. No secondary signs of appendicitis. Intraperitoneal space: Unremarkable. No free air. No significant fluid collection. Vasculature: Prominent right lower lobe pulmonary veins. No change from prior study. Lymph nodes: Unremarkable. No enlarged lymph nodes. Urinary bladder: No urinary bladder calculi. Reproductive: Unremarkable as visualized. Bones/joints: Unremarkable. No acute fracture. Soft tissues: Unremarkable. IMPRESSION: No acute findings. Dictated and Authenticated by: Conrado An MD. Ordering:OLIVIA Hough MD
[2023-06-25 13:55] VITALS: BP 132/78; PULSE 80; RESP 18; O2SAT 97
[2023-06-25 14:42] VITALS: BP 142/80; PULSE 70; RESP 17; TEMP 36.8; O2SAT 99
== END 2023-06-25 14:44 | disposition home or self-care (01) ==
PROVIDERS: Emergency Provider Physician Assistant; PCP Family Medicine
DX: R11.2 Nausea with vomiting, unspecified (principal); R19.7 Diarrhea, unspecified; I10 Essential (primary) hypertension; E78.5 Hyperlipidemia, unspecified; F17.210 Nicotine dependence, cigarettes, uncomplicated; Z11.52 Encounter for screening for COVID-19; Z79.82 Long term (current) use of aspirin
CPT/HCPCS: 80053; 83690; 87637; 96361; 96365; 96366; 96375; 99285; 74177; 83735; 85025; 99284; J0131; J2405; J3480; J3490

== ENCOUNTER 2023-07-21 18:48 | Outpatient (REF) | payer MEDICARE, SELFPAY ==
[2023-07-21 20:09] LABS: Anion Gap 6.4 mmol/L (3-11); BUN 19 mg/dL (7-18); CO2 29.6 mmol/L (21.0-32.0); CREATININE 0.9 mg/dL (0.55-1.02); Calcium 9.7 mg/dL (8.5-10.1); Chloride 107 mmol/L (98-107); Estimated GFR 68.77 (mL/min/1.73m2); Ferritin 43 ng/mL (8-252); Folate 10.3 ng/mL (8.6-20.0); Glucose 106 mg/dL (74-106); Potassium 4.5 mmol/L (3.5-5.1); Sodium 143 mmol/L (136-145); Vitamin B12 496 pg/mL (193-986)
[2023-07-21 20:44] LABS: Vitamin D 25 Total 23.2 ng/mL (30-100)
[2023-07-27 09:31] LABS: Methylmalonic Acid 0.35 nmol/mL (<=0.40)
== END 2023-07-21 18:49 | disposition home or self-care (01) ==
LOC: NCHCN 18:48
PROVIDERS: PCP Family Medicine; Referring Provider Family Medicine; Visit Provider Family Medicine
DX: R73.03 Prediabetes (principal); D75.89 Other specified diseases of blood and blood-forming organs; E55.9 Vitamin D deficiency, unspecified
CPT/HCPCS: 80048; 80186; 82306; 82607; 82728; 82746; 83036

== ENCOUNTER → 2023-07-28 01:27 | Outpatient (CLI) | payer MEDICARE, SELFPAY ==
--- NOTE | 2023-07-28 | DI.CTLCSR_ITS ---
Exam(s) CT CHEST LUNG CANCER SCREEN EXAM: CT CHEST LUNG CANCER SCREEN CLINICAL HISTORY: CURRENT SMOKER, F17.210, SCREENING FOR LUNG CANCER TECHNIQUE: Imaging Protocol: Axial computed tomography images with coronal and sagittal reformatted images were created and reviewed. Low dose screening protocol. COMPARISON: CT CT CHEST/ABD/PEL W from 08/26/2021 FINDINGS: Tracheobronchial tree: No bronchiectasis or mucus plugging.. Mediastinum and Raine: No dominant adenopathy or fluid collection. Pulmonary parenchyma: No consolidation or dominant measurable mass. Mild emphysematous changes. Lung Nodules: None. Pleura: No effusion. No pneumothorax. Heart: The heart is mildly dilated. Mild coronary artery calcifications are seen. Aorta: Thoracic aorta non-dilated. Upper abdomen: Small hiatal hernia. Bones: Unremarkable for age. Soft Tissues: Unremarkable. IMPRESSION: No suspicious pulmonary nodules. Lung RADS Cat 1 - Negative: No nodules and definitely benign nodules Lung-RADS 1.0 CATEGORIES: Category 0 - Prior chest CT exam(s) being located for comparison. Category 1 - Annual screening in 12 months. No nodules or definitely benign nodules. Category 2 - Annual screening in 12 months. Benign appearance. Nodules with low likelihood of becomin g active cancer. Category 3 - 6-month follow-up. Probably benign. Short-term follow-up suggested. Nodules with low lik elihood of becoming active cancer. Category 4A - 3-month follow-up and CT/PET if >8 mm in size. Suspicious finding. Findings which requi re additional testing. Category 4B - Findings which require additional testing and tissue sampling. Category 4X - Category 3 or 4 nodules with additional features or imaging findings that increases the suspicion of malignancy. Modifier S- Potentially clinically significant findings (non lung cancer) RADIATION DOSE DELIVERED: Total DLP DATA REPOSITORY: All CT scans at this facility are submitted to the National Radiology Data Registry (NRDR) Dose Index Registry (DIR) with the [employer] (ACR). RADIATION OPTIMIZATION: All CT scans at this facility use at least one of these dose optimization te chniques: automated exposure control; mA and/or kV adjustment per patient size (includes targeted exa ms where dose is matched to clinical indication); or iterative reconstruction.
== END ==
PROVIDERS: PCP Family Medicine; Visit Provider Family Medicine
DX: F17.210 Nicotine dependence, cigarettes, uncomplicated (principal); Z12.2 Encounter for screening for malignant neoplasm of respiratory organs
CPT/HCPCS: 71271

== ENCOUNTER 2024-01-23 01:13 | Outpatient (CLI) | payer MEDICARE, SELFPAY ==
--- NOTE | 2024-01-23 | DI.MAMMO_ITS ---
Exam(s) MAMMO SCREENING EXAM: MAMMO SCREENING CLINICAL HISTORY: SCREENING, Z12.31 TECHNIQUE: Mammograms were interpreted according to the usual protocol including computer analysis w [employer] CAD system, tomosynthesis and C-view imaging. COMPARISON: 2016 through 2021 FINDINGS: The breasts are composed of heterogeneously dense fibroglandular densities, Breast Density category C . No suspicious masses or suspicious microcalcifications are seen. No skin thickening or abnormal axillary lymph nodes are seen. There has been no significant change from prior exams. IMPRESSION: BI-RADS Category 1, Negative mammogram. Yearly screening mammography is recommended. Breast Density Category C, heterogeneously Dense. The mammogram demonstrates the patient's breast tissue is dense. Dense breast tissue is very common a nd is not abnormal but dense breast tissue can make it harder to find cancer on a mammogram. Also, de nse breast tissue may increase breast cancer risk. This information about the result of the mammogram report was provided to the patient to raise their awareness. Use this report when you speak with the patient about their risks for breast cancer, which includes their family history. At that time, you may recommend additional screening tests (Ultrasound or MRI) as they might be useful based on their r isk. A negative radiographic report should not delay biopsy if a dominant or clinically suspicious mass is present. Up to ten percent of cancers are not identified on mammography. A negative report may reinforce clinical impression. Adenosis and dense breasts may obscure an underlying neoplasm. False positive reports average 6 to 10%.
== END 2024-01-23 01:33 ==
LOC: DI 01:13
PROVIDERS: PCP Family Medicine; Visit Provider Family Medicine
DX: Z12.31 Encounter for screening mammogram for malignant neoplasm of breast (principal)
CPT/HCPCS: 77063; 77067

== ENCOUNTER 2024-07-24 12:53 | Outpatient (CLI) | payer MEDICARE, SELFPAY ==
--- NOTE | 2024-07-24 | DI.RAD_ITS ---
Exam(s) XR CHEST 2V PA LATERAL EXAM: XR CHEST 2V PA LATERAL CLINICAL HISTORY: R05.3 Chronic cough TECHNIQUE: 2D digital imaging was performed of the chest. Two images were obtained. PA and lateral views were obtained. COMPARISON: CR XR CHEST 2V PA LATERAL from 05/18/2018 FINDINGS: MEDIASTINUM: Normal. HEART: Normal. PULMONARY VASCULATURE: Normal. LUNGS: Clear. PLEURAL SPACE: No pleural effusion or pneumothorax. BONE:Within normal limits for the patient's age. OTHER FINDINGS:Normal. IMPRESSION: No acute pulmonary findings. DATA REPOSITORY: RADIATION DOSE DELIVERED:
== END 2024-07-24 13:13 ==
PROVIDERS: PCP Family Medicine; Visit Provider Physician Assistant Medical
DX: R05.3 Chronic cough (principal)
CPT/HCPCS: 71046

== ENCOUNTER 2024-11-05 12:01 | Outpatient (CLI) | payer MEDICARE, SELFPAY ==
--- NOTE | 2024-11-05 | DI.RAD_ITS ---
Exam(s) XR CHEST 2V PA LATERAL EXAM: XR CHEST 2V PA LATERAL CLINICAL HISTORY: ACUTE COUGH R05.1 X 1 WEEK TECHNIQUE: 2D digital imaging was performed. Two views. COMPARISON: CT CT CHEST LUNG CANCER SCREEN from 07/28/2023 CR XR CHEST 2V PA LATERAL from 07/24/2024 FINDINGS: HEART: Uppernormal in size. Aorta: Not dilated. PULMONARY VASCULATURE: Normal. MEDIASTINUM: Unremarkable. LUNGS: Clear. PLEURAL SPACE: No pleural effusion or pneumothorax. BONE:Unremarkable for age. SOFT TISSUES: Unremarkable. IMPRESSION: No acute abnormality. DATA REPOSITORY: RADIATION DOSE DELIVERED:
== END 2024-11-05 12:21 ==
PROVIDERS: PCP Family Medicine; Visit Provider Nurse Practitioner Family
DX: R05.1 Acute cough (principal)
CPT/HCPCS: 71046

== ENCOUNTER 2025-03-12 18:34 | Outpatient (REF) | payer MEDICARE, SELFPAY ==
[2025-03-12 15:08] LABS: HCT 46.1 % (36.0-46.0); HGB 15.0 g/dL (11.2-15.7); MCH 31.8 pg (27.0-33.0); MCHC 32.5 % (32.0-36.0); MCV 98 fL (80-95); MPV 9.7 fL (8.0-11.0); Platelet Count 243 10^3/uL (130-400); RBC 4.72 10^6/uL (3.93-5.22); RDW 12.4 % (11.7-14.6); RDW-SD 44.7 fL; WBC 9.72 10^3/uL (4.4-10.8)
[2025-03-14 09:07] LABS: Lyme Ab w Rflx to Lyme Confirm Negative (Negative)
[2025-03-15 22:46] LABS: B. miyamotoi PCR Negative (Negative); Babesia divergens/MO-1 Negative (Negative); Ehrlichia muris eauclairensis Negative (Negative)
== END 2025-03-12 18:35 | disposition home or self-care (01) ==
LOC: LBO 18:34
PROVIDERS: PCP Family Medicine; Visit Provider Family Medicine
DX: S20.462D Insect bite (nonvenomous) of left back wall of thorax, subsequent encounter (principal); W57.XXXD Bitten or stung by nonvenomous insect and other nonvenomous arthropods, subsequent encounter; R53.81 Other malaise; R53.83 Other fatigue
CPT/HCPCS: 85027; 87798; 86618

== ENCOUNTER 2025-04-30 03:10 | Emergency (ER) | payer MEDICARE, SELFPAY ==
[2025-04-30 03:12] VITALS: BP 154/61; PULSE 70; RESP 16; TEMP 36.6; O2SAT 95
--- NOTE | 2025-04-30 03:15 | DI.RAD_ITS ---
Exam(s) XR PELVIS AP XR FEMUR RT EXAM: XR PELVIS AP CLINICAL HISTORY: Fall, pain in right hip. TECHNIQUE: 2D digital imaging was performed. Single AP view of the pelvis. AP and lateral views of the right femur. COMPARISON: CR,XR XR PELVIS AP from 08/01/2020 CR,XR XR FEMUR RT from 04/30/2025 FINDINGS: BONES: No acute fracture is present. No bony destructive lesion is seen. JOINTS: No dislocation present. Right knee prosthesis is unremarkable. No hip joint space narrowing is present. SOFT TISSUE: Normal. IMPRESSION: No acute abnormality. The preliminary [facility] report was reviewed. DATA REPOSITORY: RADIATION DOSE DELIVERED:
--- NOTE | 2025-04-30 03:15 | DI.RAD_ITS ---
Exam(s) XR SHOULDER RT COMPLETE 2+V EXAM: XR SHOULDER RT COMPLETE 2+V CLINICAL HISTORY: Fall, pain to AC joint and right shoulder. TECHNIQUE: 2D digital imaging was performed. Four views. COMPARISON: CR,XR XR SHOULDER RT COMPLETE 2+V from 12/08/2021 FINDINGS: BONES: No acute fracture is present. No bony destructive lesion is seen. JOINTS: No dislocation present. Mild degenerative changes. SOFT TISSUE: Normal. IMPRESSION: No acute abnormality. The preliminary [facility] report was reviewed. DATA REPOSITORY: RADIATION DOSE DELIVERED:
--- NOTE | 2025-04-30 03:15 | DI.CT_ITS ---
Exam(s) CT HEAD CERVICAL SPINE WO EXAM: CT HEAD CERVICAL SPINE WO CLINICAL HISTORY: Fall, hit head. TECHNIQUE: Imaging Protocol: Axial computed tomography images with coronal and sagittal reformatted images were created and reviewed COMPARISON: CT CT BRAIN CTA from 08/26/2021 FINDINGS: Head CT Ventricles and Extra axial spaces: Normal in size and morphology for the patient's age. Hemorrhage: None. Cerebral parenchyma: No evidence of mass or acute infarct. Aneurysm coil again noted. Midline shift: None. Brainstem/Cerebellum: Normal. Calvarium: Normal. Visualized Paranasal sinuses/Mastoids: Clear. Soft tissues: Unremarkable. Cervical Spine CT BONES: Vertebral body heights are maintained. Straightening of the normal cervical lordosis. Degenerative slight spondylolisthesis at C7-T1,. There is no evidence of acute fracture. Degenerative disc changes and facet degenerative changes are seen . SOFT TISSUES: No paraspinal hematoma. The airway appears intact. No pneumothorax is seen at the lung apices. IMPRESSION: Head CT: No acute abnormality.Aneurysm coils again noted. C-spine CT: Degenerative changes, no acute abnormality. The preliminary [facility] report was reviewed. RADIATION DOSE DELIVERED: 1,071.29mGy.cm Total DLP DATA REPOSITORY: All CT scans at this facility are submitted to the National Radiology Data Registry (NRDR) Dose Index Registry (DIR) with the [employer] (ACR). RADIATION OPTIMIZATION: All CT scans at this facility use at least one of these dose optimization techniques: automated exposure control; mA and/or kV adjustment per patient size (includes targeted exams where dose is matched to clinical indication); or iterative reconstruction.
--- NOTE | 2025-04-30 03:15 | DI.RAD_ITS ---
Exam(s) XR ELBOW RT COMPLETE EXAM: XR ELBOW RT COMPLETE CLINICAL HISTORY: Fall, pain in elbow. TECHNIQUE: 2D digital imaging was performed. Three views. COMPARISON: No exams were available for comparison FINDINGS: BONES: No acute fracture is present. No bony destructive lesion is seen. JOINTS: The elbow is normally aligned. Degenerative changes. No joint effusion is seen. SOFT TISSUE: Normal. IMPRESSION: Degenerative changes. No evidence of fracture. The preliminary [facility] report was reviewed. DATA REPOSITORY: RADIATION DOSE DELIVERED:
--- NOTE | 2025-04-30 03:15 | DI.RAD_ITS ---
Exam(s) XR HAND RT COMPLETE XR WRIST RT COMPLETE EXAM: XR WRIST RT COMPLETE CLINICAL HISTORY: Fall, pain in 3rd, 4th and 5th metacarpals and dis. TECHNIQUE: 2D digital imaging was performed. Three views of the wrist and hand. COMPARISON: CR,XR XR HAND RT COMPLETE from 04/30/2025 FINDINGS: BONES: No acute fracture is present. No bony destructive lesion is seen. There is slight deformity at the distal radius which may be secondary to an old fracture. JOINTS: Widening of the scapholunate distance consistent with scapholunate ligament disruption, uncertain chronicity. There are mild degenerative changes of the wrist and interphalangeal joints. SOFT TISSUE: Normal mild swelling around the wrist. IMPRESSION: No evidence of acute fracture. Degenerative changes. Widening of the scapholunate distance of uncertain chronicity. The preliminary [facility] report was reviewed. DATA REPOSITORY: RADIATION DOSE DELIVERED:
--- NOTE | 2025-04-30 03:31 | W.ED.GENAD ---
Discharge Plan Disposition Patient Disposition: Home Condition: Good Discharge Details Clinical Impression: Fall, Contusion of multiple sites, Injury of right wrist, Complete tear of wrist ligament, Acute pain of right shoulder Primary Care Provider: Bela Navas ED Provider: Estevan Forbes Home Meds and New Rx's Prescriptions: No Action epinephrine [EpiPen] 0.3 mg/0.3 mL auto-injector 0.3 mg IM ONCE Rx Instructions: as a single dose; may repeat once atorvastatin 40 MG tablet 40 mg PO HS Patient Comments: 04/09/19 Pt states she takes 12am (works 3-11pm) PG cholecalciferol (vitamin D3) 50 mcg (2,000 unit) capsule 50 mcg PO DAILY aspirin 81 mg tablet,delayed release (DR/EC) 81 mg PO DAILY metoprolol tartrate 25 MG tablet 25 mg PO BID Patient Comments: 04/09/19 Pt states she takes 12pm, 12am (works 3-11pm) PG 7/10/18- 25mg PO BID per . epinephrine [EpiPen 2-Jorge] 0.3 MG/0.3 ML auto-injector 0.3 mg IJ DAILY PRN PRNQty: 1 0RF acetaminophen 500 mg tablet 1,000 mg PO Q6H PRN PRN (Reason: pain) omeprazole 40 mg capsule,delayed release(DR/EC) 40 mg PO DAILY amlodipine 2.5 MG tablet 2.5 mg PO HS Patient Comments: 04/09/19 Pt states she takes 12am (works 3-11pm) PG ondansetron 4 mg tablet,disintegrating 4 mg PO Q6H PRN (Reason: nausea and vomiting) Qty: 10 0RF Discharge Instructions Instructions: Wrist Sprain ED Additional Instructions: At this time there is no evidence per the radiologist of fracture of the bones of your wrist elbow shoulder head neck or hip. However there is significant bruising and contusion to those areas. There is also concern that there may be a ligamentous tear in your wrist from the injury. Please keep the wrist splint on throughout the day to help with the pain and maintain support for your wrist. Please take Tylenol 500 to 1000 mg every 6 hours as needed for pain. Please apply the Voltaren gel to the tender areas every 6-8 hours as needed for pain. Please continue to use ice and heat to help alleviate the pain as well. Due to the concern for the ligamentous tear, we have placed a referral with orthopedics. They will contact you for an appointment time. You have also been given 2 tablets of hydrocodone/[place] for use at home. Please take these only as needed for breakthrough pain. Please continue to move your shoulder around in all directions to help prevent frozen shoulder syndrome. If you notice any worsening of your symptoms, or any new symptoms such as vomiting, diarrhea, fever, chills, shortness of breath, chest pain, numbness, weakness, or fainting , please return immediately to the emergency department for reevaluation. Please follow up with your primary care provider as soon as possible for reassessment and reevaluation. As always, it was a pleasure participating in your medical care today. Stand Alone Forms: [facility] Prescribed Opioid Consent, Portal Information Referrals: Bela Navas MD [Primary Care Provider, Medicine] HPI General Date/Time Provider Initiated Documentation: 04/30/25 03:12. HPI Narrative: This is a very pleasant 69-year-old female with a past medical history of brain aneurysms, high cholesterol, hypertension, who presents today for follow-up. About 5 hours ago she was at a friend's house helping to catch a cat when she stepped backwards, subsequently she fell down a flight of stairs, falling down 4 steps, hitting the wall and then falling down 4 more. She did not have significant pain at that time and so she went home. However throughout the night she began to get more painful and achy in her right hand, right wrist, right elbow, right shoulder, and her right hip. She denies any loss of consciousness. She denies any headache. She denies any numbness tingling or vision loss. No other complaints at this time. She is not on any blood thinners. She does take a daily aspirin though. She has been taking ice, lidocaine and Tylenol to help with her pain. No other complaints at this time. Pain is made worse with movement. Related Data Home Medications ?Medication ?Instructions ?Recorded ?Confirmed atorvastatin 40 mg tablet 40 mg PO HS 06/22/17 04/30/25 metoprolol tartrate 25 mg tablet 25 mg PO BID 11/05/17 04/30/25 epinephrine 0.3 mg/0.3 mL 0.3 mg (0.3 mL) IJ DAILY PRN PRN 12/15/18 04/30/25 injection, auto-injector (EpiPen #1 packet 2-Jorge) amlodipine 2.5 mg tablet 2.5 mg PO HS 04/09/19 04/30/25 acetaminophen 500 mg tablet 1,000 mg PO Q6H PRN PRN pain 03/12/20 04/30/25 Held on 04/30/25. Instructions: Pt Stopped/Never Started omeprazole 40 mg capsule,delayed 40 mg PO DAILY 03/21/22 04/30/25 release cholecalciferol (vitamin D3) 50 50 mcg PO DAILY 10/04/22 04/30/25 mcg (2,000 unit) capsule epinephrine 0.3 mg/0.3 mL 0.3 mg IM ONCE 01/20/23 04/30/25 injection, auto-injector (EpiPen) aspirin 81 mg tablet,delayed 81 mg PO DAILY 03/09/23 04/30/25 release ondansetron 4 mg disintegrating 4 mg PO Q6H PRN nausea and 06/25/23 04/30/25 tablet vomiting #10 tabs Held on 04/30/25. Instructions: Pt Stopped/Never Started Previous Rx's ?Medication ?Instructions ?Recorded epinephrine 0.3 mg/0.3 mL 0.3 mg (0.3 mL) IJ DAILY PRN PRN 12/15/18 injection, auto-injector (EpiPen #1 packet 2-Jorge) ondansetron 4 mg disintegrating 4 mg PO Q6H PRN nausea and 06/25/23 tablet vomiting #10 tabs Held on 04/30/25. Instructions: Pt Stopped/Never Started Allergies Allergy/AdvReac Type Severity Reaction Status Date / Time venom-honey bee (bee venom Allergy Severe Anaphylaxsi Verified 04/30/25 03:18 (honey bee)) s losartan Allergy Intermediate facial Verified 04/30/25 03:18 swelling amoxicillin Allergy Unknown Other (See Verified 04/30/25 03:18 Comment) isosorbide AdvReac Severe headaches Verified 04/30/25 03:18 amitriptyline AdvReac Intermediate Psychosis Verified 04/30/25 03:18 morphine AdvReac Intermediate Psychosis Verified 04/30/25 03:18 oxycodone AdvReac Intermediate Psychosis Verified 04/30/25 03:18 General Stated Complaint: Fall/Non TraumaCriteria MORA: 3 Exam Narrative Exam Narrative: 1.Const: Well-nourished, Well-developed, appearing stated age 2.Eyes: PERRL, no conjunctival injection, and symmetrical lids. 3.ENT: Atraumatic external nose and ears. Moist MM. Neck: Symmetric, trachea midline, No thyromegaly. There is no evidence of raccoon eyes, saucedo sign, CSF rhinorrhea, mastoid tenderness, cranial crepitus, hemotympanum, exophthalmos, or hyphema. Patient demonstrates intact dentition with no signs of tooth avulsion or fracture, no signs of jaw deformity, no evidence of a LeFort's fracture, with an intact palate, nose and orbital region. There is no evidence of a nasal septal hematoma. No proptosis. Jaw closes symmetrically. Airway is clear. 4.CVS: +S1/S2, Peripheral pulses 2+ and equal in all extremities. Brisk capillary refill in all extremities. 5.RESP: Unlabored respiratory effort. Clear to auscultation bilaterally. No wheezes rales or rhonchi 6.GI: Soft, Nontender/Nondistended, No hepatosplenomegaly. No guarding or rebound. 7.MSK: Normocephalic, Extremities w/o deformity or ttp No cyanosis or clubbing, tenderness is located at the right AC joint and the right humeral head. She also has tenderness over the humerus, the elbow, and the wrist. She demonstrates reasonable range of motion for the right shoulder and the elbow, but limited range of motion with the right wrist and hand. Tenderness throughout the wrist primarily at the distal ulna, as well as on the 3rd, 4th and 5th metacarpals, and fingers in that area. Right hip demonstrates mild tenderness, mild pain with logroll however she has good range of motion and strength with the hip. No midline tenderness to palpation over the CTLS spine. Normal ROM in flexion, extension, side bend, and rotation. Patient has +5 out of 5 strength in the lower extremities in dorsiflexion and plantarflexion, knee flexion and extension, hip flexion and extension. Normal strength for dorsiflexion and plantar flexion of the great toe bilaterally. There is +2 over 2 dorsalis pedis pulses bilaterally. There is normal sensation to the skin with light touch at the foot, knee, and hip. Normal saddle sensation. Good sensation over the deep sural nerve area bilaterally. Reflexes are +2 over 4 in the patellar reflex bilaterally. +5 out of 5 strength in the medial, ulnar, radial nerve distribution bilaterally in the hands as well as intact light touch sensation to these dermatomes on the hands 8.Skin: Warm, Dry. No rashes or lesions. 9.Neuro: tour operator II-XII grossly intact. Sensation grossly intact, no focal neurologic deficits. 10.Psych: (AAO) x3. Appropriate mood and affect Course Vital Signs Vital signs: Vital Signs Temperature 36.6 C 04/30/25 03:12 Pulse 70 04/30/25 03:12 Respiratory Rate 16 04/30/25 03:12 Blood Pressure 154/61 H 04/30/25 03:12 Pulse Oximetry 95 04/30/25 03:12 Temperature 36.6 C 04/30/25 03:12 Temperature Source Oral 04/30/25 03:12 Pulse 70 04/30/25 03:12 Respiratory Rate 16 04/30/25 03:12 Blood Pressure 154/61 H 04/30/25 03:12 Blood Pressure Position Sitting 04/30/25 03:12 Pulse Oximetry 95 04/30/25 03:12 Oxygen Delivery Method Room Air 04/30/25 03:12 Oxygen Flow Rate 0 04/30/25 03:12 Pain Level 10 04/30/25 03:12 Medical Decision Making This is a very pleasant 69-year-old female with a past medical history of brain aneurysms, high cholesterol, hypertension, who presents today for follow-up. About 5 hours ago she was at a friend's house helping to catch a cat when she stepped backwards, subsequently she fell down a flight of stairs, falling down 4 steps, hitting the wall and then falling down 4 more. She did not have significant pain at that time and so she went home. However throughout the night she began to get more painful and achy in her right hand, right wrist, right elbow, right shoulder, and her right hip. She denies any loss of consciousness. She denies any headache. She denies any numbness tingling or vision loss. No other complaints at this time. She is not on any blood thinners. She does take a daily aspirin though. She has been taking ice, lidocaine and Tylenol to help with her pain. No other complaints at this time. Pain is made worse with movement. Exam demonstrates no evidence of significant cranial trauma, no chest or abdominal wall tenderness. She does have tenderness over the right shoulder elbow and wrist, as well as the right hip. Will get x-rays of these areas. Because of her age and risk factors we will get CT imaging of the brain to make sure there is no bleed. She shows no other signs of trauma at this time. Will give Tylenol, monitor closely and reassess. 5:44 AM Imaging has returned negative for significant acute process. No acute intracranial etiology noted per radiology. There is vertebral body malalignment of C7 and T1, however she has no tenderness here. Suspect chronic component. No acute fracture of the other radiographic images, however there is evidence to suggest a tear of the interosseous ligament between the lunate and navicular bones. We will give a thumb spica wrist splint. Patient is given Voltaren gel, recommend continued NSAIDs, ice, heat, and we will give 2 [place] tablets for home use which she tolerated in the past after knee surgery. This will be for breakthrough pain only. Patient otherwise looks clinically well. No signs of neurovascular compromise, neurodeficit, or altered mental status. Will place referral with orthopedics for outpatient follow-up in regards to the wrist. Recommend continued movement of the shoulder to prevent frozen shoulder syndrome. Discussed red flags for which to return. I have extensively reviewed the treatment plan and discharge instructions with the patient. I have addressed all patient concerns at this time. The patient was made aware of what symptoms to monitor for that would warrant a return to the emergency department. Discussed the plan with the patient, they demonstrate verbal understanding and agreement with our assessment and plan at this time. The documentation in this chart was dictated using [employer] dictation software. Please excuse any dictation errors. FINDINGS: Brain: Normal. No hemorrhage. Unremarkable white matter. No mass effect. Cerebral ventricles: No ventriculomegaly. Paranasal sinuses: Visualized sinuses are unremarkable. No fluid levels. Mastoid air cells: Visualized mastoid air cells are well aerated. Bones: Unremarkable. No acute fracture. Soft tissues: Unremarkable. Vasculature: Metallic foreign bodies are seen in the region of the anterior communicating artery and proximal left middle cerebral artery suggesting embolization coils, a finding also present on the previous study. IMPRESSION: 1. No acute process identified. 2. Embolization coils. FINDINGS: Bones: There are degenerative changes of multiple articular facets bilaterally. There is mild narrowing of the intervertebral disc spaces at C2-C3 and C6-C7-T1. There is marked narrowing of the intervertebral disc space at C5-C6. There is approximately 1.5 mm anterior malalignment of C7 in relationship to T1. There is bony impingement on the neural foramen bilaterally at C 5-C6-C7. There are no acute wedge compression fracture deformities. There are no focal bone lesions. Lungs: Lung apices are normal. Vasculature: Scattered arteriosclerotic changes are noted. Soft tissues: Unremarkable. IMPRESSION: 1. No fracture. 2. Vertebral body malalignment at C7-T1, probably degenerative in nature. 3. Other degenerative changes of the spine, as described above. Thank you for allowing us to participate in the care of your patient. Dictated and Authenticated by: Damien Keating MD 04/30/2025 4:22 AM Eastern Time ([place] & [place]) COMPARISON: CR XR SHOULDER RT COMPLETE 2+V 12/08/2021 3:34 PM FINDINGS: Bones/joints: There are no acute fractures or dislocations. There are no focal lytic or blastic bone lesions. Soft tissues: Normal. IMPRESSION: No acute fracture. Thank you for allowing us to participate in the care of your patient. Dictated and Authenticated by: Damien Keating MD 04/30/2025 5:05 AM Eastern Time ([place] & [place]) FINDINGS: Bones/joints: There are no acute fractures or dislocations. There are no focal lytic or blastic bone lesions. There is mild widening of the joint space between the lunate and navicular bone suggesting a tear of the interosseous ligament. Soft tissues: Normal. IMPRESSION: 1. No acute fracture. 2. Suggestion of tear of the interosseous ligament between the lunate and navicular bones. Thank you for allowing us to participate in the care of your patient. Dictated and Authenticated by: Damien Keating MD 04/30/2025 4:44 AM Eastern Time ([place] & [place]) FINDINGS: Bones/joints: Calcification is seen lateral to the humeroradial articulation and adjacent to the lateral humeral epicondyle. There is minimal dystrophic calcification at the posterior aspect of the proximal ulna. There are no acute fractures or dislocations. There are no focal lytic or blastic bone lesions. Soft tissues: Normal. IMPRESSION: 1. No acute fracture. 2. Suggestion of calcific tendinitis. Thank you for allowing us to participate in the care of your patient. Dictated and Authenticated by: Damien Keating MD 04/30/2025 5:00 AM Eastern Time ([place]) FINDINGS: Bones/joints: The patient is status post total knee replacement. There are no acute fractures or dislocations. There are no focal lytic or blastic bone lesions. Soft tissues: Unremarkable. IMPRESSION: Status post total knee replacement surgery. Thank you for allowing us to participate in the care of your patient. Dictated and Authenticated by: Damien Keating MD 04/30/2025 4:53 AM Eastern Time ([place] & [place]) INDINGS: Bones/joints: There are no acute fractures, dislocations, or significant focal bone lesions. The hip joint spaces are well preserved. Soft tissues: Unremarkable. IMPRESSION: No fracture. Thank you for allowing us to participate in the care of your patient. 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) Tubular adenoma of colon (Acute) Leo's esophagus determined by endoscopy (Acute) Tendonitis of left rotator cuff (Acute) Subacromial steroid injection: 11/20/2020 Decreased hearing of left ear (Acute) Osteoarthritis (Chronic) Prediabetes (Acute) Screening for colon cancer (Acute) Neck strain (Acute) Contusion of hand, right (Acute) Hematoma of frontal scalp (Acute) Fall down stairs (Acute) Encounter for screening for other viral diseases (Acute) Status post total right knee replacement (Chronic 04/16/19) S/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) July 2017 - [facility] [place] - [place] Tobacco abuse (Acute) Discharge planning issues (Acute) Jaw pain (Acute) Vertigo (Acute) gerd (Acute) Hyperlipidemia (Acute) Smoker (Acute) HTN (hypertension) (Acute) cp (Acute) Medical History (Updated 04/30/25 @ 05:36 by Estevan Forbes DO) Hx of arterial aneurysm Low back pain Chronic fatigue Decreased hearing of right ear Hiatal hernia Chest pain pt. states 3+ years ago-resolved Abdominal pain Barretts esophagus [facility] [place] 2006 Normal path in 08/2013 GERD (gastroesophageal reflux disease) Alcohol abuse, in remission Adenomatous colon polyp Impaired fasting glucose Left ventricular hypertrophy pt. is unaware of this. Hyperlipidemia Migraine headache Depression Tobacco dependence Surgical History (Updated 05/19/23 @ 11:19 by Mackenzie Phillips) S/P coil embolization of cerebral aneurysm unruptured 2018 x2 Hx of prior ablation treatment esophageal ablation for Leo's with high grade displacia History of esophagogastroduodenoscopy (EGD) (~05/2023) path sent History of colonoscopy (~01/2021) History of hysterectomy History of knee surgery Right knee arthroscopy x 2 2015; ~2012 2023: pt. reports R TKA Hx of cholecystectomy Social History Smoking/Tobacco Use Status: Current every day Tobacco Type: cigarettes Smoking risk assessment performed?: Yes Alcohol Intake: former Year quit: 1985 Drug use: Never Substance use type: does not use Details: alcohol: 38 years ago Housing: house Current gender identity: female Do you feel safe at home: Yes Do you feel safe in your relationship?: Yes
[2025-04-30] MEDS: Acetaminophen 500 MG TAB 1000 MG PO (03:35)
[2025-04-30] MEDS: Ondansetron O.D.T. 4 MG TABEF PO (04:20)
--- NOTE | 2025-04-30 04:22 | DI.[facility]_ITS ---
PROCEDURE INFORMATION: Exam: CT Head Without Contrast Exam date and time: 04/30/2025 3:35 AM Age: 69 years old Clinical indication: Injury or trauma; Blunt trauma (contusions or hematomas); Loss of consciousness unknown; Injury date: 04/29/25; Injury details: Fall down stairs; Prior surgery; Surgery date: 6+ months; Surgery type: Coils TECHNIQUE: Imaging protocol: Computed tomography of the head without contrast. Radiation optimization: All CT scans at this facility use at least one of these dose optimization techniques: automated exposure control; mA and/or kV adjustment per patient size (includes targeted exams where dose is matched to clinical indication); or iterative reconstruction. COMPARISON: CT BRAIN CTA 08/26/2021 4:12 PM FINDINGS: Brain: Normal. No hemorrhage. Unremarkable white matter. No mass effect. Cerebral ventricles: No ventriculomegaly. Paranasal sinuses: Visualized sinuses are unremarkable. No fluid levels. Mastoid air cells: Visualized mastoid air cells are well aerated. Bones: Unremarkable. No acute fracture. Soft tissues: Unremarkable. Vasculature: Metallic foreign bodies are seen in the region of the anterior communicating artery and proximal left middle cerebral artery suggesting embolization coils, a finding also present on the previous study. IMPRESSION: 1. No acute process identified. 2. Embolization coils. PROCEDURE INFORMATION: Exam: CT Cervical Spine Without Contrast Exam date and time: 04/30/2025 3:35 AM Age: 69 years old Clinical indication: Injury or trauma; Blunt trauma (contusions or hematomas); Loss of consciousness unknown; Injury date: 04/29/25; Injury details: Fall down stairs; Prior surgery; Surgery date: 6+ months; Surgery type: Coils TECHNIQUE: Imaging protocol: Computed tomography of the cervical spine without contrast. Radiation optimization: All CT scans at this facility use at least one of these dose optimization techniques: automated exposure control; mA and/or kV adjustment per patient size (includes targeted exams where dose is matched to clinical indication); or iterative reconstruction. COMPARISON: CT HEAD CERVICAL SPINE WO 08/01/2020 3:49 AM FINDINGS: Bones: There are degenerative changes of multiple articular facets bilaterally. There is mild narrowing of the intervertebral disc spaces at C2-C3 and C6-C7-T1. There is marked narrowing of the intervertebral disc space at C5-C6. There is approximately 1.5 mm anterior malalignment of C7 in relationship to T1. There is bony impingement on the neural foramen bilaterally at C 5-C6-C7. There are no acute wedge compression fracture deformities. There are no focal bone lesions. Lungs: Lung apices are normal. Vasculature: Scattered arteriosclerotic changes are noted. Soft tissues: Unremarkable. IMPRESSION: 1. No fracture. 2. Vertebral body malalignment at C7-T1, probably degenerative in nature. 3. Other degenerative changes of the spine, as described above. Dictated and Authenticated by: Damien Keating MD. Orderin Andrei Barreto MD
--- NOTE | 2025-04-30 04:44 | DI.VRAD_ITS ---
PROCEDURE INFORMATION: Exam: XR Right Wrist Exam date and time: 04/30/2025 4:05 AM Age: 69 years old Clinical indication: Injury or trauma; Blunt trauma (contusions or hematomas); Wrist; Right; Injury date: 04/29/25; Injury details: Fall, pain in 3rd, 4th and 5th metacarpals and dis TECHNIQUE: Imaging protocol: Radiologic exam of the right wrist. Views: 3 or more views. COMPARISON: CR XR HAND RT COMPLETE 08/01/2020 3:59 AM FINDINGS: Bones/joints: There are no acute fractures or dislocations. There are no focal lytic or blastic bone lesions. There is mild widening of the joint space between the lunate and navicular bone suggesting a tear of the interosseous ligament. Soft tissues: Normal. IMPRESSION: 1. No acute fracture. 2. Suggestion of tear of the interosseous ligament between the lunate and navicular bones. Dictated and Authenticated by: Damien Keating MD. Orderin Andrei Barreto MD
--- NOTE | 2025-04-30 04:45 | DI.VRAD_ITS ---
PROCEDURE INFORMATION: Exam: XR Right Hand Exam date and time: 04/30/2025 4:04 AM Age: 69 years old Clinical indication: Injury or trauma; Blunt trauma (contusions or hematomas); Hand; Right; Injury date: 04/29/25; Injury details: Fall, pain in 3rd, 4th and 5th metacarpals and dis TECHNIQUE: Imaging protocol: Radiologic exam of the right hand. Views: 3 or more views. COMPARISON: CR XR HAND RT COMPLETE 08/01/2020 3:59 AM FINDINGS: Bones/joints: There are no acute fractures or dislocations. There are no focal lytic or blastic bone lesions. There is mild widening of the joint space between the lunate and navicular bone suggesting a tear of the interosseous ligament. Soft tissues: Normal. IMPRESSION: 1. No acute fracture. 2. Suggestion of tear of the interosseous ligament between the lunate and navicular bones. Dictated and Authenticated by: Damien Keating MD. Orderin Andrei Barreto MD
--- NOTE | 2025-04-30 04:53 | DI.VRAD_ITS ---
PROCEDURE INFORMATION: Exam: XR Right Femur Exam date and time: 04/30/2025 4:21 AM Age: 69 years old Clinical indication: Injury or trauma; Blunt trauma; Hip and thigh or upper leg; Injury date: 04/29/25; Injury details: Fall, pain in right hip; Prior surgery; Surgery date: 6+ months; Surgery type: Knee replacement TECHNIQUE: Imaging protocol: Radiologic exam of the right femur. Views: 2 views. COMPARISON: CR XR PELVIS AP 04/30/2025 4:19 AM FINDINGS: Bones/joints: The patient is status post total knee replacement. There are no acute fractures or dislocations. There are no focal lytic or blastic bone lesions. Soft tissues: Unremarkable. IMPRESSION: Status post total knee replacement surgery. Dictated and Authenticated by: Damien Keating MD. Orderin Andrei Barreto MD
--- NOTE | 2025-04-30 05:00 | DI.VRAD_ITS ---
PROCEDURE INFORMATION: Exam: XR Right Elbow Exam date and time: 04/30/2025 4:12 AM Age: 69 years old Clinical indication: Injury or trauma; Blunt trauma (contusions or hematomas); Right; Injury date: 04/29/25; Injury details: Fall, pain in elbow TECHNIQUE: Imaging protocol: Radiologic exam of the right elbow. Views: 3 or more views. COMPARISON: CR XR WRIST RT COMPLETE 04/30/2025 4:05 AM FINDINGS: Bones/joints: Calcification is seen lateral to the humeroradial articulation and adjacent to the lateral humeral epicondyle. There is minimal dystrophic calcification at the posterior aspect of the proximal ulna. There are no acute fractures or dislocations. There are no focal lytic or blastic bone lesions. Soft tissues: Normal. IMPRESSION: 1. No acute fracture. 2. Suggestion of calcific tendinitis. Dictated and Authenticated by: Damien Keating MD. Orderin Andrei Barreto MD
--- NOTE | 2025-04-30 05:05 | DI.VRAD_ITS ---
PROCEDURE INFORMATION: Exam: XR Right Shoulder Exam date and time: 04/30/2025 4:00 AM Age: 69 years old Clinical indication: Injury or trauma; Blunt trauma (contusions or hematomas); Injury date: 04/29/25; Injury details: Fall, pain to ac joint and right shoulder TECHNIQUE: Imaging protocol: Radiologic exam of the right shoulder. Views: 2 or more views. COMPARISON: CR XR SHOULDER RT COMPLETE 2+V 12/08/2021 3:34 PM FINDINGS: Bones/joints: There are no acute fractures or dislocations. There are no focal lytic or blastic bone lesions. Soft tissues: Normal. IMPRESSION: No acute fracture. Dictated and Authenticated by: Damien Keating MD. Orderin Andrei Barreto MD
--- NOTE | 2025-04-30 05:08 | DI.VRAD_ITS ---
PROCEDURE INFORMATION: Exam: XR Pelvis Exam date and time: 04/30/2025 4:19 AM Age: 69 years old Clinical indication: Injury or trauma; Blunt trauma (contusions or hematomas); Pelvic region; Injury date: 04/29/25; Injury details: Fall, pain in right hip TECHNIQUE: Imaging protocol: Radiologic exam of the pelvis. Views: 1 or 2 view. COMPARISON: CT ABDOMEN PELVIS W 06/25/2023 1:06 PM FINDINGS: Bones/joints: There are no acute fractures, dislocations, or significant focal bone lesions. The hip joint spaces are well preserved. Soft tissues: Unremarkable. IMPRESSION: No fracture. Dictated and Authenticated by: Damien Keating MD. Orderin Andrei Barreto MD
[2025-04-30] MEDS: Diclofenac 1% Gel 100 GM TUBE TP (05:36)
[2025-04-30] MEDS: HYDROcodone 5/Acetaminophen 325 TAB PO (05:43)
[2025-04-30 05:46] VITALS: BP 130/67; PULSE 60; RESP 16; O2SAT 94
--- NOTE | 2025-05-03 08:41 | NUR.NOTE ---
Access chart to print the demographic sheet for [facility] billing requisition. Nursing Note:
== END 2025-04-30 06:09 | disposition home or self-care (01) ==
PROVIDERS: Emergency Provider Student in an Organized Health Care Education/Training Program; PCP Family Medicine
DX: S63.501A Unspecified sprain of right wrist, initial encounter (principal); M25.511 Pain in right shoulder; M79.641 Pain in right hand; M25.551 Pain in right hip; T07.XXXA Unspecified multiple injuries, initial encounter; W10.8XXA Fall (on) (from) other stairs and steps, initial encounter; W22.8XXA Striking against or struck by other objects, initial encounter
CPT/HCPCS: 73552; 99284; 70450; 72125; 72170; 73030; 73080; 73110; 73130

== ENCOUNTER → 2025-05-14 09:23 | Outpatient (BNVA) | payer MEDICARE, SELFPAY | PROVIDERS: PCP Family Medicine; Referring Provider Family Medicine; Visit Provider Physician Assistant | DX: S63.8X1A Sprain of other part of right wrist and hand, initial encounter (principal); W10.8XXA Fall (on) (from) other stairs and steps, initial encounter; I10 Essential (primary) hypertension; F17.210 Nicotine dependence, cigarettes, uncomplicated | CPT/HCPCS: 99213 ==